=== PATIENT | female | born 1990 | race Caucasian/White ===

== ENCOUNTER 2016-07-26 09:54 | Emergency (ER) | payer MEDICAID ==
[~2016-07-26] VITALS: Ht 165.1 cm; Wt 56.7 kg
[~2016-07-26 09:54] MED LIST: ACET1TAB43 PO; BENZ56AE TP; CEFP500T4 PO; CEPH-506 PO; CODE-54 PO; CPH250CIP PO; DCS100C PO; DOCU100C37 PO; FAMO-119 PO; FRS325T PO; IBP600T1 PO; IBUP-1773 PO; NITR-65 PO; OMEP-10 PO; ONDAN4ODT PO; Ondansetron Hcl PO; PREN-98 PO; PREN1TAB19 PO; PREN1TAB39 PO; PROM25SU10 PR; PROM25TA14 PO
--- OUTSIDE RECORDS SUMMARY | 2016-07-26 10:00 | XMS REPORT | Continuity of Care Document ---
Author Author [facility] Organization [facility] Address Unknown Phone Unavailable Care Team Providers Care Counter Caser Name Role Phone DONTA ELKINS PCP Insurance Providers Payer Name Policy Number Subscriber Name Relationship [facility] [id number] Emiliana Villavicencio 16 Self / Same As Patient Advance Directives Directive Response Recorded Date/Time Advance Directives No 01/23/16 4:01pm Health Care Power of Deaf And Hard Of Hearing Teacher No 01/23/16 4:01pm Organ Donor Yes 01/23/16 4:01pm Resuscitation Status Full Code 01/23/16 4:01pm Problems No problem information available. Medications Current Home Medications Medication Dose Units Route Directions Days/Qty Instructions Start Date Vit37/Iron/Folic Acid 1 Each 1 Each Oral Daily 09/16/13 [Ondansetron Hcl] 4 Mg 4 Mg Oral Give Every 4 Hrs On Schedule as needed for Nausea/Vomiting 09/24/13 Cephalexin 250 Mg 250 Mg Oral Four Times Daily 01/24/16 Promethazine Hcl (Phenergan Tablet) 25 Mg 25 Mg Oral Every 6 Hours as needed for Nausea/Vomiting 01/24/16 Past Home Medications Medication Directions Ordered Status Promethazine Hcl 25 Mg Supp, 25 Mg Rectal Q 6 Hours 09/11/09 Discontinued Cefprozil 500 Mg Tablet, 1 Each Oral Twice A Day 09/11/09 Discontinued Vits W-Ca,Fe,Fa(<1MG) 1 Each Tablet, 1 Each Oral Daily 12/10/11 Discontinued Ondansetron Hcl 4 Mg Tab, 4 Mg Oral Every 4HRS 04/08/13 Discontinued Omeprazole 20 Mg Capsule.dr, 20 Mg Oral Daily 09/12/13 Discontinued Omeprazole 20 Mg Capsule.dr, 20 Mg Oral Daily 09/12/13 Discontinued Cephalexin Hcl 250 Mg Cap, 500 Mg Oral Four Times Daily 09/12/13 Discontinued Cephalexin Hcl 250 Mg Cap, 500 Mg Oral Four Times Daily 09/12/13 Discontinued Vit/Fe Fumarate/Fa 1 Each Tablet, 1 Each Oral Daily 09/12/13 Discontinued Acetaminophen/Codeine 1 Tab Tablet, 1-2 Tab Oral Every 4HRS as needed for Moderate To Severe Pain 09/24/13 Discontinued Benzocaine/Menthol 56 Ml Can, 56 Ml Topical As Directed as needed for Pain Discontinued Docusate Sodium 100 Mg Cap, 100 Mg Oral Twice A Day for Constipation Discontinued Ferrous Sulfate 325 Mg Tab, 325 Mg Oral Daily@08 09/24/13 Discontinued Ibuprofen 600 Mg Tab, 600 Mg Oral Every 6 Hours as needed for Pain 09/24/13 Discontinued Nitrofurantoin Monohyd/M-Cryst 100 Mg Capsule, 1 Tab Oral Twice A Day Discontinued Social History Social History Problem Response Recorded Date/Time Alcohol Use Past History 09/22/2013 1:35pm Recreational Drug Use N THC 09/22/2013 1:35pm Recent Foreign Travel No 01/23/2016 4:03pm Recent Infectious Disease Exposure No 01/23/2016 4:03pm Sexually Transmitted Disease No 09/22/2013 1:35pm HIV/AIDS No 09/22/2013 1:35pm Smoking Status Never a Smoker 01/23/2016 4:01pm Query Response Start Date Stop Date Smoking Status Never a Smoker Hospital Discharge Instructions No hospital discharge instructions. Plan of Care Discharge Date 01/24/16 1:06pm Instructions/Education Provided OB OUTPATIENT DISCHARGE Prescriptions See Medication Section Functional Status No functional status results. Allergies, Adverse Reactions, Alerts No known allergies. Immunizations Name Given Type Tetanus Booster (TDap) Unknown Historical Vital Signs Acute Vital Signs Vital Response Date/Time Temperature (Fahrenheit) 97.9 degrees F (97.6 - 99.5) 01/24/2016 1:30pm Temperature (Calculated Celsius) 36.04272 degrees C (36.4 - 37.5) 01/24/2016 1:30pm Temperature Source Tympanic 01/24/2016 1:30pm Pulse Rate (adult) 74 bpm (60 - 90) 01/24/2016 1:30pm Respiratory Rate 18 bpm (12 - 24) 01/24/2016 1:30pm Blood Pressure 114/72 mm Hg 01/24/2016 1:30pm Blood Pressure Mean 86 mm Hg 01/24/2016 1:30pm Pain Numeric Pain Scale 3 01/24/2016 8:15am Height (Feet) 5 feet 01/23/2016 4:03pm Height (Inches) 5.00 inches 01/23/2016 4:03pm Height (Calculated Centimeters) 165.852327 cm 01/23/2016 4:03pm Weight (Pounds) 146 pounds 01/23/2016 4:03pm Weight (Ounces) 12.7 oz 01/23/2016 4:03pm Weight (Calculated Grams) 50772.526 gm 01/23/2016 4:03pm Weight (Calculated Kilograms) 66.257246 kilograms 01/23/2016 4:03pm Calculated BMI 24.4 01/23/2016 4:03pm Results Laboratory Results Test Name Result Units Flags Reference Collection Date/Time Result Date/ Time Comments White Blood Count 10.2 10^3/uL 4.3-11.0 01/23/2016 4:55pm 01/23/2016 5: 19pm Red Blood Count 2.96 10^6/uL L 4.35-5.85 01/23/2016 4:55pm 01/23/2016 8: 04pm Hemoglobin 8.3 G/DL L 11.5-16.0 01/23/2016 4:55pm 01/23/2016 5:19pm Hematocrit 27 % L 35-52 01/23/2016 4:55pm 01/23/2016 5:19pm Mean Corpuscular Volume 92 FL 80-99 01/23/2016 4:55pm 01/23/2016 5: 19pm Mean Corpuscular Hemoglobin 29 PG 25-34 01/23/2016 4:55pm 01/23/2016 5: 19pm Mean Corpuscular Hemoglobin Concent 31 G/DL L 32-36 01/23/2016 4:55pm 06/2016 5:19pm Red Cell Distribution Width 17.7 % H 10.0-14.5 01/23/2016 4:55pm 2015 5:19pm Platelet Count 281 10^3/uL 130-400 01/23/2016 4:55pm 01/23/2016 5:19pm Mean Platelet Volume 10.8 FL H 7.4-10.4 01/23/2016 4:55pm 01/23/2016 5: 19pm Neutrophils (%) (Auto) 81 % H 42-75 01/23/2016 4:55pm 01/23/2016 5:19pm Lymphocytes (%) (Auto) 14 % 12-44 01/23/2016 4:55pm 01/23/2016 5:19pm Monocytes (%) (Auto) 5 % 0-12 01/23/2016 4:55pm 01/23/2016 5:19pm Eosinophils (%) (Auto) 0 % 0-10 01/23/2016 4:55pm 01/23/2016 5:19pm Basophils (%) (Auto) 0 % 0-10 01/23/2016 4:55pm 01/23/2016 5:19pm Neutrophils # (Auto) 8.2 X 10^3 H 1.8-7.8 01/23/2016 4:55pm 01/23/2016 5: 19pm Lymphocytes # (Auto) 1.4 X 10^3 1.0-4.0 01/23/2016 4:55pm 01/23/2016 5: 19pm Monocytes # (Auto) 0.5 X 10^3 0.0-1.0 01/23/2016 4:55pm 01/23/2016 5: 19pm Eosinophils # (Auto) 0.0 10^3/uL 0.0-0.3 01/23/2016 4:55pm 01/23/2016 5 :19pm Basophils # (Auto) 0.0 10^3/uL 0.0-0.1 01/23/2016 4:55pm 01/23/2016 5: 19pm Absolute Reticulocyte Count 71 10e9/L 24-90 01/23/2016 4:55pm 2015 8:04pm Percent Reticulocyte Count 2.40 % 0.50-2.40 01/23/2016 4:55pm 2015 8:04pm Urine Color JORGE * 01/23/2016 4:30pm 01/23/2016 4:55pm Urine Clarity VERY CLOUDY * 01/23/2016 4:30pm 01/23/2016 4:55pm Urine pH 6 5-9 01/23/2016 4:30pm 01/23/2016 4:55pm Urine Specific [place] 1.025 * 1.016-1.022 01/23/2016 4:30pm 2015 4:55pm Urine Protein 2+ * NEGATIVE 01/23/2016 4:30pm 01/23/2016 4:55pm Urine Glucose (UA) NEGATIVE NEGATIVE 01/23/2016 4:30pm 01/23/2016 4: 55pm Urine RBC (Auto) 1+ * NEGATIVE 01/23/2016 4:30pm 01/23/2016 4:55pm Urine Ketones 4+ * NEGATIVE 01/23/2016 4:30pm 01/23/2016 4:55pm Urine Nitrite NEGATIVE NEGATIVE 01/23/2016 4:30pm 01/23/2016 4:55pm Urine Bilirubin 1+ * NEGATIVE 01/23/2016 4:30pm 01/23/2016 4:55pm Urine Urobilinogen 8 MG/DL * NORMAL 01/23/2016 4:30pm 01/23/2016 4:55pm Urine Leukocyte Esterase 1+ * NEGATIVE 01/23/2016 4:30pm 01/23/2016 4: 55pm Urine RBC NONE /HPF 01/23/2016 4:30pm 01/23/2016 4:55pm Urine WBC 10-25 /HPF * 01/23/2016 4:30pm 01/23/2016 4:55pm Urine Bacteria LARGE /HPF * 01/23/2016 4:30pm 01/23/2016 4:55pm Urine Squamous Epithelial Cells 2-5 /HPF 01/23/2016 4:30pm 2015 4:55pm Urine Crystals NONE /LPF 01/23/2016 4:30pm 01/23/2016 4:55pm Urine Casts NONE /LPF 01/23/2016 4:30pm 01/23/2016 4:55pm Urine Mucus SMALL /LPF * 01/23/2016 4:30pm 01/23/2016 4:55pm Urine Culture Indicated YES 01/23/2016 4:30pm 01/23/2016 4:55pm Sodium Level 136 MMOL/L 135-145 01/24/2016 6:1401/24/2016 7:03am Potassium Level 3.4 MMOL/L L 3.6-5.0 01/24/2016 6:1401/24/2016 7:03am Chloride Level 104 MMOL/L 98-107 01/24/2016 6:1401/24/2016 7:03am Carbon Dioxide Level 23 MMOL/L 21-32 01/24/2016 6:1401/24/2016 7: 03am Anion Gap 9 MMOL/L 5-14 01/24/2016 6:1401/24/2016 7:03am Blood Urea Nitrogen 4 MG/DL L 7-18 01/24/2016 6:1401/24/2016 7:03am Creatinine 0.57 MG/DL L 0.60-1.30 01/24/2016 6:1401/24/2016 7:03am BUN/Creatinine Ratio 7 01/24/2016 6:1401/24/2016 7:03am Estimat Glomerular Filtration Rate > 60 01/24/2016 6:2015 7:03am GFR INTERPRETIVE DATA UNITS FOR ESTIMATED GFR (eGFR): mL/min/1.73 M2 REFERENCE RANGE FOR ESTIMATED GFR (eGFR) eGFR NORMAL eGFR >60 MODERATELY DECREASED eGFR 30-59 SEVERLY DECREASED eGFR 15-29 KIDNEY FAILURE <15 (OR DIALYSIS) Glucose Level 79 MG/DL 70-105 01/24/2016 6:1401/24/2016 7:03am Calcium Level 8.0 MG/DL L 8.5-10.1 01/24/2016 6:1401/24/2016 7:03am Total Bilirubin 0.5 MG/DL 0.1-1.0 01/23/2016 4:55pm 01/23/2016 5:26pm Alkaline Phosphatase 113 U/L 40-136 01/23/2016 4:55pm 01/23/2016 5: 26pm Aspartate Amino Transf (AST/SGOT) 15 U/L 5-34 01/23/2016 4:55pm 2015 5:26pm Alanine Aminotransferase (ALT/SGPT) 14 U/L 0-55 01/23/2016 4:55pm 01/22 5:26pm Total Protein 5.9 G/DL L 6.4-8.2 01/23/2016 4:55pm 01/23/2016 5:26pm Albumin 2.9 G/DL L 3.2-4.5 01/23/2016 4:55pm 01/23/2016 5:26pm Ferritin 27 ng/mL 15-150 01/23/2016 4:55pm 01/25/2016 8:58am Test performed at [facility], CLIA# [id number] [address] [place] [address] Iron Level 48 ug/dL 35-180 01/23/2016 4:55pm 01/24/2016 3:57pm Transferrin % Saturation 13 % L 15-50 01/23/2016 4:55pm 01/24/2016 3: 57pm Total Iron Binding Capacity 370 ug/dL 280-380 01/23/2016 4:55pm 2015 3:57pm Unsaturated Iron Binding Capacity 322 ug/dL 55-450 01/23/2016 4:55pm 3:57pm Test performed at [facility], CLIA# [id number] Microbiology Results Procedure Source Result Collection Date/Time Result Date/Time Urine Culture Urine, Clean Catch ESCHERICHIA COLI 01/23/2016 4:30pm 2015 12:15pm Procedures No known history of procedures. Encounters Encounter Location Arrival/Admit Date Discharge/Depart Date Attending Provider Departed Clinic [facility] 01/23/16 3:29pm 01/24/16 1: 06pm KANWAL JJ DO
--- NOTE | 2016-07-26 10:28 | ED Upper Extremity ---
General Chief Complaint: Upper Extremity Stated Complaint: L ARM INJ, FALL Nursing Triage Note: PT CO OF L ARM PAIN, STATES FELL ON ICE. DENIES HITTING HEAD OR LOC Nursing Sepsis Screen: No Definite Risk Source: patient History of Present Illness Time seen by provider: 10:22 Initial Comments The patient reports that she was coming down the back steps of her residence this morning. She stepped onto ice and fell backward rather awkwardly with her left arm thrown up and backwards. She picked herself up and went on to work. 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 She was unable to do the lifting required of her job and came here for further evaluation. Cosleep Pain/Injury Location: left shoulder Method of Injury: fell Allergies and Home Medications Allergies Coded Allergies: tramadol (Verified Allergy, Unknown, RASH, 04/27/16) Home Medications No Active Prescriptions or Reported Meds Constitutional: see HPI EENTM: no symptoms reported Respiratory: no symptoms reported Cardiovascular: no symptoms reported Gastrointestinal: no symptoms reported Genitourinary: no symptoms reported Musculoskeletal: see HPI Skin: no symptoms reported Psychiatric/Neurological: No Symptoms Reported Past Aaedyer-Leqyim-Qyityn Hx Patient Social History Alcohol Use: Denies Use Recreational Drug Use: No Smoking Status: Never a Smoker Recent Foreign Travel: No Contact w/Someone Who Travel: No Recent Infectious Disease Expo: No Recent Hopitalizations: No Physical Abuse Screen: No Sexual Abuse: No Immunizations Up To Date Tetanus Booster (TDap): Unknown Seasonal Allergies Seasonal Allergies: No Surgeries HX Surgeries: No Respiratory Hx Respiratory Disorders: No Cardiovascular Hx Cardiac Disorders: No Neurological Hx Neurological Disorders: No Reproductive System Hx Reproductive Disorders: No Sexually Transmitted Disease: No HIV/AIDS: No Female Reproductive Disorders: Denies Genitourinary Hx Genitourinary Disorders: No Gastrointestinal Hx Gastrointestinal Disorders: No Musculoskeletal Hx Musculoskeletal Disorders: No Endocrine Hx Endocrine Disorders: No HEENT HX ENT Disorders: No Cancer Hx Cancer: No Psychosocial Hx Psychiatric Problems: No Integumentary HX Skin/Integumentary Disorder: No Blood Transfusions Hx Blood Disorders: No Adverse Reaction to a Blood Tr: No Family Medical History Family Medial History: Congenital heart disease Family history: Diabetes mellitus Physical Exam Vital Signs Vital Sign - Last 12Hours 07/26/16 10:00 Temp 98.1 Pulse 83 Resp 18 B/P 137/95 Pulse Ox 99 Capillary Refill : Less Than 3 Seconds General Appearance: mild distress HEENT: normal ENT inspection Neck: full range of motion Cardiovascular: normal peripheral pulses regular rate, rhythm no edema no gallop no JVD no murmur Respiratory: chest non-tender lungs clear normal breath sounds no respiratory distress no accessory muscle use Shoulder: no evidence of injury bone tenderness Wrist: Yes normal inspection, Yes non-tender, Yes no evidence of injury, Yes normal ROM Hand: normal inspection, non-tender, no evidence of injury, normal ROM Neurologic/Psychiatric: manager estate II-XII nml as tested no motor/sensory deficits alert normal mood/affect oriented x 3 Skin: normal color warm/dry Lymphatic: no adenopathy Progress/Results/Core Measures Results/Orders My Orders Orders-ARIAS ROBLES MD Shoulder, Left, 3 Views (07/26/16 10:13) Clavicle, Left (07/26/16 10:13) Vital Signs/I&O Vital Sign - Last 12Hours 07/26/16 10:00 Temp 98.1 Pulse 83 Resp 18 B/P 137/95 Pulse Ox 99 Blood Pressure Mean: 109 Departure Communication Progress Notes X-ray show no evidence of bony abnormalities Impression Impression: Primary Impression: left shoulder strain Disposition: 01 HOME, SELF-CARE Condition: Stable/Unchanged Departure-Patient Inst. Decision time for Depature: 11:35 Referrals: [facility] (PCP/Family) Primary Care Physician Patient Instructions: Muscle Strain (DC) Add. Discharge Instructions: All discharge instructions reviewed with patient and/or family. Voiced understanding. Use ice pack today. Aleve 2 tabs twice daily or Advil 3 tabs 3 times daily Scripts No Active Prescriptions or Reported Meds ARIAS ROBLES MD Jul 26, 2016 10:28
--- NOTE | 2016-07-26 10:48 | Diagnostic Imaging Report ---
Indication: Fall with left shoulder pain. Exam: AP, oblique, and lateral views of the left shoulder. Findings: No fracture or acute bony abnormality seen. There is no dislocation. Impression: Negative left shoulder. Dictated by: Dictated on workstation # [id number]
--- NOTE | 2016-07-26 10:56 | Diagnostic Imaging Report ---
INDICATION: Fall with left clavicle pain. AP and angle views of left clavicle are obtained. FINDINGS: No fracture or acute bony abnormality is seen. AC joint appears unremarkable. IMPRESSION: Negative left clavicle. Dictated by: Dictated on workstation # [id number]
[2016-07-26 11:43] VITALS: BP 137/95
== END 2016-07-26 11:43 | disposition home or self-care (01) ==
LOC: EDUNIT# 09:54 → ER 09:57
DX: S46.912A Strain of unspecified muscle, fascia and tendon at shoulder and upper arm level, left arm, initial encounter (principal); W00.1XXA Fall from stairs and steps due to ice and snow, initial encounter; Y92.018 Other place in single-family (private) house as the place of occurrence of the external cause; Y99.8 Other external cause status
CPT/HCPCS: 73000; 73030

== ENCOUNTER 2020-11-02 13:51 | Inpatient (IN) | payer MEDICAID, OTHER ==
[~2020-11-02] VITALS: Ht 165 cm; Wt 71.4 kg
[2020-11-02] MEDS ORDERED: ONDANSETRON 4 MG/2 ML (SDV) Z0FRAN IVP ONE (14:15)
[2020-11-02] MEDS ORDERED: diphenhydrAMINE 50 MG/ML INJ (BENADRYL) IVP ONE (14:15)
[2020-11-02] MEDS ORDERED: NS IV 1000 ML 1,000 ML IV SCH ×2 (14:15→15:00)
--- NOTE | 2020-11-02 14:21 | ED GI ---
General Chief Complaint: Abdominal/GI Problems Stated Complaint: 16 WEEKS PREG / VOMITTING / LIGHTHEADED Nursing Triage Note: PT PRESENTS TO ED VIA POV FROM HOME WITH COMPLAINTS OF N/V ABD PAIN. PT REPORTS SHE IS APROX 16 WEEKS PREG. PT REPORTS NO IMPROVEMNT WHEN USING HOME ZOFRAN. Sepsis Screen: No Definite Risk Source of Information: Patient Exam Limitations: No Limitations History of Present Illness Date Seen by Provider: Nov 02, 2020 Time Seen by Provider: 14:20 Initial Comments To ER with reports of nausea vomiting lightheadedness. She has been nauseated and vomiting for 2 months. Her last dose of Zofran was 3 days ago. She is Ab1. Follows with Dr. Montelongo. She tried smoking some marijuana to help with the nausea but it did not help. Timing/Duration: 1-2 Days Severity/Quality: Moderate Location: Epigastric Radiation: No Radiation Activities at Onset: None Associated Symptoms: Nausea/Vomiting Allergies and Home Medications Allergies Coded Allergies: tramadol (Verified Allergy, Unknown, RASH, 04/27/16) Home Medications No Active Prescriptions or Reported Meds Patient Home Medication List Home Medication List Reviewed: Yes Review of Systems Review of Systems Constitutional: see HPI EENTM: No Symptoms Reported Respiratory: No Symptoms Reported Cardiovascular: No Symptoms Reported Gastrointestinal: No Symptoms Reported Genitourinary: No Symptoms Reported Musculoskeletal: no symptoms reported Skin: no symptoms reported Psychiatric/Neurological: No Symptoms Reported Endocrine: No Symptoms Reported Hematologic/Lymphatic: No Symptoms Reported Past Lpvowvq-Ayiovw-Yauzah Hx Patient Social History Alcohol Use: Denies Use Smoking Status: Never a Smoker Recent Infectious Disease Expo: No Recent Hopitalizations: No Immunizations Up To Date Tetanus Booster (TDap): Unknown Seasonal Allergies Seasonal Allergies: No Past Medical History Surgeries: No Respiratory: No Cardiac: No Neurological: No Reproductive Disorders: No Female Reproductive Disorders: Denies Sexually Transmitted Disease: No HIV/AIDS: No Gastrointestinal: No Musculoskeletal: No Endocrine: No Cancer: No Psychosocial: No Integumentary: No Blood Disorders: No Adverse Reaction/Blood Tranf: No Family Medical History Congenital heart disease (PT'S FATHER) Family history: Diabetes mellitus (GRANDMOTHER) Physical Exam Vital Signs Vital Signs - First Documented 11/02/20 14:09 Temp 36.2 Pulse 130 Resp 18 B/P (MAP) 115/87 (96) Pulse Ox 97 Capillary Refill : Less Than 3 Seconds Height/Weight/BMI Height: 5'5" Weight: 125lbs. 4.0oz. [id number]; 26.00 BMI Method:Stated General Appearance: WD/WN, mild distress (dry heaving. appears uncomfortable. Tachycardia), other (Dry mucous membranes) HEENT: PERRL/EOMI, normal ENT inspection, other (Poor dentition) Respiratory: lungs clear, no respiratory distress, no accessory muscle use Cardiovascular: no edema, tachycardia (130s) Gastrointestinal: normal bowel sounds, soft Extremities: normal range of motion, non-tender Neurologic/Psychiatric: alert, normal mood/affect, oriented x 3 Skin: normal color, warm/dry Progress/Results/Core Measures Results/Orders Lab Results Laboratory Tests Test 11/02/20 14:15 11/02/20 14:55 Range/Units White Blood Count 26.1 H 4.3-11.0 10^3/uL Red Blood Count 5.02 3.80-5.11 10^6/uL Hemoglobin 15.1 11.5-16.0 g/dL Hematocrit 44 35-52 % Mean Corpuscular Volume 87 80-99 fL Mean Corpuscular Hemoglobin 30 25-34 pg Mean Corpuscular Hemoglobin Concent 35 32-36 g/dL Red Cell Distribution Width 14.5 10.0-14.5 % Platelet Count 319 130-400 10^3/uL Mean Platelet Volume 12.7 H 9.0-12.2 fL Immature Granulocyte % (Auto) 2 % Neutrophils (%) (Auto) 86 H 42-75 % Lymphocytes (%) (Auto) 8 L 12-44 % Monocytes (%) (Auto) 4 0-12 % Eosinophils (%) (Auto) 0 0-10 % Basophils (%) (Auto) 0 0-10 % Neutrophils # (Auto) 22.5 H 1.8-7.8 10^3/uL Lymphocytes # (Auto) 2.0 1.0-4.0 10^3/uL Monocytes # (Auto) 1.1 H 0.0-1.0 10^3/uL Eosinophils # (Auto) 0.0 0.0-0.3 10^3/uL Basophils # (Auto) 0.1 0.0-0.1 10^3/uL Immature Granulocyte # (Auto) 0.4 H 0.0-0.1 10^3/uL Neutrophils % (Manual) 80 % Lymphocytes % (Manual) 8 % Monocytes % (Manual) 6 % Eosinophils % (Manual) 0 % Basophils % (Manual) 0 % Band Neutrophils 6 % Stomatocytes MODERATE Sodium Level 124 *L 135-145 MMOL/L Potassium Level 2.2 *L 3.6-5.0 MMOL/L Chloride Level 63 L 98-107 MMOL/L Carbon Dioxide Level 36 H 21-32 MMOL/L Anion Gap 25 H 5-14 MMOL/L Blood Urea Nitrogen 22 H 7-18 MG/DL Creatinine 1.67 H 0.60-1.30 MG/DL Estimat Glomerular Filtration Rate 36 BUN/Creatinine Ratio 13 Glucose Level 155 H 70-105 MG/DL Calcium Level 10.8 H 8.5-10.1 MG/DL Corrected Calcium 10.6 H 8.5-10.1 MG/DL Magnesium Level 1.9 1.6-2.4 MG/DL Total Bilirubin 1.8 H 0.1-1.0 MG/DL Aspartate Amino Transf (AST/SGOT) 165 H 5-34 U/L Alanine Aminotransferase (ALT/SGPT) 278 H 0-55 U/L Alkaline Phosphatase 80 40-136 U/L Total Protein 8.2 6.4-8.2 GM/DL Albumin 4.3 3.2-4.5 GM/DL Human Chorionic Gonadotropin, Quant [id number] H <5 MIU/ML Urine Color YELLOW Urine Clarity CLEAR Urine pH 6.0 5-9 Urine Specific [place] >=1.030 1.016-1.022 Urine Protein 2+ H NEGATIVE Urine Glucose (UA) NEGATIVE NEGATIVE Urine Ketones 2+ H NEGATIVE Urine Nitrite NEGATIVE NEGATIVE Urine Bilirubin 2+ H NEGATIVE Urine Urobilinogen 2.0 < = 1.0 MG/DL Urine Leukocyte Esterase NEGATIVE NEGATIVE Urine RBC (Auto) TRACE-I NEGATIVE Urine RBC NONE /HPF Urine WBC 5-10 H /HPF Urine Squamous Epithelial Cells 5-10 /HPF Urine Crystals NONE /LPF Urine Bacteria MODERATE H /HPF Urine Casts PRESENT /LPF Urine Hyaline Casts 10-25 H /LPF Urine Mucus SMALL H /LPF Urine Culture Indicated YES Urine Opiates Screen NEGATIVE NEGATIVE Urine Oxycodone Screen NEGATIVE NEGATIVE Urine Methadone Screen NEGATIVE NEGATIVE Urine Propoxyphene Screen NEGATIVE NEGATIVE Urine Barbiturates Screen NEGATIVE NEGATIVE Ur Tricyclic Antidepressants Screen NEGATIVE NEGATIVE Urine Phencyclidine Screen NEGATIVE NEGATIVE Urine Amphetamines Screen NEGATIVE NEGATIVE Urine Methamphetamines Screen NEGATIVE NEGATIVE Urine Benzodiazepines Screen NEGATIVE NEGATIVE Urine Cocaine Screen NEGATIVE NEGATIVE Urine Cannabinoids Screen POSITIVE H NEGATIVE My Orders Orders - JAMILAH HERNANDEZ APRN Cbc With Automated Diff (11/02/20 14:08) Comprehensive Metabolic Panel (11/02/20 14:08) Ua Culture If Indicated (11/02/20 14:08) Drug Screen Stat (Urine) (11/02/20 14:08) Hcg,Quantitative (11/02/20 14:08) Ed Iv/Invasive Line Start (11/02/20 14:08) Ns Iv 1000 Ml (Sodium Chloride 0.9%) (11/02/20 14:15) Ondansetron Injection (Zofran Injectio (11/02/20 14:15) Diphenhydramine Injection (Benadryl Inje (11/02/20 14:15) Manual Differential (11/02/20 14:15) Potassium Cl 10meq/50ml Ivpb (Kcl 10 Meq (11/02/20 15:00) Magnesium (11/02/20 14:50) Ns Iv 1000 Ml (Sodium Chloride 0.9%) (11/02/20 15:00) Us Gallbladder [id number] (11/02/20 14:51) Promethazine Injection (Phenergan Injec (11/02/20 15:15) Urine Culture (11/02/20 14:55) Medications Given in ED Current Medications Medications Dose Ordered Sig/Dede Route Start Time Stop Time Status Last Admin Dose Admin Diphenhydramine HCl 25 mg ONCE ONCE IVP 11/02/20 14:15 11/02/20 14:16 DC 11/02/20 14:23 25 MG Ondansetron HCl 4 mg ONCE ONCE IVP 11/02/20 14:15 11/02/20 14:16 DC 11/02/20 14:23 4 MG Promethazine HCl 25 mg ONCE ONCE IVP 11/02/20 15:15 11/02/20 15:16 DC 11/02/20 15:16 25 MG Vital Signs/I&O 11/02/20 14:09 Temp 36.2 Pulse 130 Resp 18 B/P (MAP) 115/87 (96) Pulse Ox 97 Blood Pressure Mean: 96 Diagnostic Imaging Diagonstic Imaging: Ultrasound Comments NAME: EMILIANA [facility] REC#: [id number] PT STATUS: REG ER : 1990 PHYSICIAN: JAMILAH HERNANDEZ APRN ADMIT DATE: 11/02/20/ER Draft Date of Exam:11/02/20 US GALLBLADDER [id number] INDICATION: Epigastric pain. TECHNIQUE: Gallbladder sonography was performed in the routine fashion. FINDINGS: The liver shows normal echogenicity with no focal abnormality. The portal vein is patent with hepatopetal flow. The gallbladder contains some sludge but no definite stones or wall thickening. The common duct measures 4 mm. The pancreas is unremarkable to the extent seen. The visualized portions of the aorta and IVC are normal. The right kidney measures 9.7 cm in length and is unremarkable. There is no ascites. IMPRESSION: There is sludge in the gallbladder with no stones, wall thickening, or biliary dilatation. No other abnormality. Dictated on workstation # [id number] Dict: 11/02/20 1549 Trans: 11/02/20 1552 [id number] Interpreted by: DEONDRE NAJERA MD Electronically signed by: Departure Communication (Admissions) She has had a few episodes of ventricular bigeminy here. Currently she is normal sinus rhythm rate of 103 blood pressure 140/100. Given the electrolyte derangement she will need to be admitted. 1558-I spoke with Dr. Montelongo. Would like this admission to go to medicine he be happy to consult. Spoke with Dr. Ramos. She will take the admission to ICU. She like Dr. Posadas notified, Dr. Kapadia notified, Dr. Bolanos notified. I spoke with each of these individuals. We will give potassium replacement of 60 mEq IV which has been started in the emergency room. 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 EKG shows a borderline prolonged QT interval at 477 ms. For this reason we will avoid Zofran and treat her nausea with Phenergan. Impression Primary Impression: Electrolyte abnormality Additional Impressions: Nausea/vomiting in Ventricular bigeminy seen on silvering applicator Disposition: ADMITTED INPATIENT Condition: Stable Admissions Decision to Admit Reason: Admit from ER (General) Decision to Admit/Date: Nov 02, 2020 Time/Decision to Admit Time: 15:14 Departure-Patient Inst. Referrals: [facility] [place] (PCP/Family) Primary Care Physician Scripts No Active Prescriptions or Reported Meds JAMILAH HERNANDEZ APRN Nov 02, 2020 14:21
[2020-11-02 14:22] LABS: BASOPHILS # (AUTO) 0.1 10^3/uL (0.0-0.1); BASOPHILS % (AUTO) 0 % (0-10); EOSINOPHILS % (AUTO) 0 % (0-10); HEMATOCRIT 44 % (35-52); HEMOGLOBIN 15.1 g/dL (11.5-16.0); LYMPHOCYTES % (AUTO) 8 % (12-44); MEAN CORPUSCULAR HEMOGLOBIN 30 pg (25-34); MEAN CORPUSCULAR HGB CONC 35 g/dL (32-36); MEAN CORPUSCULAR VOLUME 87 fL (80-99); MEAN PLATELET VOLUME 12.7 fL (9.0-12.2); MONOCYTES # (AUTO) 1.1 10^3/uL (0.0-1.0); MONOCYTES % (AUTO) 4 % (0-12); NEUTROPHILS # (AUTO) 22.5 10^3/uL (1.8-7.8); NEUTROPHILS % (AUTO) 86 % (42-75); PLATELET COUNT 319 10^3/uL (130-400); WHITE BLOOD COUNT 26.1 10^3/uL (4.3-11.0)
[2020-11-02 14:40] LABS: ALBUMIN 4.3 GM/DL (3.2-4.5)
[2020-11-02 14:41] LABS: CALCIUM 10.8 MG/DL (8.5-10.1)
[2020-11-02 14:43] LABS: TOTAL PROTEIN 8.2 GM/DL (6.4-8.2)
[2020-11-02 14:44] LABS: BILIRUBIN,TOTAL 1.8 MG/DL (0.1-1.0)
[2020-11-02 14:46] LABS: CREATININE SERUM 1.67 MG/DL (0.60-1.30)
[2020-11-02 14:51] LABS: POTASSIUM 2.2 MMOL/L (3.6-5.0)
[2020-11-02 15:00] LABS: BAND NEUTROPHILS 6 %; BASOPHILS % (MANUAL) 0 %; EOSINOPHILS % (MANUAL) 0 %; LYMPHOCYTES % (MANUAL) 8 %; MONOCYTES % (MANUAL) 6 %; NEUTROPHILS % (MANUAL) 80 %; STOMATOCYTES MODERATE
[2020-11-02 15:00] LABS: CLARITY,URINE CLEAR; COLOR,URINE YELLOW; GLUCOSE, URINE (UA) NEGATIVE (NEGATIVE); KETONES,URINE 2+ (NEGATIVE); LEUKOCYTE ESTERASE ,URINE NEGATIVE (NEGATIVE); NITRITE,URINE NEGATIVE (NEGATIVE); PROTEIN,URINE 2+ (NEGATIVE)
[2020-11-02] MEDS: POTASSIUM CL 10MEQ/50ML IVPB 50 ML IV SCH ×5 (15:04→23:19)
[2020-11-02 15:12] LABS: AMPHETAMINE SCREEN, URINE NEGATIVE (NEGATIVE); BACTERIA,URINE MODERATE /HPF; BARBITURATE SCREEN URINE NEGATIVE (NEGATIVE); BENZODIAZEPINES SCREEN URINE NEGATIVE (NEGATIVE); BILIRUBIN,URINE 2+ (NEGATIVE); CANNABINOID SCREEN, URINE POSITIVE (NEGATIVE); COCAINE SCREEN URINE NEGATIVE (NEGATIVE); METHADONE STAT NEGATIVE (NEGATIVE); METHAMPHETAMINE SCREEN URINE S NEGATIVE (NEGATIVE); OPIATE SCREEN URINE NEGATIVE (NEGATIVE); OXYCODONE STAT NEGATIVE (NEGATIVE); PROPOXYPHENE STAT NEGATIVE (NEGATIVE); TRICYCLIC ANTIDEPRESSANTS SCRE NEGATIVE (NEGATIVE)
[2020-11-02] MEDS ORDERED: PROMETHAZINE INJ 25 MG/ML (PHENERGAN) AMP IVP ONE (15:15)
--- NOTE | 2020-11-02 15:52 | Diagnostic Imaging Report ---
INDICATION: Epigastric pain. TECHNIQUE: Gallbladder sonography was performed in the routine fashion. FINDINGS: The liver shows normal echogenicity with no focal abnormality. The portal vein is patent with hepatopetal flow. The gallbladder contains some sludge but no definite stones or wall thickening. The common duct measures 4 mm. The pancreas is unremarkable to the extent seen. The visualized portions of the aorta and IVC are normal. The right kidney measures 9.7 cm in length and is unremarkable. There is no ascites. IMPRESSION: There is sludge in the gallbladder with no stones, wall thickening, or biliary dilatation. No other abnormality. Dictated by: Dictated on workstation # [id number]
[2020-11-02] MEDS ORDERED: cefTRIAXone FOR IV USE 1,000 MG in WATER (STERILE) FOR INJECTION 10 ML IV ONE (16:15)
[2020-11-02] MEDS ORDERED: WATER (STERILE) FOR INJECTION 10 ML ONE (16:54)
[2020-11-02] MEDS ORDERED: cefTRIAXone 1,000 MG IV (ROCEPHIN) VIAL ONE (16:54)
[2020-11-02] MEDS ORDERED: LORazepam INJ 2 MG/ML (ATIVAN) VIAL IVP PRN (17:00)
--- NOTE | 2020-11-02 17:36 | Consultation-Cardiology ---
HPI-Cardiology Cardiology Consultation: Date of Consultation 11/02/20 Time Seen by a Provider: 17:15 Date of Admission 11-02-20 Attending Physician Florecita Ramos DO Admitting Physician [facility] Consulting Physician Emre Crespo MD HPI: Chief Complaint: Tachycardia Ms. Villavicencio is a 30 yr old female admitted to ICU 6 from the ED with tachycardia. She reports she is 16 weeks with her 4 . She states she has had nausea/vomiting which has been intractable throughout her entire . She reports she smoked marijuana today hoping it would help the nausea. She denies any CP or LE swelling. She states this morning she did become nauseated and vomited at which time she did feel weak and thinks she passed out hitting her head on a trash can. She states she came to when she hit her head. She states she continues to feel weak and shaky. Review of Systems-Cardiology Review of Systems Constitutional: No chills, No fever; lightheadedness, weight gain Eyes: No vision change Ears/Nose/Throat: No epistaxis, No recent hearing loss Respiratory: As described under HPI Cardiovascular: As described under HPI Gastrointestinal: As described under HPI Genitourinary: No dysuria, No hematuria Musculoskeletal: no symptoms reported Skin: No rash on exposed areas Psychiatric/Neurological: As described under HPI Hematologic: No bleeding abnormalities IRH-Hfotcn-Cdduho Hx Patient Social History Smoking Status: Never a Smoker Immunizations Up To Date Tetanus Booster (TDap): Unknown Past Medical History PMH As described under Assessment. Family Medical History Family Medical History: She reports her father and brother both had congenital heart disease (hole in their heart) requiring surgical repair. Family History: Congenital heart disease (PT'S FATHER) Family history: Diabetes mellitus (GRANDMOTHER) Allergies and Home Medications Allergies Coded Allergies: tramadol (Verified Allergy, Unknown, RASH, 04/27/16) Home Medications No Active Prescriptions or Reported Meds Physical Exam-Cardiology Physical Exam Vital Signs/I&O 11/02/20 11/02/20 11/02/20 11/02/20 19:54 20:00 20:00 21:00 Temp 36.8 Pulse 102 98 B/P (MAP) 130/78 (95) 134/81 (98) Pulse Ox 97 97 96 O2 Delivery Room Air Room Air Room Air 4/22/11/02/20 11/02/20 11/03/20 22:00 23:00 23:59 00:00 Pulse 98 121 101 Resp 20 29 B/P (MAP) 126/71 (89) 134/70 (91) Pulse Ox 96 97 97 97 O2 Delivery Room Air Room Air Room Air Room Air 11/03/20 11/03/20 11/03/20 11/03/20 01:00 01:00 02:00 03:00 Pulse 102 95 102 96 Resp 20 28 B/P (MAP) 121/80 (94) 135/68 (90) 124/70 (88) Pulse Ox 98 95 99 O2 Delivery Room Air Room Air Room Air 11/03/20 11/03/20 11/03/20 11/03/20 04:00 04:00 05:00 06:00 Pulse 97 97 101 Resp 28 28 38 B/P (MAP) 116/73 (87) 112/70 (84) 129/81 (97) Pulse Ox 98 97 98 95 O2 Delivery Room Air Room Air Room Air Room Air 11/03/20 11/03/20 07:00 07:00 Pulse 102 101 Resp 28 B/P (MAP) 120/67 (84) Pulse Ox 96 O2 Delivery Room Air 11/03/20 00:00 Intake Total 450 ml Balance 450 ml Capillary Refill : Less Than 3 Seconds Constitutional: AAO x 3, well-developed, well-nourished HEENT: PERRL, hearing is well preserved; No oral hygience is good Neck: No carotid bruit; carotid pulses are 2 + bilaterally Respiratory: No accessory muscle use, No respiratory distress; chest expansion is symmetric, chest is bilaterally symmetric Cardiovascular: regular rate-rhythm; No JVD; S1 and S2 Gastrointestinal: soft, audible bowel sounds Extremities: no lower extremity edema bilateral Neurologic/Psychiatric: grossly intact (moves all extremities) Skin: No rash on exposed areas, No ulcerations on exposed areas Data Review Labs Laboratory Tests 11/02/20 14:15: White Blood Count 26.1H, Red Blood Count 5.02, Hemoglobin 15.1, Hematocrit 44, Mean Corpuscular Volume 87, Mean Corpuscular Hemoglobin 30, Mean Corpuscular Hemoglobin Concent 35, Red Cell Distribution Width 14.5, Platelet Count 319, Mean Platelet Volume 12.7H, Immature Granulocyte % (Auto) 2, Neutrophils (%) (Auto) 86H, Lymphocytes (%) (Auto) 8L, Monocytes (%) (Auto) 4, Eosinophils (%) (Auto) 0, Basophils (%) (Auto) 0, Neutrophils # (Auto) 22.5H, Lymphocytes # (Auto) 2.0, Monocytes # (Auto) 1.1H, Eosinophils # (Auto) 0.0, Basophils # (Auto) 0.1, Immature Granulocyte # (Auto) 0.4H, Neutrophils % (Manual) 80, Lymphocytes % (Manual) 8, Monocytes % (Manual) 6, Eosinophils % (Manual) 0, Basophils % (Manual) 0, Band Neutrophils 6, Stomatocytes MODERATE, Sodium Level 124*L, Potassium Level 2.2*L, Chloride Level 63L, Carbon Dioxide Level 36H, Anion Gap 25H, Blood Urea Nitrogen 22H, Creatinine 1.67H, Estimat Glomerular Filtration Rate 36, BUN/Creatinine Ratio 13, Glucose Level 155H, Calcium Level 10.8H, Corrected Calcium 10.6H, Magnesium Level 1.9, Total Bilirubin 1.8H, Aspartate Amino Transf (AST/SGOT) 165H, Alanine Aminotransferase (ALT/SGPT) 278H , Alkaline Phosphatase 80, Total Protein 8.2, Albumin 4.3, Human Chorionic Gonadotropin, Quant [id number] 11/02/20 14:55: Urine Color YELLOW, Urine Clarity CLEAR, Urine pH 6.0, Urine Specific [place] >=1.030, Urine Protein 2+H, Urine Glucose (UA) NEGATIVE, Urine Ketones 2+H, Urine Nitrite NEGATIVE, Urine Bilirubin 2+H, Urine Urobilinogen 2.0, Urine Leukocyte Esterase NEGATIVE, Urine RBC (Auto) TRACE-I, Urine RBC NONE, Urine WBC 5-10H, Urine Squamous Epithelial Cells 5-10, Urine Crystals NONE, Urine Bacteria MODERATEH, Urine Casts PRESENT, Urine Hyaline Casts 10-25H, Urine Mucus SMALLH, Urine Culture Indicated YES, Urine Opiates Screen NEGATIVE, Urine Oxycodone Screen NEGATIVE, Urine Methadone Screen NEGATIVE, Urine Propoxyphene Screen NEGATIVE, Urine Barbiturates Screen NEGATIVE, Ur Tricyclic Antidepressants Screen NEGATIVE, Urine Phencyclidine Screen NEGATIVE, Urine Amphetamines Screen NEGATIVE, Urine Methamphetamines Screen NEGATIVE, Urine Benzodiazepines Screen NEGATIVE, Urine Cocaine Screen NEGATIVE, Urine Cannabinoids Screen POSITIVEH 11/02/20 19:50: Sodium Level 127L, Potassium Level 2.1*L, Chloride Level 77#L, Carbon Dioxide Level 31, Anion Gap 19H, Blood Urea Nitrogen 15, Creatinine 0.86, Estimat Glomerular Filtration Rate > 60, BUN/Creatinine Ratio 17, Glucose Level 107H, Calcium Level 8.6 11/03/20 00:15: Sodium Level 128L, Potassium Level 2.4*L, Chloride Level 82L, Carbon Dioxide Level 29, Anion Gap 17H, Blood Urea Nitrogen 12, Creatinine 0.76, Estimat Glomerular Filtration Rate > 60, BUN/Creatinine Ratio 16, Glucose Level 99, Calcium Level 8.2L 11/03/20 03:35: Sodium Level 128L, Potassium Level 2.8L, Chloride Level 87L, Carbon Dioxide Level 27, Anion Gap 14, Blood Urea Nitrogen 11, Creatinine 0.70, Estimat Glomerular Filtration Rate > 60, BUN/Creatinine Ratio 16, Glucose Level 98, Calcium Level 7.9L, Corrected Calcium 8.8, Phosphorus Level 2.4, Magnesium Level 1.9, Total Bilirubin 1.3H, Aspartate Amino Transf (AST/SGOT) 177H, Alanine Aminotransferase (ALT/SGPT) 262H, Alkaline Phosphatase 53, Total Protein 5.2L, Albumin 2.9L Radiology NAME: EMILIANA VILLAVICENCIO [facility] REC#: [id number] PT STATUS: ADM IN : 1990 PHYSICIAN: JAMILAH HERNANDEZ APRN ADMIT DATE: 11/02/20/ICU Signed Date of Exam:11/02/20 US GALLBLADDER [id number] INDICATION: Epigastric pain. TECHNIQUE: Gallbladder sonography was performed in the routine fashion. FINDINGS: The liver shows normal echogenicity with no focal abnormality. The portal vein is patent with hepatopetal flow. The gallbladder contains some sludge but no definite stones or wall thickening. The common duct measures 4 mm. The pancreas is unremarkable to the extent seen. The visualized portions of the aorta and IVC are normal. The right kidney measures 9.7 cm in length and is unremarkable. There is no ascites. IMPRESSION: There is sludge in the gallbladder with no stones, wall thickening, or biliary dilatation. No other abnormality. Dictated by: Dictated on workstation # [id number] Dict: 11/02/20 1549 Trans: 11/02/20 1632 [id number] Interpreted by: DEONDRE NAJERA MD Electronically signed by: DEONDRE NAJERA MD 11/02/20 1632 ECG Impression ECG Initial ECG Rhythm: S.Tach A/P-Cardiology Assessment/Admission Diagnosis Palpitations secondary to sinus tachycardia likely d/t electrolyte abnormalities 16 weeks Hyperemesis gravidarum Electrolyte abnormalities likely secondary to hyperemesis Marijuana use Discussion and Recomendations Sinus tachycardia likely secondary to vol depletion and electrolyte abnormalities d/t hyperemsis gravidarum Acute renal insufficiency likely d/t vol depletion Replace electrolytes IVF to replace volume Management of with OB services Echocardiogram to eval structure and function Further recs will be based on her hospital course We would like to thank medical services for this consult REGGIE HERMOSILLO Nov 02, 2020 17:36
[2020-11-02] MEDS: NS IV 1000 ML 1,000 ML IV SCH (18:00)
--- NOTE | 2020-11-02 18:01 | History & Physical-Hospitalist ---
History of Present Illness HPI/Chief Complaint CC: N/V with electrolyte abnormalities and 16 weeks HPI: This is a 30yoWF who presents to the ER with severe N/V and abdominal pain who was assessed to be 16 weeks with severe electrolyte abnormalities. Severe hyponatremia and hypokalemia with gallbladder sludge on imaging placed her at high risk for mortality for patient and fetus so she was placed in ICU with multiple consultants. Currently she is having mucous in her throat. Source: patient Exam Limitations: clinical condition Date Seen 11/02/20 Time Seen by a Provider: 18:30 Attending Physician Florecita Ramos DO [facility] Referring Physician Date of Admission Nov 02, 2020 at 15:40 Home Medications & Allergies Home Medications Reviewed patient Home Medication Reconciliation performed by pharmacy medication reconciliations biometric fingerprinting technician and/or nursing. Patients Allergies have been reviewed. Allergies Allergies Coded Allergies tramadol (Verified Allergy, Unknown, RASH, 04/27/16) Patient Social History Marrital Status: single Employed/Student: unemployed Tobacco Use?: No Smoking Status: Never a Smoker Use of E-Cig and/or Vaping dev: No Substance use?: Yes Substance type: Marijuana only once- told help with N Substance frequency: Rarely Alcohol Use?: No Pt stated abuse/neglect: No Immunizations Up To Date Influenza Vaccine Up-to-Date: No; Not Current Tetanus Booster (TDap): Unknown Current Status Do you have an Advance Directi: No Communicates: Verbally Primary Language: Chinese Preferred Spoken Language: Chinese Is interpretation needed?: No Implanted or Applied Medical D: None Past Medical History Remote hx of seizures Review of Systems Constitutional: see HPI Gastrointestinal: abdominal pain, loss of appetite, nausea, vomiting Physical Exam Physical Exam Vital Signs Vital Signs - First Documented 11/02/20 11/02/20 14:09 17:40 Temp 36.2 Pulse 130 Resp 18 B/P (MAP) 115/87 (96) Pulse Ox 97 O2 Delivery Room Air Capillary Refill : Less Than 3 Seconds Height, Weight, BMI Height: 5'5" Weight: 125lbs. 4.0oz. [id number]; 26.15 BMI Method:Stated General Appearance: Chronically ill, Mild Distress Eyes: Right Eye Normal Inspection, Right Eye PERRL HEENT: PERRL/EOMI, Normal ENT Inspection, Pharynx Normal, Moist Mucous Membranes Neck: Full Range of Motion, Normal Inspection, Non Tender Respiratory: Chest Non Tender, Lungs Clear, Normal Breath Sounds, No Accessory Muscle Use, No Respiratory Distress Cardiovascular: Regular Rate, Rhythm, No Edema, No Gallop, No JVD, No Murmur, Normal Peripheral Pulses Gastrointestinal: Normal Bowel Sounds, No Organomegaly, No Pulsatile Mass, Soft, Tenderness Back: Normal Inspection, No CVA Tenderness, No Vertebral Tenderness Extremity: Normal Capillary Refill, Normal Inspection, Normal Range of Motion, Non Tender, No Calf Tenderness, No Pedal Edema Neurologic/Psychiatric: Alert, Oriented x3, No Motor/Sensory Deficits, Depressed Affect Skin: Normal Color, Warm/Dry Lymphatic: No Adenopathy Results Results/Procedures Labs Laboratory Tests 11/02/20 14:15 11/02/20 19:50 11/03/20 00:15 11/03/20 03:35 Patient resulted labs reviewed. Assessment/Plan Admission Diagnosis Assessment: N/V severe 16 weeks Hyponatremia Hypokalemia Gallbladder sludge Plan: ICU Replace electrolytes Appreciate consultants Admission Status: Inpatient Order (span 2 midnights) Reason for Inpatient Admission: severe illness FLORECITA RAMOS DO Nov 02, 2020 18:01
--- NOTE | 2020-11-02 18:18 | Consultation-Cardiology ---
HPI-Cardiology Cardiology Consultation: Date of Consultation 11/02/20 Time Seen by a Provider: 18:05 Date of Admission Attending Physician Florecita Ramos DO Admitting Physician [facility] Consulting Physician PAVAN MONTERO MD, MA, FACP, FACC, [facility], CCDS HPI: Chief Complaint: Tachycardia Ms. Villavicencio is a 30 yr old female admitted to ICU 6 from the ED with tachycardia. She reports she is 16 weeks with her 4 . She states she has had nausea/vomiting which has been intractable throughout her entire . She reports she smoked marijuana today hoping it would help the nausea. She denies any CP or LE swelling. She states this morning she did become nauseated and vomited at which time she did feel weak and thinks she passed out hitting her head on a trash can. She states she came to when she hit her head. She states she continues to feel weak and shaky. Review of Systems-Cardiology Review of Systems Constitutional: No chills, No fever; lightheadedness, weight gain Eyes: No vision change Ears/Nose/Throat: No epistaxis, No recent hearing loss Respiratory: As described under HPI Cardiovascular: As described under HPI Gastrointestinal: As described under HPI Genitourinary: No dysuria, No hematuria Musculoskeletal: no symptoms reported Skin: No rash on exposed areas Psychiatric/Neurological: As described under HPI Hematologic: No bleeding abnormalities XND-Sgnrdd-Bcyqme Hx Patient Social History Smoking Status: Never a Smoker Have you traveled recently?: No Alcohol Use?: No Substance type: Marijuana Pt feels they are or have been: No Immunizations Up To Date Tetanus Booster (TDap): Unknown Past Medical History PMH As described under Assessment. Family Medical History Family Medical History: She reports her father and brother both had congenital heart disease (hole in their heart) requiring surgical repair. Family History: Congenital heart disease (PT'S FATHER) Family history: Diabetes mellitus (GRANDMOTHER) Allergies and Home Medications Allergies Coded Allergies: tramadol (Verified Allergy, Unknown, RASH, 04/27/16) Home Medications No Active Prescriptions or Reported Meds Patient Home Medication List Home Medication List Reviewed: Yes Physical Exam-Cardiology Physical Exam Vital Signs/I&O 11/02/20 11/02/20 11/02/20 11/02/20 14:09 17:29 17:34 17:40 Temp 36.2 Pulse 130 101 103 Resp 18 18 B/P (MAP) 115/87 (96) 129/83 Pulse Ox 97 97 97 O2 Delivery Room Air 11/02/20 17:50 B/P (MAP) O2 Delivery Room Air Capillary Refill : Less Than 3 Seconds Constitutional: AAO x 3, well-developed, well-nourished HEENT: PERRL, hearing is well preserved; No oral hygience is good Neck: No carotid bruit; carotid pulses are 2 + bilaterally Respiratory: No accessory muscle use, No respiratory distress; chest expansion is symmetric, chest is bilaterally symmetric Cardiovascular: regular rate-rhythm; No JVD; S1 and S2 Gastrointestinal: soft, audible bowel sounds Extremities: no lower extremity edema bilateral Neurologic/Psychiatric: grossly intact (moves all extremities) Skin: No rash on exposed areas, No ulcerations on exposed areas Data Review Labs Laboratory Tests 11/02/20 14:15: White Blood Count 26.1H, Red Blood Count 5.02, Hemoglobin 15.1, Hematocrit 44, Mean Corpuscular Volume 87, Mean Corpuscular Hemoglobin 30, Mean Corpuscular Hemoglobin Concent 35, Red Cell Distribution Width 14.5, Platelet Count 319, Mean Platelet Volume 12.7H, Immature Granulocyte % (Auto) 2, Neutrophils (%) (Auto) 86H, Lymphocytes (%) (Auto) 8L, Monocytes (%) (Auto) 4, Eosinophils (%) (Auto) 0, Basophils (%) (Auto) 0, Neutrophils # (Auto) 22.5H, Lymphocytes # (Auto) 2.0, Monocytes # (Auto) 1.1H, Eosinophils # (Auto) 0.0, Basophils # (Auto) 0.1, Immature Granulocyte # (Auto) 0.4H, Neutrophils % (Manual) 80, Lymphocytes % (Manual) 8, Monocytes % (Manual) 6, Eosinophils % (Manual) 0, Basophils % (Manual) 0, Band Neutrophils 6, Stomatocytes MODERATE, Sodium Level 124*L, Potassium Level 2.2*L, Chloride Level 63L, Carbon Dioxide Level 36H, Anion Gap 25H, Blood Urea Nitrogen 22H, Creatinine 1.67H, Estimat Glomerular Filtration Rate 36, BUN/Creatinine Ratio 13, Glucose Level 155H, Calcium Level 10.8H, Corrected Calcium 10.6H, Magnesium Level 1.9, Total Bilirubin 1.8H, Aspartate Amino Transf (AST/SGOT) 165H, Alanine Aminotransferase (ALT/SGPT) 278H , Alkaline Phosphatase 80, Total Protein 8.2, Albumin 4.3, Human Chorionic Gonadotropin, Quant [id number] 11/02/20 14:55: Urine Color YELLOW, Urine Clarity CLEAR, Urine pH 6.0, Urine Specific Newton >=1.030, Urine Protein 2+H, Urine Glucose (UA) NEGATIVE, Urine Ketones 2+H, Urine Nitrite NEGATIVE, Urine Bilirubin 2+H, Urine Urobilinogen 2.0, Urine Leukocyte Esterase NEGATIVE, Urine RBC (Auto) TRACE-I, Urine RBC NONE, Urine WBC 5-10H, Urine Squamous Epithelial Cells 5-10, Urine Crystals NONE, Urine Bacteria MODERATEH, Urine Casts PRESENT, Urine Hyaline Casts 10-25H, Urine Mucus SMALLH, Urine Culture Indicated YES, Urine Opiates Screen NEGATIVE, Urine Oxycodone Screen NEGATIVE, Urine Methadone Screen NEGATIVE, Urine Propoxyphene Screen NEGATIVE, Urine Barbiturates Screen NEGATIVE, Ur Tricyclic Antidepressants Screen NEGATIVE, Urine Phencyclidine Screen NEGATIVE, Urine Amphetamines Screen NEGATIVE, Urine Methamphetamines Screen NEGATIVE, Urine Benzodiazepines Screen NEGATIVE, Urine Cocaine Screen NEGATIVE, Urine Cannabinoids Screen POSITIVEH A/P-Cardiology Assessment/Admission Diagnosis Palpitations secondary to sinus tachycardia likely d/t electrolyte abnormalities 16 weeks Hyperemesis gravidarum Electrolyte abnormalities likely secondary to hyperemesis Marijuana use Discussion and Recomendations Sinus tachycardia likely secondary to vol depletion and electrolyte abnormalities d/t hyperemsis gravidarum Acute renal insufficiency likely d/t vol depletion Replace electrolytes IVF to replace volume Management of with OB services Echocardiogram to eval structure and function Further recs will be based on her hospital course We would like to thank medical services for this consult PAVAN MONTERO MD FACP FAC CCDS Nov 02, 2020 18:18
[2020-11-02] MEDS ORDERED: CATHETER FLUSH 10 ML SYR IV PRN (18:30)
[2020-11-02] MEDS: PROMETHAZINE INJ 25 MG/ML (PHENERGAN) AMP IV PRN (19:43)
[2020-11-02] MEDS: metroNIDAZOLE 500 MG/100 ML IVPB (PRE-MIX) IV SCH (19:44)
[2020-11-02] MEDS: POTASSIUM CL 10 MEQ/50 ML IVPB (PRE-MIX) IV SCH ×3 (19:44→21:40)
--- NOTE | 2020-11-02 19:54 | CONSULTATION REPORT ---
DATE OF SERVICE: DATE OF ADMISSION: 11/02/2020. ATTENDING PATENT LAWYER: . ADMITTING PHYSICIAN: Dr. Ramos. HISTORY OF PRESENT ILLNESS: The patient is a 30-year-old female who was admitted to the ICU due to tachycardia. She is a G4, P3 at approximately 6 weeks' gestation. She has been having issues with nausea and vomiting pretty much throughout the entirety of her . She does report smoking marijuana on an intermittent basis. She states that with the nausea and vomiting, she did feel weak and also did feel palpitations. She was brought to the Emergency Department where she was found to be significantly hypokalemic and dehydrated. She also was having some bigeminy on the cardiac rhythm. An ultrasound was also performed, which did show some biliary sludge; however, no gallbladder wall thickening. She does have an elevation of white count as well as a hemoglobin, likely consistent with dehydration. She also does have elevated total bilirubin of 1.8 again likely due to her dehydration. She was also found to have a urinary tract infection as well. Since being admitted and started on IV fluids, she has felt better. PAST MEDICAL HISTORY: None known. PAST SURGICAL HISTORY: None. ALLERGIES: TRAMADOL. MEDICATIONS: None. SOCIAL HISTORY: Negative cigarette smoke, but does use marijuana socially. No alcohol. VITAL SIGNS: Temperature 36.2, blood pressure 132/89, pulse 98, respirations 24, pulse ox 97% on room air. REVIEW OF SYSTEMS: Well-nourished female currently, in no acute distress. She is not experiencing any shortness of breath or difficulty in breathing. No chest pain, palpitations, diaphoresis. Intermittent episodes of nausea and vomiting, which she states has been ongoing throughout this . She does not report any hematemesis, no coffee ground emesis. She states her bowel movements are normal. No red blood per rectum, no dark tarry stools. No fever, chills, no recent inadvertent weight loss. All other review of systems negative. PHYSICAL EXAMINATION: CHEST: Clear. Good breath sounds bilaterally. HEART: Regular, no murmurs. EXTREMITIES: No lower extremity edema, negative Homans sign. HEENT: No scleral icterus. NECK: No cervical lymphadenopathy. ABDOMEN: Gravid. There is some mild discomfort in the epigastric region as well as a right upper abdominal quadrant; however, not severe. There are no peritoneal signs. No hernias. SKIN: Warm, dry. LABORATORY DATA: WBC 26.1, hemoglobin 15.1, hematocrit 44, platelets 319. Potassium is 2.2. Sodium 124. BUN 22, creatinine 1.67, total bilirubin 1.8. Urine positive for moderate bacteria as well as ketones. ASSESSMENT AND PLAN: A 30-year-old female who is a G4, P3 at 16 weeks' gestation with hyperemesis gravidarum causing volume depletion and hypokalemic hypochloremic metabolic acidosis. She will need IV hydration as well as PPI acid survey questionnaire designer as well as antinausea medications as necessary. She was found to have some sludge in the gallbladder; however, we do not feel that this is the main cause of her nausea and vomiting. The recommendation for symptomatic gallbladder disease is to wait until before proceeding with laparoscopic cholecystectomy; however, if this becomes the primary etiology of her hyperemesis syndrome, she may need to have her gallbladder removed; however, this is last resort. We would ideally also wait until she was in the beginning of her third trimester as well. For now, we will recommend conservative medical management with IV hydration, PPI acid reducers and antinausea medications and cessation of cannabinoid use. Job ID: [id number] DocumentID: [id number] Dictated Date: 11/02/2020 19:18:47 Culinary Arts Instructor Date: 11/02/2020 19:53:45 Dictated By: AREN DODSON MD [facility]
[2020-11-02 20:08] LABS: CHLORIDE 77 MMOL/L (98-107); SODIUM 127 MMOL/L (135-145)
[2020-11-02 20:09] LABS: CALCIUM 8.6 MG/DL (8.5-10.1); GLUCOSE 107 MG/DL (70-105)
[2020-11-02 20:11] LABS: CARBON DIOXIDE 31 MMOL/L (21-32)
[2020-11-02 20:13] LABS: CREATININE SERUM 0.86 MG/DL (0.60-1.30); GFR ESTIMATED > 60
[2020-11-02 20:14] LABS: BUN/CREATININE RATIO 17
[2020-11-02 20:16] LABS: POTASSIUM 2.1 MMOL/L (3.6-5.0)
[2020-11-02] MEDS ORDERED: PROCHLORPERAZINE 10 MG/2ML INJ (COMPAZINE) IV PRN (20:30)
--- NOTE | 2020-11-02 20:33 | Consultation ---
History of Present Illness History of Present Illness Patient Consulted On(natalie/time) 11/02/20 20:27 Date Seen by Provider: Nov 02, 2020 Time Seen by Provider: 20:29 Reason for Visit: Severe nausea, vomitting, and dehydration History of Present Illness This 30 yo female is 16 week and admitted by medical service due to severe hypokalemia/natremia and dehydration, secondary to HEG. She was given zofran at home, but apparently was still vomiting despite this and not able to drink or eat anything. She came in today to ER found to be extremely dehydrated and confused. Allergies and Home Medications Allergies Coded Allergies: tramadol (Verified Allergy, Unknown, RASH, 04/27/16) Home Medications No Active Prescriptions or Reported Meds Patient Home Medication List Home Medication List Reviewed: Yes Past Kayfvol-Cghvgj-Eirbma Hx Patient Social History Alcohol Use: Denies Use Smoking Status: Never a Smoker Recent Infectious Disease Expo: No Recent Hopitalizations: No Have you traveled recently?: No Substance type: Marijuana Alcohol Use?: No Immunizations Up To Date Tetanus Booster (TDap): Unknown Seasonal Allergies Seasonal Allergies: No Past Medical History Surgeries: No Respiratory: No Cardiac: No Neurological: No Reproductive Disorders: No Female Reproductive Disorders: Denies Sexually Transmitted Disease: No HIV/AIDS: No Gastrointestinal: No Musculoskeletal: No Endocrine: No Cancer: No Psychosocial: No Integumentary: No Blood Disorders: No Adverse Reaction/Blood Tranf: No Family Medical History Congenital heart disease (PT'S FATHER) Family history: Diabetes mellitus (GRANDMOTHER) Review of Systems-General Constitutional: see HPI EENTM: see HPI Respiratory: see HPI Cardiovascular: see HPI Gastrointestinal: see HPI Genitourinary: see HPI : Yes Expected Date of Delivery: Apr 14, 2021 Musculoskeletal: see HPI Skin: see HPI Psychiatric/Neurological: See HPI All Other Systems Reviewed Negative Unless Noted: Yes Physical Exam-General Problems Physical Exam Vital Signs Vital Signs - First Documented 11/02/20 11/02/20 14:09 17:40 Temp 36.2 Pulse 130 Resp 18 B/P (MAP) 115/87 (96) Pulse Ox 97 O2 Delivery Room Air Capillary Refill : Less Than 3 Seconds General Appearance: mild distress Eyes: Bilateral Eye Normal Inspection HEENT: PERRL/EOMI Neck: non-tender Respiratory: no respiratory distress Back: normal inspection, no CVA tenderness Extremities: normal range of motion Neurologic/Psychiatric: other (slightly confused and disoriented, but did recognize my voice once started to speak with the patient) Comments FHR 155 obtained bedside Assessment/Plan Assessment/Plan Admission Diagnosis/Plan Diagnosis: 30 yo @ 16.5 weeks EDC of 04/14/2021 HEG Severe dehydration involving hyponatremia, and hypokalemia Leukocytosis Marijuana use in P: Will continue q shift Heart tones Management of electrolytes per IM Will follow recommendations Available for further advice as needed, please call. At this point any antiemetic should and can be given to help, but if there are questions please call me. Admission Status: Inpatient Order (span 2 midnights) Reason for Inpatient Admission: see diagnosis SEVERODONTA S DO Nov 02, 2020 20:32
[2020-11-02] MEDS ORDERED: KCL 20 MEQ TAB (K-DUR) PO ONE ×2 (20:58→21:00)
[2020-11-02] MEDS ORDERED: PROCHLORPERAZINE 10 MG/2ML INJ (COMPAZINE) ONE (21:08)
[2020-11-02] MEDS: PROCHLORPERAZINE 10 MG/2ML INJ (COMPAZINE) IV PRN (21:40)
[2020-11-03] MEDS: POTASSIUM CL 10MEQ/50ML IVPB 50 ML IV SCH ×3 (00:45→03:08)
[2020-11-03] MEDS: NS IV 1000 ML 1,000 ML IV SCH ×4 (00:45→21:21)
[2020-11-03 00:46] LABS: CHLORIDE 82 MMOL/L (98-107); SODIUM 128 MMOL/L (135-145)
[2020-11-03 00:48] LABS: CALCIUM 8.2 MG/DL (8.5-10.1); GLUCOSE 99 MG/DL (70-105)
[2020-11-03 00:49] LABS: CARBON DIOXIDE 29 MMOL/L (21-32)
[2020-11-03 00:52] LABS: CREATININE SERUM 0.76 MG/DL (0.60-1.30); GFR ESTIMATED > 60
[2020-11-03 00:53] LABS: BUN/CREATININE RATIO 16
[2020-11-03 01:19] LABS: POTASSIUM 2.4 MMOL/L (3.6-5.0)
[2020-11-03] MEDS: metroNIDAZOLE 500 MG/100 ML IVPB (PRE-MIX) IV SCH ×3 (03:08→21:01)
[2020-11-03 04:17] LABS: ALBUMIN 2.9 GM/DL (3.2-4.5); CHLORIDE 87 MMOL/L (98-107); POTASSIUM 2.8 MMOL/L (3.6-5.0)
[2020-11-03 04:18] LABS: SODIUM 128 MMOL/L (135-145)
[2020-11-03 04:19] LABS: CALCIUM 7.9 MG/DL (8.5-10.1)
[2020-11-03 04:20] LABS: GLUCOSE 98 MG/DL (70-105); TOTAL PROTEIN 5.2 GM/DL (6.4-8.2)
[2020-11-03 04:21] LABS: CARBON DIOXIDE 27 MMOL/L (21-32)
[2020-11-03 04:22] LABS: BILIRUBIN,TOTAL 1.3 MG/DL (0.1-1.0)
--- NOTE | 2020-11-03 04:22 | Pulmonary Consultation ---
History of Present Illness History of Present Illness Date Seen by Provider: Nov 03, 2020 Time Seen by Provider: 04:17 Date of Admission Reason for Visit: Severe nausea, vomitting, and dehydration Allergies and Home Medications Allergies Coded Allergies: tramadol (Verified Allergy, Unknown, RASH, 04/27/16) Home Medications No Active Prescriptions or Reported Meds Past Btkbznb-Lmpcuc-Idneye Hx Patient Social History Alcohol Use: Denies Use Smoking Status: Never a Smoker Recent Infectious Disease Expo: No Recent Hopitalizations: No Have you traveled recently?: No Substance type: Marijuana Alcohol Use?: No Immunizations Up To Date Tetanus Booster (TDap): Unknown Seasonal Allergies Seasonal Allergies: No Past Medical History Surgeries: No Respiratory: No Cardiac: No Neurological: No Expected Date of Delivery: Apr 14, 2021 Reproductive Disorders: No Female Reproductive Disorders: Denies Sexually Transmitted Disease: No HIV/AIDS: No Gastrointestinal: No Musculoskeletal: No Endocrine: No Cancer: No Psychosocial: No Integumentary: No Blood Disorders: No Adverse Reaction/Blood Tranf: No Family Medical History Congenital heart disease (PT'S FATHER) Family history: Diabetes mellitus (GRANDMOTHER) Review of Systems Time Seen by Provider: 04:21 Sepsis Event Evaluation Height, Weight, BMI Height: 5'5" Weight: 125lbs. 4.0oz. [id number]; 26.15 BMI Method:Stated Exam Exam Vital Signs Date Time Temp Pulse Resp B/P (MAP) Pulse Ox O2 Delivery O2 Flow Rate FiO2 11/03/20 02:00 102 20 135/68 (90) 95 Room Air 11/03/20 01:00 95 23 121/80 (94) 98 Room Air 11/03/20 01:00 102 11/03/20 00:00 101 29 134/70 (91) 97 Room Air 11/02/20 23:59 97 Room Air 11/02/20 23:00 121 20 126/71 (89) 97 Room Air 11/02/20 22:00 98 96 Room Air 11/02/20 21:00 98 134/81 (98) 96 Room Air 11/02/20 20:00 97 Room Air 11/02/20 20:00 102 130/78 (95) 97 Room Air 11/02/20 19:54 36.8 11/02/20 19:00 100 11/02/20 19:00 95 24 138/84 (102) 97 Room Air 11/02/20 18:00 98 24 132/89 (103) 97 Room Air 11/02/20 17:50 Room Air 11/02/20 17:40 97 Room Air 11/02/20 17:34 103 11/02/20 17:29 101 18 129/83 97 11/02/20 14:09 36.2 130 18 115/87 (96) 97 I & O 11/03/20 07:00 Intake Total 550 ml Balance 550 ml Height & Weight Height: 5'5" Weight: 125lbs. 4.0oz. 56.189209xn; 26.15 BMI Method:Stated General Appearance: No Apparent Distress, WD/WN HEENT: PERRL/EOMI, Normal ENT Inspection, Pharynx Normal Neck: Full Range of Motion, Normal Inspection, Non Tender, Supple Respiratory: Chest Non Tender, Lungs Clear, Normal Breath Sounds, No Accessory Muscle Use, No Respiratory Distress Cardiovascular: Regular Rate, Rhythm Capillary Refill: Less Than 3 Seconds Gastrointestinal: normal bowel sounds, soft Extremity: Normal Capillary Refill, Normal Inspection, No Pedal Edema Neurologic/Psychiatric: Alert, Oriented x3 Skin: Normal Color, Warm/Dry Lymphatic: No Adenopathy Results Lab Laboratory Tests 11/02/20 14:15 11/02/20 19:50 11/03/20 00:15 Assessment/Plan Assessment/Plan severely decrease K+ -Replace -Repeat UTI -Continue Abx @ 16.[address] [facility] -[facility] SUZANNE CANTOR DO Nov 03, 2020 04:22
[2020-11-03 04:23] LABS: ALKALINE PHOSPHATASE 53 U/L (40-136); PHOSPHORUS 2.4 MG/DL (2.3-4.7)
[2020-11-03 04:24] LABS: GFR ESTIMATED > 60
[2020-11-03 04:25] LABS: BUN/CREATININE RATIO 16
[2020-11-03 04:26] LABS: ALANINE AMINOTRANSFERASE 262 U/L (0-55); MAGNESIUM 1.9 MG/DL (1.6-2.4)
[2020-11-03] MEDS ORDERED: ACETAMINOPHEN 325 MG TABLET ONE (04:49)
[2020-11-03] MEDS: ACETAMINOPHEN 325 MG TABLET PO PRN (05:01)
[2020-11-03] MEDS ORDERED: KCL 20 MEQ TAB (K-DUR) PO SCH (06:00)
[2020-11-03] MEDS ORDERED: POTASSIUM CL 10MEQ/50ML IVPB 50 ML IV SCH (06:00)
[2020-11-03] MEDS ORDERED: MAGNESIUM 1 GM/100 ML IVPB 100 ML IV SCH (06:00)
[2020-11-03] MEDS ORDERED: KCL 20 MEQ TAB (K-DUR) PO ONE ×3 (08:00→12:00)
[2020-11-03 08:14] LABS: BASOPHILS % (AUTO) 0 % (0-10); EOSINOPHILS % (AUTO) 0 % (0-10); HEMATOCRIT 31 % (35-52); HEMOGLOBIN 10.4 g/dL (11.5-16.0); LYMPHOCYTES # (AUTO) 1.6 10^3/uL (1.0-4.0); LYMPHOCYTES % (AUTO) 15 % (12-44); MEAN CORPUSCULAR HEMOGLOBIN 30 pg (25-34); MEAN CORPUSCULAR HGB CONC 33 g/dL (32-36); MEAN CORPUSCULAR VOLUME 92 fL (80-99); MEAN PLATELET VOLUME 12.2 fL (9.0-12.2); MONOCYTES # (AUTO) 0.6 10^3/uL (0.0-1.0); MONOCYTES % (AUTO) 5 % (0-12); NEUTROPHILS # (AUTO) 8.8 10^3/uL (1.8-7.8); NEUTROPHILS % (AUTO) 79 % (42-75); PLATELET COUNT 163 10^3/uL (130-400); WHITE BLOOD COUNT 11.2 10^3/uL (4.3-11.0)
[2020-11-03 08:30] LABS: BUN/CREATININE RATIO 17; CALCIUM 7.9 MG/DL (8.5-10.1); CARBON DIOXIDE 27 MMOL/L (21-32); CHLORIDE 91 MMOL/L (98-107); CREATININE SERUM 0.64 MG/DL (0.60-1.30); GFR ESTIMATED > 60; GLUCOSE 110 MG/DL (70-105); POTASSIUM 2.7 MMOL/L (3.6-5.0); SODIUM 129 MMOL/L (135-145)
[2020-11-03] MEDS ORDERED: PREN-8 PO (08:57)
[2020-11-03] MEDS ORDERED: ONDA4TAB11 PO (08:57)
--- NOTE | 2020-11-03 09:28 | Progress Note - Cardiology ---
Cardiology SOAP Progress Note Subjective: Lying in bed Continues to c/o nausea No c/o CP, SOB or palpitations Objective: I&O/Vital Signs 11/05/20 11/06/20 11/06/20 23:44 08:00 08:24 Temp 36.8 36.9 Pulse 92 88 Resp 18 16 B/P (MAP) 129/73 (91) 131/81 (98) Pulse Ox 99 99 O2 Delivery Room Air Room Air Room Air 11/06/20 00:00 Intake Total 2784 ml Balance 2784 ml Weight (Pounds): 125 Weight (Ounces): 4.0 Weight (Calculated Kilograms): 56.538345 Constitutional: AAO x 3, well-developed, well-nourished Respiratory: No accessory muscle use, No respiratory distress; chest expansion is symmetric, chest is bilaterally symmetric Cardiovascular: regular rate-rhythm; No JVD; S1 and S2 Gastrointestional: soft, audible bowel sounds Extremities: no lower extremity edema bilateral Neurologic/Psychiatric: grossly intact (moves all extremities) Skin: No rash on exposed areas, No ulcerations on exposed areas Results/Procedures: Labs Laboratory Tests 11/06/20 05:05: White Blood Count 11.6H, Red Blood Count 3.49L, Hemoglobin 10.7L, Hematocrit 33L , Mean Corpuscular Volume 95, Mean Corpuscular Hemoglobin 31, Mean Corpuscular Hemoglobin Concent 32, Red Cell Distribution Width 15.9H, Platelet Count 165, Mean Platelet Volume 12.6H, Immature Granulocyte % (Auto) 2, Neutrophils (%) (Auto) 80H, Lymphocytes (%) (Auto) 14, Monocytes (%) (Auto) 3, Eosinophils (%) (Auto) 1, Basophils (%) (Auto) 0, Neutrophils # (Auto) 9.2H, Lymphocytes # (Auto) 1.7, Monocytes # (Auto) 0.3, Eosinophils # (Auto) 0.1, Basophils # (Auto) 0.0, Immature Granulocyte # (Auto) 0.2H, Sodium Level 135, Potassium Level 3.8, Chloride Level 107, Carbon Dioxide Level 19L, Anion Gap 9, Blood Urea Nitrogen 7, Creatinine 0.47L, Estimat Glomerular Filtration Rate > 60, BUN/Creatinine R atio 15, Glucose Level 97, Calcium Level 8.4L, Corrected Calcium 9.4, Magnesium Level 1.3L, Total Bilirubin 0.2, Aspartate Amino Transf (AST/SGOT) 151H, Alanine Aminotransferase (ALT/SGPT) 202H, Alkaline Phosphatase 47, Total Protein 5.1L, Albumin 2.7L Microbiology 11/02/20 MRSA Screen - Final, Complete MRSA not isolated 11/02/20 Urine Culture - Preliminary, Resulted >=3 Gram Positive Isolates YEAST A/P: Assessment: Palpitations secondary to sinus tachycardia likely d/t electrolyte abnormalities 16 weeks Hyperemesis gravidarum Electrolyte abnormalities likely secondary to hyperemesis UTI Marijuana use Plan: Sinus tachycardia likely secondary to vol depletion and electrolyte abnormalities d/t hyperemsis gravidarum Acute renal insufficiency likely d/t vol depletion - improved Replace electrolytes IVF to replace volume Management of with OB services Echocardiogram to eval structure and function Management of UTI per medical services Advise cessation of marijuana REGGIE HERMOSILLO [facility] [place] Nov 03, 2020 09:28
[2020-11-03] MEDS: cefTRIAXone 1,000 MG/SWFI 10 ML IV PUSH IV SCH ×2 (09:56)
--- NOTE | 2020-11-03 10:54 | Progress Note ---
Standard Progress Note Progress Notes/Assess & Plan Date Seen by a Provider: Nov 03, 2020 Time Seen by a Provider: 10:00 Progress/Assessment & Plan doing better today. HD stable. labs all normalizing. long hx early gestational hyperemesis gravidarum. advance to low fat diet. ambulate. anti-nausea PRN. reglar floor. AREN DODSON MD Nov 03, 2020 10:54
[2020-11-03 12:28] LABS: BUN/CREATININE RATIO 13; CALCIUM 7.6 MG/DL (8.5-10.1); CARBON DIOXIDE 27 MMOL/L (21-32); CHLORIDE 94 MMOL/L (98-107); CREATININE SERUM 0.62 MG/DL (0.60-1.30); GFR ESTIMATED > 60; GLUCOSE 104 MG/DL (70-105); SODIUM 130 MMOL/L (135-145)
--- NOTE | 2020-11-03 12:40 | Progress Note - Hospitalist ---
TIMBO MENARD MED STUDENT 11/03/20 1240: Subjective HPI/CC On Admission Date Seen by Provider: Nov 03, 2020 Time Seen by Provider: 10:10 CC: N/V with electrolyte abnormalities and 16 weeks HPI: This is a 30yoWF who presents to the ER with severe N/V and abdominal pain who was assessed to be 16 weeks with severe electrolyte abnormalities. Severe hyponatremia and hypokalemia with gallbladder sludge on imaging placed her at high risk for mortality for patient and fetus so she was placed in ICU with multiple consultants. Currently she is having mucous in her throat. Subjective/Events-last exam Pts steadly improving today, electrolytes rising. Pt states nausea is improved today, trying some liquids when I walked in. No vomiting today. Extensive hx of hyperemesis gravidarum. VS stable today. Review of Systems General: No Chills, No Night Sweats Pulmonary: No Dyspnea, No Cough, No Pleuritic Chest Pain Cardiovascular: No: Chest Pain, Palpitations Gastrointestinal: Nausea, Abdominal Pain; No: Vomiting Objective Exam Vital Signs Vital Signs Date Time Temp Pulse Resp B/P (MAP) Pulse Ox O2 Delivery O2 Flow Rate FiO2 11/03/20 12:00 106 16 119/77 (91) 97 Room Air 11/03/20 11:38 36.6 Capillary Refill : Less Than 3 Seconds General Appearance: No Apparent Distress, WD/WN HEENT: Moist Mucous Membranes Neck: Full Range of Motion, Normal Inspection Respiratory: Chest Non Tender, Normal Breath Sounds, No Accessory Muscle Use, No Respiratory Distress Cardiovascular: Regular Rate, Rhythm, Normal Peripheral Pulses Gastrointestinal: Soft, Tenderness Rectal: Deferred Results/Procedures Lab Laboratory Tests 11/02/20 14:15 11/02/20 19:50 11/03/20 00:15 11/03/20 03:35 11/03/20 08:07 11/03/20 12:05 Patient resulted labs reviewed. Assessment/Plan Assessment and Plan Assess & Plan/Chief Complaint Hyperemesis gravidarum known hx. Hypochloremia, hypokalemia, and hyponatremia all improved today from admission. Metabolic alkalosis corrected today (27 from 36) magnesium stable. [facility]. continue IV KCL, Mg, and NS. Multifocal Button Inspector following. IV promethazine and proclorperazine Biliary slug found on 11/02 ultrasound. possible source of elevated total bilirubin and AST/ALTs surgery following - lap-choley discussed. Arrythemia borderline elevated QT prolongation in ER - zofran held. 2/2 electrolyte disturbances cardiology following echocardiogram performed this am. Leukocytosis 11.2 from 26.1 WBC yesterday. likely stress/reactive Pt covered with IV Rocephin and flagyl FLORECITA FISHER DO 11/04/20 0709: Subjective Subjective/Events-last exam Improved status Monitor electrolytes Move to 4th floor Review of Systems General: Fatigue Gastrointestinal: Nausea Objective Exam General Appearance: No Apparent Distress, WD/WN, Chronically ill Respiratory: Lungs Clear Cardiovascular: Regular Rate, Rhythm Neurologic/Psychiatric: Alert, Oriented x3 Assessment/Plan Assessment and Plan Assess & Plan/Chief Complaint Monitor fluid status Check potassium Supervisory-Addendum Brief Verification & Attestation Participated in pt care: history, MDM, physical Personally performed: exam, history, MDM, supervision of care Care discussed with: Medical Student Procedures: n/a Results interpretation: Verified all documentation Verification and Attestation of Medical Student E/M Service A medical student performed and documented this service in my presence. I reviewed and verified all information documented by the medical student and made modifications to such information, when appropriate. I personally performed the physical exam and medical decision making. Florecita Fisher, Nov 04, 2020,07:08 TIMBO MENARD MED STUDENT Nov 03, 2020 12:40 FLORECITA FISHER DO Nov 04, 2020 07:09
--- NOTE | 2020-11-03 12:41 | Progress Note - Cardiology ---
Cardiology SOAP Progress Note Subjective: Nausea still present No shortness of breath at rest Malaise is improving No cp or palp or syncope Objective: I&O/Vital Signs 11/03/20 11/03/20 11/03/20 11/03/20 01:00 01:00 02:00 03:00 Pulse 102 95 102 96 Resp 28 B/P (MAP) 121/80 (94) 135/68 (90) 124/70 (88) Pulse Ox 98 95 99 O2 Delivery Room Air Room Air Room Air 11/03/20 11/03/20 11/03/20 11/03/20 04:00 04:00 05:00 06:00 Pulse 97 97 101 Resp 38 B/P (MAP) 116/73 (87) 112/70 (84) 129/81 (97) Pulse Ox 98 97 98 95 O2 Delivery Room Air Room Air Room Air Room Air 11/03/20 11/03/20 11/03/20 11/03/20 07:00 07:00 08:00 08:00 Pulse 102 101 117 Resp 28 B/P (MAP) 120/67 (84) Pulse Ox 96 95 97 O2 Delivery Room Air Room Air Room Air 11/03/20 11/03/20 11/03/20 11/03/20 08:13 09:00 10:00 11:00 Temp 36.9 Pulse 96 113 109 Resp 37 23 B/P (MAP) 108/85 (93) 114/73 (87) 118/66 (83) Pulse Ox 96 96 100 O2 Delivery Room Air Room Air Room Air 11/03/20 11/03/20 11:38 12:00 Temp 36.6 Pulse 106 Resp 16 B/P (MAP) 119/77 (91) Pulse Ox 97 O2 Delivery Room Air 11/03/20 00:00 Intake Total 450 ml Balance 450 ml Weight (Pounds): 125 Weight (Ounces): 4.0 Weight (Calculated Kilograms): 56.541767 Constitutional: AAO x 3, well-developed, well-nourished Respiratory: No accessory muscle use, No respiratory distress; chest expansion is symmetric, chest is bilaterally symmetric Cardiovascular: regular rate-rhythm; No JVD; S1 and S2 Gastrointestional: soft, audible bowel sounds Extremities: no lower extremity edema bilateral Neurologic/Psychiatric: grossly intact (moves all extremities) Skin: No rash on exposed areas, No ulcerations on exposed areas Results/Procedures: Labs Laboratory Tests 11/02/20 14:15: White Blood Count 26.1H, Red Blood Count 5.02, Hemoglobin 15.1, Hematocrit 44, Mean Corpuscular Volume 87, Mean Corpuscular Hemoglobin 30, Mean Corpuscular Hem oglobin Concent 35, Red Cell Distribution Width 14.5, Platelet Count 319, Mean Platelet Volume 12.7H, Immature Granulocyte % (Auto) 2, Neutrophils (%) (Auto) 86H, Lymphocytes (%) (Auto) 8L, Monocytes (%) (Auto) 4, Eosinophils (%) (Auto) 0, Basophils (%) (Auto) 0, Neutrophils # (Auto) 22.5H, Lymphocytes # (Auto) 2.0, Monocytes # (Auto) 1.1H, Eosinophils # (Auto) 0.0, Basophils # (Auto) 0.1, Immature Granulocyte # (Auto) 0.4H, Neutrophils % (Manual) 80, Lymphocytes % (Manual) 8, Monocytes % (Manual) 6, Eosinophils % (Manual) 0, Basophils % (Manual) 0, Band Neutrophils 6, Stomatocytes MODERATE, Sodium Level 124*L, Potassium Level 2.2*L, Chloride Level 63L, Carbon Dioxide Level 36H, Anion Gap 25H, Blood Urea Nitrogen 22H, Creatinine 1.67H, Estimat Glomerular Filtration Rate 36, BUN/Creatinine Ratio 13, Glucose Level 155H, Calcium Level 10.8H, Corrected Calcium 10.6H, Magnesium Level 1.9, Total Bilirubin 1.8H, Aspartate Amino Transf (AST/SGOT) 165H, Alanine Aminotransferase (ALT/SGPT) 278H, Alkaline Phosphatase 80, Total Protein 8.2, Albumin 4.3, Human Chorionic Gonadotropin, Qu ant [id number] 11/02/20 14:55: Urine Color YELLOW, Urine Clarity CLEAR, Urine pH 6.0, Urine Specific [place] >=1.030, Urine Protein 2+H, Urine Glucose (UA) NEGATIVE, Urine Ketones 2+H, Urine Nitrite NEGATIVE, Urine Bilirubin 2+H, Urine Urobilinogen 2.0, Urine Leukocyte Esterase NEGATIVE, Urine RBC (Auto) TRACE-I, Urine RBC NONE, Urine WBC 5-10H, Urine Squamous Epithelial Cells 5-10, Urine Crystals NONE, Urine Bacteria MODERATEH, Urine Casts PRESENT, Urine Hyaline Casts 10-25H, Urine Mucus SMALLH, Urine Culture Indicated YES, Urine Opiates Screen NEGATIVE, Urine Oxycodone Screen NEGATIVE, Urine Methadone Screen NEGATIVE, Urine Propoxyphene Screen NEGATIVE, Urine Barbiturates Screen NEGATIVE, Ur Tricyclic Antidepressants Screen NEGATIVE, Urine Phencyclidine Screen NEGATIVE, Urine Amphetamines Screen NEGATIVE, Urine Methamphetamines Screen NEGATIVE, Urine Benzodiazepines Screen NEGATIVE, Urine Cocaine Screen NEGATIVE, Urine Cannabinoids Screen POSITIVEH 11/02/20 19:50: Sodium Level 127L, Potassium Level 2.1*L, Chloride Level 77#L, Carbon Dioxide Level 31, Anion Gap 19H, Blood Urea Nitrogen 15, Creatinine 0.86, Estimat Glomerular Filtration Rate > 60, BUN/Creatinine Ratio 17, Glucose Level 107H, Calcium Level 8.6 11/03/20 00:15: Sodium Level 128L, Potassium Level 2.4*L, Chloride Level 82L, Carbon Dioxide Level 29, Anion Gap 17H, Blood Urea Nitrogen 12, Creatinine 0.76, Estimat Glomerular Filtration Rate > 60, BUN/Creatinine Ratio 16, Glucose Level 99, Calcium Level 8.2L 11/03/20 03:35: Sodium Level 128L, Potassium Level 2.8L, Chloride Level 87L, Carbon Dioxide Level 27, Anion Gap 14, Blood Urea Nitrogen 11, Creatinine 0.70, Estimat Glomerular Filtration Rate > 60, BUN/Creatinine Ratio 16, Glucose Level 98, Calcium Level 7.9L, Corrected Calcium 8.8, Phosphorus Level 2.4, Magnesium Level 1.9, Total Bilirubin 1.3H, Aspartate Amino Transf (AST/SGOT) 177H, Alanine Aminotransferase (ALT/SGPT) 262H, Alkaline Phosphatase 53, Total Protein 5.2L, Albumin 2.9L 11/03/20 08:07: Sodium Level 129L, Potassium Level 2.7L, Chloride Level 91L, Carbon Dioxide Level 27, Anion Gap 11, Blood Urea Nitrogen 11, Creatinine 0.64, Estimat Glomerular Filtration Rate > 60, BUN/Creatinine Ratio 17, Glucose Level 110H, Calcium Level 7.9L, White Blood Count 11.2H, Red Blood Count 3.42L, Hemoglobin 10.4#L, Hematocrit 31L, Mean Corpuscular Volume 92, Mean Corpuscular Hemoglobin 30, Mean Corpuscular Hemoglobin Concent 33, Red Cell Distribution Width 15.0H, Platelet Count 163, Mean Platelet Volume 12.2, Immature Granulocyte % (Auto) 1, Neutrophils (%) (Auto) 79H, Lymphocytes (%) (Auto) 15, Monocytes (%) (Auto) 5, Eosinophils (%) (Auto) 0, Basophils (%) (Auto) 0, Neutrophils # (Auto) 8.8H, Lymphocytes # (Auto) 1.6, Monocytes # (Auto) 0.6, Eosinophils # (Auto) 0.0, Basophils # (Auto) 0.0, Immature Granulocyte # (Auto) 0.2H 11/03/20 12:05: Sodium Level 130L, Potassium Level 3.0L, Chloride Level 94L, Carbon Dioxide Level 27, Anion Gap 9, Blood Urea Nitrogen 8, Creatinine 0.62, Estimat Glomerular Filtration Rate > 60, BUN/Creatinine Ratio 13, Glucose Level 104, Calcium Level 7.6L Microbiology 11/02/20 Urine Culture - Preliminary, Resulted Gram Pos Mixed Bacterial Annia YEAST Laboratory Tests 11/02/20 14:15 11/02/20 19:50 11/03/20 00:15 11/03/20 03:35 11/03/20 08:07 11/03/20 12:05 A/P: Assessment: Palpitations secondary to sinus tachycardia likely d/t electrolyte abnormalities and volume depletion 16 weeks Hyperemesis gravidarum Electrolyte abnormalities likely secondary to hyperemesis UTI Marijuana use Plan: * Replace electrolytes * IVF to replace volume * Management of by OB services * Echocardiogram to eval structure and function * Management of UTI by Medical services * Advise cessation of marijuana PAVAN MONTERO MD FACP FAC CCDS Nov 03, 2020 12:41
[2020-11-03] MEDS: PROCHLORPERAZINE 10 MG/2ML INJ (COMPAZINE) IV PRN ×2 (13:46→21:05)
[2020-11-03] MEDS ORDERED: PROCHLORPERAZINE 25 MG (COMPAZINE) SUPP PR PRN ×2 (21:00)
[2020-11-03] MEDS ORDERED: PROMETHAZINE INJ 25 MG/ML (PHENERGAN) AMP IM PRN (21:00)
[2020-11-04] MEDS: ACETAMINOPHEN 325 MG TABLET PO PRN (00:13)
[2020-11-04] MEDS: PROCHLORPERAZINE 10 MG/2ML INJ (COMPAZINE) IV PRN ×2 (03:19→07:39)
[2020-11-04] MEDS: metroNIDAZOLE 500 MG/100 ML IVPB (PRE-MIX) IV SCH ×3 (03:19→18:12)
[2020-11-04] MEDS: NS IV 1000 ML 1,000 ML IV SCH ×3 (03:20→17:15)
[2020-11-04 05:12] LABS: BASOPHILS % (AUTO) 0 % (0-10); EOSINOPHILS # (AUTO) 0.1 10^3/uL (0.0-0.3); EOSINOPHILS % (AUTO) 1 % (0-10); HEMATOCRIT 33 % (35-52); HEMOGLOBIN 10.4 g/dL (11.5-16.0); LYMPHOCYTES # (AUTO) 1.9 10^3/uL (1.0-4.0); LYMPHOCYTES % (AUTO) 19 % (12-44); MEAN CORPUSCULAR HEMOGLOBIN 31 pg (25-34); MEAN CORPUSCULAR HGB CONC 32 g/dL (32-36); MEAN CORPUSCULAR VOLUME 95 fL (80-99); MEAN PLATELET VOLUME 12.5 fL (9.0-12.2); MONOCYTES # (AUTO) 0.4 10^3/uL (0.0-1.0); MONOCYTES % (AUTO) 4 % (0-12); NEUTROPHILS # (AUTO) 7.2 10^3/uL (1.8-7.8); NEUTROPHILS % (AUTO) 73 % (42-75); PLATELET COUNT 150 10^3/uL (130-400); WHITE BLOOD COUNT 9.7 10^3/uL (4.3-11.0)
[2020-11-04 05:34] LABS: ALANINE AMINOTRANSFERASE 206 U/L (0-55); ALBUMIN 2.8 GM/DL (3.2-4.5); ALKALINE PHOSPHATASE 47 U/L (40-136); BILIRUBIN,TOTAL 0.4 MG/DL (0.1-1.0); BUN/CREATININE RATIO 7; CALCIUM 7.7 MG/DL (8.5-10.1); CARBON DIOXIDE 21 MMOL/L (21-32); CHLORIDE 101 MMOL/L (98-107); CREATININE SERUM 0.56 MG/DL (0.60-1.30); GFR ESTIMATED > 60; GLUCOSE 100 MG/DL (70-105); POTASSIUM 2.8 MMOL/L (3.6-5.0); SODIUM 135 MMOL/L (135-145)
[2020-11-04] MEDS ORDERED: MAGNESIUM 1 GM/100 ML IVPB 100 ML IV ONE (07:15)
[2020-11-04] MEDS ORDERED: WATER (STERILE) FOR INJECTION 10 ML ONE (07:55)
[2020-11-04] MEDS ORDERED: cefTRIAXone 1,000 MG IV (ROCEPHIN) VIAL ONE (07:55)
[2020-11-04] MEDS: cefTRIAXone 1,000 MG/SWFI 10 ML IV PUSH IV SCH ×2 (08:19)
[2020-11-04] MEDS: POTASSIUM CL 10MEQ/50ML IVPB 50 ML IV SCH ×8 (08:19→15:25)
--- NOTE | 2020-11-04 11:18 | Progress Note - Surgery ---
JAMILAH PRATT MED STUDENT 11/04/20 1118: Subjective Date Seen by a Provider: Nov 04, 2020 Time Seen by a Provider: 09:45 Subjective/Events-last exam Rach states she feels improved but tired. She denies nausea or abdominal pain. States she did have some sharp epigastric abdominal pain when she awoke this morning, but it has resolved. The patient denies fever, chills, and SOB. Objective Exam Vital Signs Date Time Temp Pulse Resp B/P (MAP) Pulse Ox O2 Delivery O2 Flow Rate FiO2 11/04/20 08:00 98 Room Air 11/04/20 07:49 36.6 105 18 129/84 (99) 98 Room Air 11/04/20 03:22 36.4 92 16 114/72 (86) 100 Room Air 11/03/20 23:58 36.6 98 16 115/71 (86) 96 Room Air 11/03/20 20:00 97 Room Air 11/03/20 19:26 37.2 108 16 123/63 (83) 98 Room Air 11/03/20 14:57 36.6 113 16 110/61 (77) 96 Room Air 11/03/20 12:49 97 Room Air 11/03/20 12:42 103 11/03/20 12:00 106 16 119/77 (91) 97 Room Air 11/03/20 11:38 36.6 I & O 11/04/20 07:00 Intake Total 2600 ml Output Total 550 ml Balance 2050 ml Capillary Refill : Less Than 3 Seconds General Appearance: No Apparent Distress, WD/WN HEENT: Moist Mucous Membranes Neck: Full Range of Motion, Normal Inspection Respiratory: Chest Non Tender, Lungs Clear, Normal Breath Sounds, No Accessory Muscle Use, No Respiratory Distress Cardiovascular: No JVD, No Murmur, Normal Peripheral Pulses, Tachycardia (borderline tachycardic. regular rate) Gastrointestinal: normal bowel sounds, soft; No distended, No guarding, No rebound; tenderness (mild epigastric), other (fundus palpable below umbilicus) Extremity: Normal Capillary Refill, Normal Inspection, Normal Range of Motion, Non Tender, No Calf Tenderness, No Pedal Edema Neurologic/Psychiatric: Alert, Oriented x3 Skin: Normal Color, Warm/Dry Lymphatic: No Adenopathy Results Lab Laboratory Tests 11/03/20 12:05: Sodium Level 130L, Potassium Level 3.0L, Chloride Level 94L, Carbon Dioxide Level 27, Anion Gap 9, Blood Urea Nitrogen 8, Creatinine 0.62, Estimat Glomerular Filtration Rate > 60, BUN/Creatinine Ratio 13, Glucose Level 104, Calcium Level 7.6L 11/03/20 16:09: Potassium Level 2.8L 11/04/20 04:50: Sodium Level 135, Potassium Level 2.8L, Chloride Level 101, Carbon Dioxide Level 21, Anion Gap 13, Blood Urea Nitrogen 4L, Creatinine 0.56L, Estimat Glomerular Filtration Rate > 60, BUN/Creatinine Ratio 7, Glucose Level 100, Calcium Level 7.7L, White Blood Count 9.7, Red Blood Count 3.41L, Hemoglobin 10.4L, Hematocrit 33L, Mean Corpuscular Volume 95, Mean Corpuscular Hemoglobin 31, Mean Corpuscular Hemoglobin Concent 32, Red Cell Distribution Width 15.5H, Platelet Count 150, Mean Platelet Volume 12.5H, Immature Granulocyte % (Auto) 2, Neutrophils (%) (Auto) 73, Lymphocytes (%) (Auto) 19, Monocytes (%) (Auto) 4, Eosinophils (%) (Auto) 1, Basophils (%) (Auto) 0, Neutrophils # (Auto) 7.2, Lymphocytes # (Auto) 1.9, Monocytes # (Auto) 0.4, Eosinophils # (Auto) 0.1, Basophils # (Auto) 0.0, Immature Granulocyte # (Auto) 0.2H, Corrected Calcium 8.7, Magnesium Level 1.8, Total Bilirubin 0.4, Aspartate Amino Transf (AST/SGOT) 91H, Alanine Aminotransferase (ALT/SGPT) 206H, Alkaline Phosphatase 47, Total Protein 5.0L, Albumin 2.8L Microbiology 11/02/20 MRSA Screen - Final, Complete MRSA not isolated 11/02/20 Urine Culture - Preliminary, Resulted >=3 Gram Positive Isolates YEAST Assessment/Plan Assessment/Plan Assessment/Plan 30 yo @ 16.5 weeks EDC of 04/14/2021 hyperemesis gravidarum, nausea currently controlled. Marijuana use in biliary US showed sludge without GB wall thickening, no stones visualized on RUQ US Severe dehydration involving hyponatremia and hypokalemia. Continues to have hypokalemia, but hyponatremia has improved to 135 this morning. transaminitis, improving compared to yesterday. total bilirubin has decreased to normal range Leukocytosis, resolved. WBC down to 9.7. continue current management surgery not indicated at this time ADÁN MCLAUGHLIN DO 11/04/20 1330: Subjective Time Seen by a Provider: 13:03 Subjective/Events-last exam Pt seen and examined, states she finally had a BM. She has a little bit of nausea now after eating lunch. Denies pain. Review of Systems General: No Chills, No Night Sweats Pulmonary: No Dyspnea, No Cough Cardiovascular: No: Chest Pain, Palpitations Gastrointestinal: Nausea; No: Vomiting, Abdominal Pain Objective Exam General Appearance: No Apparent Distress, WD/WN HEENT: Moist Mucous Membranes Respiratory: Chest Non Tender, Lungs Clear, Normal Breath Sounds, No Accessory Muscle Use, No Respiratory Distress Cardiovascular: No Murmur, Tachycardia (borderline tachycardic. regular rate) Gastrointestinal: soft; No distended, No guarding, No rebound; tenderness (mild epigastric), other (Gravid abdomen, uterus palpable below umbilicus) Neurologic/Psychiatric: Alert, Oriented x3 Assessment/Plan Assessment/Plan Assessment/Plan Hyperemesis gravidarum, nausea currently controlled - 30 yo @ 16.5 weeks EDC of 04/14/2021. Marijuana use in US showed sludge without GB wall thickening - may need Lap kelly in the future, not indicated now Severe dehydration Hyponatremia and Hypokalemia - hyponatremia has improved to 135 this morning. Receiving K+ replacement Supervisory-Addendum Brief Verification & Attestation Participated in pt care: history, MDM, physical Personally performed: exam, history, MDM Care discussed with: Medical Student Procedures: n/a Verification and Attestation of Medical Student E/M Service A medical student performed and documented this service. I then reviewed and verified all information documented by the medical student and made modifications to such information, when appropriate. I personally performed a physical exam, medical decision making and then discussed any differences between the notes and made revisions as necessary to create one note. Adán Mclaughlin , 11/04/20 , 13:30 JAMILAH PRATT MED STUDENT Nov 04, 2020 11:18 ADÁN MCLAUGHLIN DO Nov 04, 2020 13:30
[2020-11-04] MEDS: CALCIUM CARBONATE 500 MG (TUMS) TAB.CHEW PO PRN ×2 (12:28→18:12)
--- NOTE | 2020-11-04 12:58 | Progress Note - Hospitalist ---
Subjective HPI/CC On Admission Date Seen by Provider: Nov 04, 2020 Time Seen by Provider: 12:45 CC: N/V with electrolyte abnormalities and 16 weeks HPI: This is a 30yoWF who presents to the ER with severe N/V and abdominal pain who was assessed to be 16 weeks with severe electrolyte abnormalities. Severe hyponatremia and hypokalemia with gallbladder sludge on imaging placed her at high risk for mortality for patient and fetus so she was placed in ICU with multiple consultants. Currently she is having mucous in her throat. Subjective/Events-last exam Patient improved Still receiving IVF Potassium supplement ordered No pain except gallbladder pain TUMCristhian requested Review of Systems General: Fatigue, Malaise Gastrointestinal: Abdominal Pain Objective Exam Vital Signs Vital Signs Date Time Temp Pulse Resp B/P (MAP) Pulse Ox O2 Delivery O2 Flow Rate FiO2 11/05/20 03:31 36.4 98 120/82 (95) Room Air 11/05/20 00:34 16 99 Capillary Refill : Less Than 3 Seconds General Appearance: No Apparent Distress, WD/WN, Chronically ill Respiratory: Lungs Clear, Normal Breath Sounds Cardiovascular: Regular Rate, Rhythm Neurologic/Psychiatric: Alert, Oriented x3 Results/Procedures Lab Patient resulted labs reviewed. Assessment/Plan Assessment and Plan Assess & Plan/Chief Complaint Assessment: Hyperemesis gravidarum Hyponatremia Hypokalemia Gallbladder pain with sludge Plan: IVF Potassium supplement KELLY FISHER DO Nov 04, 2020 12:58
[2020-11-04] MEDS: PROMETHAZINE INJ 25 MG/ML (PHENERGAN) AMP IV PRN (13:37)
[2020-11-05] MEDS: NS IV 1000 ML 1,000 ML IV SCH ×3 (00:39→18:18)
[2020-11-05] MEDS: metroNIDAZOLE 500 MG/100 ML IVPB (PRE-MIX) IV SCH ×3 (02:36→19:57)
[2020-11-05] MEDS: CALCIUM CARBONATE 500 MG (TUMS) TAB.CHEW PO PRN ×3 (02:37→16:21)
--- NOTE | 2020-11-05 06:57 | Progress Note - Hospitalist ---
Subjective HPI/CC On Admission Date Seen by Provider: Nov 05, 2020 Time Seen by Provider: 11:00 CC: N/V with electrolyte abnormalities and 16 weeks HPI: This is a 30yoWF who presents to the ER with severe N/V and abdominal pain who was assessed to be 16 weeks with severe electrolyte abnormalities. Severe hyponatremia and hypokalemia with gallbladder sludge on imaging placed her at high risk for mortality for patient and fetus so she was placed in ICU with multiple consultants. Currently she is having mucous in her throat. Subjective/Events-last exam Patient doing better Advanced diet Potassium still low Mag 1.4 LFT's improved Review of Systems Gastrointestinal: Nausea, Vomiting Objective Exam Vital Signs Vital Signs Date Time Temp Pulse Resp B/P (MAP) Pulse Ox O2 Delivery O2 Flow Rate FiO2 11/05/20 15:16 36.6 92 18 123/79 (94) 99 Room Air Capillary Refill : Less Than 3 Seconds General Appearance: No Apparent Distress, WD/WN, Chronically ill Respiratory: Lungs Clear Cardiovascular: Regular Rate, Rhythm Neurologic/Psychiatric: Alert, Oriented x3 Results/Procedures Lab Laboratory Tests 11/05/20 06:30 Patient resulted labs reviewed. Assessment/Plan Assessment and Plan Assess & Plan/Chief Complaint Assessment: Hyperemesis gravidarum Hyponatremia Hypokalemia Gallbladder pain with sludge Plan: IVF Potassium supplement 11/05/20: Increase diet Potassium replacement KELLY FISHER DO Nov 05, 2020 06:56
[2020-11-05] MEDS: ACETAMINOPHEN 325 MG TABLET PO PRN ×3 (07:00→22:17)
[2020-11-05 07:11] LABS: BASOPHILS % (AUTO) 0 % (0-10); EOSINOPHILS # (AUTO) 0.1 10^3/uL (0.0-0.3); EOSINOPHILS % (AUTO) 1 % (0-10); HEMATOCRIT 31 % (35-52); HEMOGLOBIN 9.7 g/dL (11.5-16.0); LYMPHOCYTES # (AUTO) 1.6 10^3/uL (1.0-4.0); LYMPHOCYTES % (AUTO) 17 % (12-44); MEAN CORPUSCULAR HEMOGLOBIN 30 pg (25-34); MEAN CORPUSCULAR HGB CONC 31 g/dL (32-36); MEAN CORPUSCULAR VOLUME 95 fL (80-99); MEAN PLATELET VOLUME 12.9 fL (9.0-12.2); MONOCYTES # (AUTO) 0.3 10^3/uL (0.0-1.0); MONOCYTES % (AUTO) 3 % (0-12); NEUTROPHILS # (AUTO) 7.2 10^3/uL (1.8-7.8); NEUTROPHILS % (AUTO) 77 % (42-75); PLATELET COUNT 137 10^3/uL (130-400); WHITE BLOOD COUNT 9.4 10^3/uL (4.3-11.0)
[2020-11-05 07:43] LABS: ALANINE AMINOTRANSFERASE 147 U/L (0-55); ALBUMIN 2.6 GM/DL (3.2-4.5); ALKALINE PHOSPHATASE 44 U/L (40-136); BILIRUBIN,TOTAL 0.3 MG/DL (0.1-1.0); BUN/CREATININE RATIO 6; CALCIUM 7.8 MG/DL (8.5-10.1); CARBON DIOXIDE 21 MMOL/L (21-32); CHLORIDE 104 MMOL/L (98-107); CREATININE SERUM 0.51 MG/DL (0.60-1.30); GFR ESTIMATED > 60; GLUCOSE 125 MG/DL (70-105); MAGNESIUM 1.4 MG/DL (1.6-2.4); POTASSIUM 3.2 MMOL/L (3.6-5.0); SODIUM 133 MMOL/L (135-145); TOTAL PROTEIN 4.7 GM/DL (6.4-8.2)
[2020-11-05] MEDS: PROMETHAZINE INJ 25 MG/ML (PHENERGAN) AMP IV PRN ×2 (07:53→16:20)
[2020-11-05] MEDS: POTASSIUM CL 10MEQ/50ML IVPB 50 ML IV SCH ×7 (09:05→18:17)
[2020-11-05] MEDS: MAGNESIUM 1 GM/100 ML IVPB 100 ML IV SCH ×2 (09:05→10:18)
--- NOTE | 2020-11-05 09:08 | Progress Note - Surgery ---
JAMILAH PRATT MED STUDENT 11/05/20 0908: Subjective Date Seen by a Provider: Nov 05, 2020 Time Seen by a Provider: 07:15 Subjective/Events-last exam Rach Villavicencio reports she has not had fever, chills, abdominal pain, nausea, vomiting, or shortness of breath today. She says she is hungry, wants to eat breakfast and go home. Objective Exam Vital Signs Date Time Temp Pulse Resp B/P (MAP) Pulse Ox O2 Delivery O2 Flow Rate FiO2 11/05/20 07:52 36.4 84 134/82 (99) Room Air 11/05/20 03:31 36.4 98 120/82 (95) Room Air 11/05/20 00:34 36.4 95 16 118/80 (93) 99 Room Air 11/04/20 20:00 36.2 98 19 128/81 (97) 99 Room Air 11/04/20 20:00 98 Room Air 11/04/20 16:00 36.5 106 17 121/76 (91) 99 Room Air 11/04/20 11:39 36.3 104 18 146/94 (111) 100 Room Air I & O 11/05/20 07:00 Intake Total 4160 ml Balance 4160 ml Capillary Refill : Less Than 3 Seconds General Appearance: No Apparent Distress, WD/WN HEENT: Moist Mucous Membranes Neck: Full Range of Motion, Normal Inspection Respiratory: Lungs Clear, Normal Breath Sounds, No Accessory Muscle Use, No Respiratory Distress Cardiovascular: Regular Rate, Rhythm, No Edema, No Murmur Gastrointestinal: normal bowel sounds, non tender, soft; No distended, No guarding, No rebound; other (Gravid abdomen, uterus palpable below umbilicus) Extremity: Normal Capillary Refill, Normal Inspection, Normal Range of Motion, Non Tender, No Calf Tenderness, No Pedal Edema Neurologic/Psychiatric: Alert, Oriented x3 Skin: Normal Color, Warm/Dry Lymphatic: No Adenopathy Results Lab Laboratory Tests 11/05/20 06:30: White Blood Count 9.4, Red Blood Count 3.25L, Hemoglobin 9.7L, Hematocrit 31L, Mean Corpuscular Volume 95, Mean Corpuscular Hemoglobin 30, Mean Corpuscular Hemoglobin Concent 31L, Red Cell Distribution Width 15.8H, Platelet Count 137, Mean Platelet Volume 12.9H, Immature Granulocyte % (Auto) 2, Neutrophils (%) (Auto) 77H, Lymphocytes (%) (Auto) 17, Monocytes (%) (Auto) 3, Eosinophils (%) (Auto) 1, Basophils (%) (Auto) 0, Neutrophils # (Auto) 7.2, Lymphocytes # (Auto) 1.6, Monocytes # (Auto) 0.3, Eosinophils # (Auto) 0.1, Basophils # (Auto) 0.0, Immature Granulocyte # (Auto) 0.2H, Sodium Level 133L, Potassium Level 3.2L, Chloride Level 104, Carbon Dioxide Level 21, Anion Gap 8, Blood Urea Nitrogen 3L , Creatinine 0.51L, Estimat Glomerular Filtration Rate > 60, BUN/Creatinine Ratio 6, Glucose Level 125H, Calcium Level 7.8L, Corrected Calcium 8.9, Magnesium Level 1.4L, Total Bilirubin 0.3, Aspartate Amino Transf (AST/SGOT) 54H , Alanine Aminotransferase (ALT/SGPT) 147H, Alkaline Phosphatase 44, Total Protein 4.7L, Albumin 2.6L Microbiology 11/02/20 MRSA Screen - Final, Complete MRSA not isolated 11/02/20 Urine Culture - Preliminary, Resulted >=3 Gram Positive Isolates YEAST Assessment/Plan Assessment/Plan Assessment/Plan Hyperemesis gravidarum, nausea currently controlled - 30 yo @ 16.5 weeks ED C of 04/14/2021. Marijuana use in US showed sludge without GB wall thickening - may need Lap kelly in the future, not indicated now transaminitis - continued improvement. Hyponatremia and Hypokalemia- Receiving IVNS and KCl. hypomagnesemia - 1.4 from 1.8 -Mg supplement has been ordered electrolytes prevent discharge home today, will reassess labs tomorrow. ADÁN RIVERA DO 11/06/20 1447: Subjective Time Seen by a Provider: 17:46 Subjective/Events-last exam Pt seen and examined, states she is doing better than yesterday and thinks she is ready to go home. Review of Systems General: No Chills, No Night Sweats Pulmonary: No Dyspnea, No Cough Cardiovascular: No: Chest Pain, Palpitations Gastrointestinal: Abdominal Pain; No: Nausea, Vomiting Objective Exam General Appearance: No Apparent Distress, WD/WN HEENT: Moist Mucous Membranes Respiratory: Lungs Clear, Normal Breath Sounds, No Accessory Muscle Use, No Respiratory Distress Cardiovascular: Regular Rate, Rhythm, No Murmur Gastrointestinal: non tender, soft; No distended, No guarding, No rebound Assessment/Plan Assessment/Plan Assessment/Plan Hyperemesis gravidarum, nausea currently controlled - 30 yo @ 16.5 weeks EDC of 04/14/2021. Marijuana use in US showed sludge without GB wall thickening - may need Lap kelly in the future, not indicated now transaminitis - continued improvement. Hyponatremia and Hypokalemia- Receiving IVNS and KCl. hypomagnesemia - 1.4 from 1.8 -Mg supplement has been ordered electrolytes prevent discharge home today, will reassess labs tomorrow. Supervisory-Addendum Brief Verification & Attestation Participated in pt care: history, MDM, physical Personally performed: exam, history, MDM Care discussed with: Medical Student Procedures: n/a Verification and Attestation of Medical Student E/M Service A medical student performed and documented this service. I then reviewed and verified all information documented by the medical student and made modifications to such information, when appropriate. I personally performed a physical exam, medical decision making and then discussed any differences between the notes and made revisions as necessary to create one note. Adán Rivera , 11/06/20 , 14:47 JAMILAH PRATT MED STUDENT Nov 05, 2020 09:08 ADÁN RIVERA DO Nov 06, 2020 14:47
[2020-11-05] MEDS ORDERED: cefTRIAXone 1,000 MG IV (ROCEPHIN) VIAL ONE (10:08)
[2020-11-05] MEDS: cefTRIAXone 1,000 MG/SWFI 10 ML IV PUSH IV SCH ×2 (10:18)
[2020-11-05] MEDS: PROCHLORPERAZINE 10 MG/2ML INJ (COMPAZINE) IV PRN ×2 (11:12→19:57)
--- NOTE | 2020-11-05 16:40 | Progress Note - Cardiology ---
Cardiology SOAP Progress Note Subjective: No cp or palp or syncope or shortness of breath Was reporting chest wall pain (reproducible with palpation over the sternum) that has now resolved Nausea much better. No vomiting or diarrhea Objective: I&O/Vital Signs 11/05/20 11/05/20 11/05/20 11/05/20 07:52 08:00 11:41 15:16 Temp 36.4 36.4 36.6 Pulse 84 91 92 Resp 18 18 B/P (MAP) 134/82 (99) 139/88 (105) 123/79 (94) Pulse Ox 100 99 O2 Delivery Room Air Room Air Room Air Room Air 11/05/20 00:00 Intake Total 2150 ml Balance 2150 ml Weight (Pounds): 125 Weight (Ounces): 4.0 Weight (Calculated Kilograms): 56.423273 Constitutional: AAO x 3, well-developed, well-nourished Respiratory: No accessory muscle use, No respiratory distress; chest expansion is symmetric, chest is bilaterally symmetric Cardiovascular: regular rate-rhythm; No JVD; S1 and S2 Gastrointestional: soft, audible bowel sounds Extremities: no lower extremity edema bilateral Neurologic/Psychiatric: grossly intact (moves all extremities) Skin: No rash on exposed areas, No ulcerations on exposed areas Results/Procedures: Labs Laboratory Tests 11/05/20 06:30: White Blood Count 9.4, Red Blood Count 3.25L, Hemoglobin 9.7L, Hematocrit 31L, Mean Corpuscular Volume 95, Mean Corpuscular Hemoglobin 30, Mean Corpuscular Hemoglobin Concent 31L, Red Cell Distribution Width 15.8H, Platelet Count 137, Mean Platelet Volume 12.9H, Immature Granulocyte % (Auto) 2, Neutrophils (%) (Auto) 77H, Lymphocytes (%) (Auto) 17, Monocytes (%) (Auto) 3, Eosinophils (%) (Auto) 1, Basophils (%) (Auto) 0, Neutrophils # (Auto) 7.2, Lymphocytes # (Auto) 1.6, Monocytes # (Auto) 0.3, Eosinophils # (Auto) 0.1, Basophils # (Auto) 0.0, Immature Granulocyte # (Auto) 0.2H, Sodium Level 133L, Potassium Level 3.2L, Chloride Level 104, Carbon Dioxide Level 21, Anion Gap 8, Blood Urea Nitrogen 3L , Creatinine 0.51L, Estimat Glomerular Filtration Rate > 60, BUN/Creatinine Ratio 6, Glucose Level 125H, Calcium Level 7.8L, Corrected Calcium 8.9, Magnesium Level 1.4L, Total Bilirubin 0.3, Aspartate Amino Transf (AST/SGOT) 54H , Alanine Aminotransferase (ALT/SGPT) 147H, Alkaline Phosphatase 44, Total Protein 4.7L, Albumin 2.6L Microbiology 11/02/20 MRSA Screen - Final, Complete MRSA not isolated 11/02/20 Urine Culture - Preliminary, Resulted >=3 Gram Positive Isolates YEAST Laboratory Tests 11/04/20 04:50 11/05/20 06:30 A/P: Assessment: Palpitations secondary to sinus tachycardia likely d/t electrolyte abnormalities and volume depletion Chest wall pain on 11/04/20, now resolved Echo on 11/03/20: LVEF 55-60% 16 weeks Hyperemesis gravidarum UTI, managed by the [facility] Marijuana use Plan: * Replace electrolytes * IVF to replace volume * Management of by OB services * Management of UTI by Medical services * Advise cessation of marijuana PAVAN MONTERO MD FACP FAC CCDS Nov 05, 2020 16:40
[2020-11-06] MEDS: CALCIUM CARBONATE 500 MG (TUMS) TAB.CHEW PO PRN ×2 (00:07→07:42)
[2020-11-06] MEDS: metroNIDAZOLE 500 MG/100 ML IVPB (PRE-MIX) IV SCH (02:17)
[2020-11-06] MEDS: NS IV 1000 ML 1,000 ML IV SCH ×3 (02:17→09:22)
[2020-11-06 05:49] LABS: BASOPHILS % (AUTO) 0 % (0-10); EOSINOPHILS # (AUTO) 0.1 10^3/uL (0.0-0.3); EOSINOPHILS % (AUTO) 1 % (0-10); HEMATOCRIT 33 % (35-52); HEMOGLOBIN 10.7 g/dL (11.5-16.0); LYMPHOCYTES # (AUTO) 1.7 10^3/uL (1.0-4.0); LYMPHOCYTES % (AUTO) 14 % (12-44); MEAN CORPUSCULAR HEMOGLOBIN 31 pg (25-34); MEAN CORPUSCULAR HGB CONC 32 g/dL (32-36); MEAN CORPUSCULAR VOLUME 95 fL (80-99); MEAN PLATELET VOLUME 12.6 fL (9.0-12.2); MONOCYTES # (AUTO) 0.3 10^3/uL (0.0-1.0); MONOCYTES % (AUTO) 3 % (0-12); NEUTROPHILS # (AUTO) 9.2 10^3/uL (1.8-7.8); NEUTROPHILS % (AUTO) 80 % (42-75); PLATELET COUNT 165 10^3/uL (130-400); WHITE BLOOD COUNT 11.6 10^3/uL (4.3-11.0)
[2020-11-06] MEDS: PROCHLORPERAZINE 10 MG/2ML INJ (COMPAZINE) IV PRN (05:57)
[2020-11-06 06:16] LABS: ALANINE AMINOTRANSFERASE 202 U/L (0-55); ALBUMIN 2.7 GM/DL (3.2-4.5); ALKALINE PHOSPHATASE 47 U/L (40-136); BILIRUBIN,TOTAL 0.2 MG/DL (0.1-1.0); BUN/CREATININE RATIO 15; CALCIUM 8.4 MG/DL (8.5-10.1); CARBON DIOXIDE 19 MMOL/L (21-32); CHLORIDE 107 MMOL/L (98-107); CREATININE SERUM 0.47 MG/DL (0.60-1.30); GFR ESTIMATED > 60; GLUCOSE 97 MG/DL (70-105); MAGNESIUM 1.3 MG/DL (1.6-2.4); POTASSIUM 3.8 MMOL/L (3.6-5.0); SODIUM 135 MMOL/L (135-145); TOTAL PROTEIN 5.1 GM/DL (6.4-8.2)
[2020-11-06] MEDS: ACETAMINOPHEN 325 MG TABLET PO PRN (06:52)
[2020-11-06 08:24] VITALS: BP 131/81
[2020-11-06] MEDS ORDERED: cefTRIAXone 1,000 MG IV (ROCEPHIN) VIAL ONE (09:04)
--- NOTE | 2020-11-06 09:17 | Progress Note - Cardiology ---
Cardiology SOAP Progress Note Objective: I&O/Vital Signs 11/05/20 11/06/20 11/06/20 23:44 08:00 08:24 Temp 36.8 36.9 Pulse 92 88 Resp 18 16 B/P (MAP) 129/73 (91) 131/81 (98) Pulse Ox 99 99 O2 Delivery Room Air Room Air Room Air 11/06/20 00:00 Intake Total 2784 ml Balance 2784 ml Weight (Pounds): 125 Weight (Ounces): 4.0 Weight (Calculated Kilograms): 56.484668 Constitutional: AAO x 3, well-developed, well-nourished Respiratory: No accessory muscle use, No respiratory distress; chest expansion is symmetric, chest is bilaterally symmetric Cardiovascular: regular rate-rhythm; No JVD; S1 and S2 Gastrointestional: soft, audible bowel sounds Extremities: no lower extremity edema bilateral Neurologic/Psychiatric: grossly intact (moves all extremities) Skin: No rash on exposed areas, No ulcerations on exposed areas Results/Procedures: Labs Laboratory Tests 11/06/20 05:05: White Blood Count 11.6H, Red Blood Count 3.49L, Hemoglobin 10.7L, Hematocrit 33L , Mean Corpuscular Volume 95, Mean Corpuscular Hemoglobin 31, Mean Corpuscular Hemoglobin Concent 32, Red Cell Distribution Width 15.9H, Platelet Count 165, Mean Platelet Volume 12.6H, Immature Granulocyte % (Auto) 2, Neutrophils (%) (Auto) 80H, Lymphocytes (%) (Auto) 14, Monocytes (%) (Auto) 3, Eosinophils (%) (Auto) 1, Basophils (%) (Auto) 0, Neutrophils # (Auto) 9.2H, Lymphocytes # (Auto) 1.7, Monocytes # (Auto) 0.3, Eosinophils # (Auto) 0.1, Basophils # (Auto) 0.0, Immature Granulocyte # (Auto) 0.2H, Sodium Level 135, Potassium Level 3.8, Chloride Level 107, Carbon Dioxide Level 19L, Anion Gap 9, Blood Urea Nitrogen 7, Creatinine 0.47L, Estimat Glomerular Filtration Rate > 60, BUN/Creatinine Ratio 15, Glucose Level 97, Calcium Level 8.4L, Corrected Calcium 9.4, Magnesium Level 1.3L, Total Bilirubin 0.2, Aspartate Amino Transf (AST/SGOT) 151H, Alanine Aminotransferase (ALT/SGPT) 202H, Alkaline Phosphatase 47, Total Protein 5.1L, Albumin 2.7L Microbiology 11/02/20 MRSA Screen - Final, Complete MRSA not isolated 11/02/20 Urine Culture - Preliminary, Resulted >=3 Gram Positive Isolates YEAST A/P: Assessment: Palpitations secondary to sinus tachycardia likely d/t electrolyte abnormalities and volume depletion Chest wall pain on 11/04/20, now resolved Echo on 11/03/20: LVEF 55-60% 16 weeks Hyperemesis gravidarum UTI, managed by the Med Svce Marijuana use Elevated liver enzymes of undetermined etiology - managment per medical services Plan: * Replace electrolytes * IVF to replace volume * Management of by OB services * Management of UTI by Medical services * Advise cessation of marijuana REGGIE HERMOSILLO Nov 06, 2020 09:17
[2020-11-06] MEDS: MAGNESIUM 1 GM/100 ML IVPB 100 ML IV SCH ×2 (09:22→09:26)
[2020-11-06] MEDS: cefTRIAXone 1,000 MG/SWFI 10 ML IV PUSH IV SCH ×2 (09:22)
[2020-11-06] MEDS ORDERED: PROM25TA14 PO (12:18)
--- NOTE | 2020-11-06 12:20 | Discharge Summary ---
Discharge Summary Hospital Course Hospital Course Date of Admission: Nov 02, 2020 at 15:40 Admission Diagnosis : Hyperemesis gravidarum Hyponatremia Hypokalemia Elevated liver enzymes Second trimester [facility] Date of Discharge: 11/06/20 Discharge Diagnosis: Hyperemesis gravidarum Gall bladder sludge Second trimester Hospital Course: Pt admitted and electrolytes replaced, GB US showed sludge, surgery consulted, conservative management for now. On day of d/c, K was normal and she tolerated chicken sandwich and brazilian fries and was requesting d/c. Labs and Pending Lab Test: Laboratory Tests 11/06/20 05:05: White Blood Count 11.6H, Red Blood Count 3.49L, Hemoglobin 10.7L, Hematocrit 33L , Mean Corpuscular Volume 95, Mean Corpuscular Hemoglobin 31, Mean Corpuscular Hemoglobin Concent 32, Red Cell Distribution Width 15.9H, Platelet Count 165, Mean Platelet Volume 12.6H, Immature Granulocyte % (Auto) 2, Neutrophils (%) (Auto) 80H, Lymphocytes (%) (Auto) 14, Monocytes (%) (Auto) 3, Eosinophils (%) (Auto) 1, Basophils (%) (Auto) 0, Neutrophils # (Auto) 9.2H, Lymphocytes # (Auto) 1.7, Monocytes # (Auto) 0.3, Eosinophils # (Auto) 0.1, Basophils # (Auto) 0.0, Immature Granulocyte # (Auto) 0.2H, Sodium Level 135, Potassium Level 3.8, Chloride Level 107, Carbon Dioxide Level 19L, Anion Gap 9, Blood Urea Nitrogen 7, Creatinine 0.47L, Estimat Glomerular Filtration Rate > 60, BUN/Creatinine Ratio 15, Glucose Level 97, Calcium Level 8.4L, Corrected Calcium 9.4, Magnesium Level 1.3L, Total Bilirubin 0.2, Aspartate Amino Transf (AST/SGOT) 151H, Alanine Aminotransferase (ALT/SGPT) 202H, Alkaline Phosphatase 47, Total Protein 5.1L, Albumin 2.7L Microbiology 11/02/20 MRSA Screen - Final, Complete MRSA not isolated 11/02/20 Urine Culture - Preliminary, Resulted >=3 Gram Positive Isolates YEAST Home Meds Active Reported Formula ( Vit W-Ca,Fe,FA(<1 mg)) 1 Each Tablet 1 Each PO DAILY Ondansetron Odt (Ondansetron) 4 Mg Tab.rapdis 4 Mg PO Q4H PRN Assessment/Pt DC Instructions Follow up with Dr. Elkins within a few days of discharge. Discharge Diet: Eat Small Frequent Meals Activity as Tolerated: Yes Discharge Physical Examination Allergies: Coded Allergies: tramadol (Verified Allergy, Unknown, RASH, 04/27/16) General Appearance: No Apparent Distress, WD/WN Respiratory: Lungs Clear, Normal Breath Sounds Cardiovascular: Regular Rate, Rhythm, No Murmur Gastrointestinal: Normal Bowel Sounds, Non Tender, Soft Skin: Normal Color, Warm/Dry Neurologic/Psychiatric: Alert, No Motor/Sensory Deficits Copy Copies To 1: DONTA ELKINS BETHANY N MD Nov 06, 2020 12:20
[2020-11-06 12:46] VITALS: BP 131/81
--- NOTE | 2020-11-06 13:21 | Progress Note - Cardiology ---
Cardiology SOAP Progress Note Subjective: Some gen malaise No cp or palp or syncope Nausea and vomiting have improved but not completely resolved Wishes to go home Objective: I&O/Vital Signs 11/06/20 11/06/20 11/06/20 08:00 08:24 12:46 Temp 36.9 36.9 Pulse 88 88 Resp 16 16 B/P (MAP) 131/81 (98) 131/81 Pulse Ox 99 99 O2 Delivery Room Air Room Air Room Air 11/06/20 00:00 Intake Total 2784 ml Balance 2784 ml Weight (Pounds): 125 Weight (Ounces): 4.0 Weight (Calculated Kilograms): 56.885453 Constitutional: AAO x 3, well-developed, well-nourished Respiratory: No accessory muscle use, No respiratory distress; chest expansion is symmetric, chest is bilaterally symmetric Cardiovascular: regular rate-rhythm; No JVD; S1 and S2 Gastrointestional: soft, audible bowel sounds Extremities: no lower extremity edema bilateral Neurologic/Psychiatric: grossly intact (moves all extremities) Skin: No rash on exposed areas, No ulcerations on exposed areas Results/Procedures: Labs Laboratory Tests 11/06/20 05:05: White Blood Count 11.6H, Red Blood Count 3.49L, Hemoglobin 10.7L, Hematocrit 33L , Mean Corpuscular Volume 95, Mean Corpuscular Hemoglobin 31, Mean Corpuscular Hemoglobin Concent 32, Red Cell Distribution Width 15.9H, Platelet Count 165, Mean Platelet Volume 12.6H, Immature Granulocyte % (Auto) 2, Neutrophils (%) (Auto) 80H, Lymphocytes (%) (Auto) 14, Monocytes (%) (Auto) 3, Eosinophils (%) (Auto) 1, Basophils (%) (Auto) 0, Neutrophils # (Auto) 9.2H, Lymphocytes # (Auto) 1.7, Monocytes # (Auto) 0.3, Eosinophils # (Auto) 0.1, Basophils # (Auto) 0.0, Immature Granulocyte # (Auto) 0.2H, Sodium Level 135, Potassium Level 3.8, Chloride Level 107, Carbon Dioxide Level 19L, Anion Gap 9, Blood Urea Nitrogen 7, Creatinine 0.47L, Estimat Glomerular Filtration Rate > 60, BUN/Creatinine Ratio 15, Glucose Level 97, Calcium Level 8.4L, Corrected Calcium 9.4, Magnesium Level 1.3L, Total Bilirubin 0.2, Aspartate Amino Transf (AST/SGOT) 151H, Alanine Aminotransferase (ALT/SGPT) 202H, Alkaline Phosphatase 47, Total Protein 5.1L, Albumin 2.7L Microbiology 11/02/20 MRSA Screen - Final, Complete MRSA not isolated 11/02/20 Urine Culture - Preliminary, Resulted >=3 Gram Positive Isolates YEAST A/P: Assessment: Palpitations secondary to sinus tachycardia likely d/t electrolyte abnormalities and volume depletion. No significant arrhythmia seen during hospitalization Chest wall pain on 11/04/20, now resolved Echo on 11/03/20: LVEF 55-60% 16 weeks Hyperemesis gravidarum UTI, managed by the Med Svce Marijuana use Elevated liver enzymes of undetermined etiology - managment per Medical services Plan: * Cardiac status stable * Management of by OB services * Management of UTI by Medical services * Advise cessation of marijuana PAVAN MONTERO MD FACP FAC CCDS Nov 06, 2020 13:21
== END 2020-11-06 13:02 | disposition home or self-care (01) | DRG 832 ==
LOC: EDUNIT# 13:51 → ER 13:53 → ICU 15:40 → 4TH 11-03 13:40
PROVIDERS: ADMIT Internal Medicine; ATTEND Family Medicine
DX: O21.1 Hyperemesis gravidarum with metabolic disturbance (principal); O23.42 Unspecified infection of urinary tract in pregnancy, second trimester; O99.322 Drug use complicating pregnancy, second trimester; O26.612 Liver and biliary tract disorders in pregnancy, second trimester; O99.412 Diseases of the circulatory system complicating pregnancy, second trimester; E86.0 Dehydration; N28.9 Disorder of kidney and ureter, unspecified; Z3A.16 16 weeks gestation of pregnancy; F15.10 Other stimulant abuse, uncomplicated; F12.10 Cannabis abuse, uncomplicated; R00.0 Tachycardia, unspecified
CPT/HCPCS: 36415; 76705; 80048; 80053; 80306; 81000; 83735; 84100; 84132; 84702; 85007; 85025; 85027; 87081; 87088; 93005; 93306

== ENCOUNTER 2020-11-22 11:04 | Emergency (ER) | payer MEDICAID ==
[~2020-11-22] VITALS: Ht 165 cm; Wt 68.0 kg
[~2020-11-22 11:04] MED LIST changes: +ONDA4TAB11 PO; +PREN-8 PO
--- NOTE | 2020-11-22 11:41 | ED Abdominal Pain ---
General Chief Complaint: Abdominal/GI Problems Stated Complaint: N/V,DEHYDRATION- 19 WKS Nursing Triage Note: ARRIVED VIA AMB TO ROOM 09. N/V X2 DAYS. 19WEEKS GESTATION. STATES SHE HAS BEEN PUT IN THE HOSPITAL FOR LOW K+ 2-3 WEEKS AGO. Sepsis Screen: No Definite Risk Source of Information: Patient Exam Limitations: No Limitations History of Present Illness Date Seen by Provider: November 22, 2020 Time Seen by Provider: 11:33 Initial Comments Patient is a 30-year-old female who is a G4, P3 (19 weeks 3 days) who presents to the emergency department today with a chief complaint of epigastric abdominal discomfort nausea and vomiting. Patient states her symptoms have been going on for about 2 days. She states that she cannot keep anything down. She is used Zofran and Phenergan at home without any relief of symptoms. Patient relates to me that she was hospitalized 3 weeks ago in the intensive care unit for sign ificant dehydration related to her same symptoms. Patient was concerned that she was starting to feel the same way and decided to come to the emergency room for IV fluids. Patient denies any chronic medical problems. She is not on any potassium replacement currently. No fevers or chills. She states she has a mild sore throat she believes from vomiting. She believes her abdominal discomfort is secondary to dry heaving. She states she has had a little bit of vaginal discharge and itching in her genitalia most likely related to a yeast infection which she has had in the past. She has a little bit of burning with urination. She states she is constipated. It has been 2 or 3 days since she is had a bowel movement. All other review of systems reviewed and negative except as stated above. Timing/Duration: 1-2 Days Severity/Quality: Severe, Aching, Cramping Location: Epigastric Radiation: No Radiation Activities at Onset: None Associated Symptoms: Nausea/Vomiting Allergies and Home Medications Allergies Coded Allergies: tramadol (Verified Allergy, Unknown, RASH, 04/27/16) Home Medications Ondansetron 4 Mg Tab.rapdis, 4 MG PO Q4H PRN for NAUSEA/VOMITING-1ST LINE, (Reported) Vit W-Ca,Fe,FA(<1 mg) 1 Each Tablet, 1 EACH PO DAILY, (Reported) Promethazine HCl 25 Mg Tablet, 25 MG PO Q6H PRN for NAUSEA/VOMITING Prescribed by: SANDOVAL LOPEZ on 11/06/20 1218 Patient Home Medication List Home Medication List Reviewed: Yes Review of Systems Review of Systems Constitutional: see HPI EENTM: Throat Pain Respiratory: No Symptoms Reported Cardiovascular: No Symptoms Reported Gastrointestinal: Abdominal Pain, Constipated, Nausea, Poor Appetite, Vomiting Genitourinary: Burning, Discharge Musculoskeletal: no symptoms reported Skin: no symptoms reported All Other Systems Reviewed Negative Unless Noted: Yes Past Nbvpcfd-Bpotce-Udzgcm Hx Patient Social History Alcohol Use: Denies Use Smoking Status: Never a Smoker Recent Infectious Disease Expo: No Recent Hopitalizations: No Immunizations Up To Date Tetanus Booster (TDap): Unknown Seasonal Allergies Seasonal Allergies: No Past Medical History Surgeries: No Respiratory: No Cardiac: No Neurological: No : Yes Expected Date of Delivery: May 02, 2021 Reproductive Disorders: No Female Reproductive Disorders: Denies Sexually Transmitted Disease: No HIV/AIDS: No Gastrointestinal: No Musculoskeletal: No Endocrine: No Cancer: No Psychosocial: No Integumentary: No Blood Disorders: No Adverse Reaction/Blood Tranf: No Family Medical History Congenital heart disease (PT'S FATHER) Family history: Diabetes mellitus (GRANDMOTHER) Physical Exam Vital Signs Vital Signs - First Documented 11/22/20 11:15 Temp 36.7 Pulse 105 Resp 16 B/P (MAP) 131/91 (104) Pulse Ox 99 O2 Delivery Room Air Capillary Refill : Less Than 3 Seconds Height/Weight/BMI Height: 5'5" Weight: 125lbs. 4.0oz. 56.266576gw; 24.00 BMI Method:Stated General Appearance: WD/WN, no apparent distress HEENT: PERRL/EOMI, other (Dry oral mucosa) Neck: normal inspection Respiratory: lungs clear, normal breath sounds, no respiratory distress, no accessory muscle use Cardiovascular: regular rate, rhythm Gastrointestinal: soft, tenderness (Mild epigastric tenderness) Extremities: normal range of motion, non-tender, normal inspection, no pedal edema Neurologic/Psychiatric: alert, normal mood/affect, oriented x 3 Skin: normal color, warm/dry Progress/Results/Core Measures Results/Orders Lab Results Laboratory Tests Test 11/22/20 11:22 11/22/20 11:50 Range/Units White Blood Count 13.2 H 4.3-11.0 10^3/uL Red Blood Count 3.73 L 3.80-5.11 10^6/uL Hemoglobin 11.6 11.5-16.0 g/dL Hematocrit 35 35-52 % Mean Corpuscular Volume 94 80-99 fL Mean Corpuscular Hemoglobin 31 25-34 pg Mean Corpuscular Hemoglobin Concent 33 32-36 g/dL Red Cell Distribution Width 16.1 H 10.0-14.5 % Platelet Count 298 130-400 10^3/uL Mean Platelet Volume 11.5 9.0-12.2 fL Immature Granulocyte % (Auto) 2 % Neutrophils (%) (Auto) 84 H 42-75 % Lymphocytes (%) (Auto) 10 L 12-44 % Monocytes (%) (Auto) 3 0-12 % Eosinophils (%) (Auto) 0 0-10 % Basophils (%) (Auto) 0 0-10 % Neutrophils # (Auto) 11.2 H 1.8-7.8 10^3/uL Lymphocytes # (Auto) 1.3 1.0-4.0 10^3/uL Monocytes # (Auto) 0.4 0.0-1.0 10^3/uL Eosinophils # (Auto) 0.0 0.0-0.3 10^3/uL Basophils # (Auto) 0.0 0.0-0.1 10^3/uL Immature Granulocyte # (Auto) 0.3 H 0.0-0.1 10^3/uL Sodium Level 136 135-145 MMOL/L Potassium Level 3.7 3.6-5.0 MMOL/L Chloride Level 105 98-107 MMOL/L Carbon Dioxide Level 18 L 21-32 MMOL/L Anion Gap 13 5-14 MMOL/L Blood Urea Nitrogen 5 L 7-18 MG/DL Creatinine 0.61 0.60-1.30 MG/DL Estimat Glomerular Filtration Rate > 60 BUN/Creatinine Ratio 8 Glucose Level 122 H 70-105 MG/DL Calcium Level 8.7 8.5-10.1 MG/DL Corrected Calcium 9.3 8.5-10.1 MG/DL Total Bilirubin 0.4 0.1-1.0 MG/DL Aspartate Amino Transf (AST/SGOT) 12 5-34 U/L Alanine Aminotransferase (ALT/SGPT) 16 0-55 U/L Alkaline Phosphatase 62 40-136 U/L Total Protein 6.2 L 6.4-8.2 GM/DL Albumin 3.3 3.2-4.5 GM/DL Lipase 23 8-78 U/L Urine Color ORANGE Urine Clarity CLEAR Urine pH 5.5 5-9 Urine Specific [place] >=1.030 1.016-1.022 Urine Protein NEGATIVE NEGATIVE Urine Glucose (UA) NEGATIVE NEGATIVE Urine Ketones 3+ H NEGATIVE Urine Nitrite NEGATIVE NEGATIVE Urine Bilirubin 1+ H NEGATIVE Urine Urobilinogen 0.2 < = 1.0 MG/DL Urine Leukocyte Esterase NEGATIVE NEGATIVE Urine RBC (Auto) NEGATIVE NEGATIVE Urine RBC 0-2 /HPF Urine WBC 0-2 /HPF Urine Squamous Epithelial Cells 5-10 /HPF Urine Crystals NONE /LPF Urine Bacteria TRACE /HPF Urine Casts NONE /LPF Urine Mucus LARGE H /LPF Urine Culture Indicated NO My Orders Orders - MELONIE SOFIA MD Ed Iv/Invasive Line Start (11/22/20 11:43) Cbc With Automated Diff (11/22/20 11:43) Comprehensive Metabolic Panel (11/22/20 11:43) Lipase (11/22/20 11:43) Ua Culture If Indicated (11/22/20 11:43) Ns Iv 1000 Ml (Sodium Chloride 0.9%) (11/22/20 11:45) Metoclopramide Injection (Reglan Injecti (11/22/20 11:45) Diphenhydramine Injection (Benadryl Inje (11/22/20 11:45) Medications Given in ED Current Medications Medications Dose Ordered Sig/Dede Route Start Time Stop Time Status Last Admin Dose Admin Diphenhydramine HCl 25 mg ONCE ONCE IV 11/22/20 11:45 11/22/20 11:46 DC 11/22/20 11:54 25 MG Metoclopramide HCl 10 mg ONCE ONCE IVP 11/22/20 11:45 11/22/20 11:46 DC 11/22/20 11:53 10 MG Vital Signs/I&O 11/22/20 11:15 Temp 36.7 Pulse 105 Resp 16 B/P (MAP) 131/91 (104) Pulse Ox 99 O2 Delivery Room Air Blood Pressure Mean: 104 Progress Progress Note : Time: 12:36 Progress Note Patient is feeling much better after fluids and Reglan and Benadryl. I have advised her to continue taking her Phenergan and Zofran as needed [id number]. She needs to drink lots of fluids to help combat her constipation. I will recommend a stool softener daily. Patient is advised to follow-up with Dr. 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 She is given good return precautions. She verbalized understanding. All questions were sought and answered. Patient is stable for discharge. Departure Impression Primary Impression: Vomiting complicating Disposition: HOME, SELF-CARE Condition: Stable Departure-Patient Inst. Decision time for Depature: 12:37 Referrals: DONTA ELKINS DO (PCP/Family) Primary Care Physician Patient Instructions: Nausea and Vomiting of Add. Discharge Instructions: Try to drink plenty of fluids to stay well-hydrated. Continue to use your Phenergan and Zofran as needed for vomiting and nausea. Take a daily stool softener to help combat constipation. Use an [id number] medication such as Monistat for your vaginal itching. Follow-up with Dr. Elkins. Return to the emergency room for any new, concerning or worsening symptoms. MELONIE SOFIA MD November 22, 2020 11:41
[2020-11-22] MEDS ORDERED: diphenhydrAMINE 50 MG/ML INJ (BENADRYL) IV ONE (11:45)
[2020-11-22] MEDS ORDERED: NS IV 1000 ML 1,000 ML IV SCH (11:45)
[2020-11-22] MEDS ORDERED: METOCLOPRAMIDE INJ 10 MG/2 ML (REGLAN) IVP ONE (11:45)
[2020-11-22 11:51] LABS: BASOPHILS % (AUTO) 0 % (0-10); EOSINOPHILS % (AUTO) 0 % (0-10); HEMATOCRIT 35 % (35-52); HEMOGLOBIN 11.6 g/dL (11.5-16.0); LYMPHOCYTES # (AUTO) 1.3 10^3/uL (1.0-4.0); LYMPHOCYTES % (AUTO) 10 % (12-44); MEAN CORPUSCULAR HEMOGLOBIN 31 pg (25-34); MEAN CORPUSCULAR HGB CONC 33 g/dL (32-36); MEAN CORPUSCULAR VOLUME 94 fL (80-99); MEAN PLATELET VOLUME 11.5 fL (9.0-12.2); MONOCYTES # (AUTO) 0.4 10^3/uL (0.0-1.0); MONOCYTES % (AUTO) 3 % (0-12); NEUTROPHILS # (AUTO) 11.2 10^3/uL (1.8-7.8); NEUTROPHILS % (AUTO) 84 % (42-75); PLATELET COUNT 298 10^3/uL (130-400); WHITE BLOOD COUNT 13.2 10^3/uL (4.3-11.0)
[2020-11-22 11:53] LABS: ALBUMIN 3.3 GM/DL (3.2-4.5)
[2020-11-22 11:54] LABS: CHLORIDE 105 MMOL/L (98-107); POTASSIUM 3.7 MMOL/L (3.6-5.0); SODIUM 136 MMOL/L (135-145)
[2020-11-22 11:55] LABS: CALCIUM 8.7 MG/DL (8.5-10.1)
[2020-11-22 11:56] LABS: GLUCOSE 122 MG/DL (70-105); TOTAL PROTEIN 6.2 GM/DL (6.4-8.2)
[2020-11-22 11:57] LABS: BILIRUBIN,URINE 1+ (NEGATIVE); CLARITY,URINE CLEAR; COLOR,URINE ORANGE; GLUCOSE, URINE (UA) NEGATIVE (NEGATIVE); KETONES,URINE 3+ (NEGATIVE); LEUKOCYTE ESTERASE ,URINE NEGATIVE (NEGATIVE); NITRITE,URINE NEGATIVE (NEGATIVE); PH,URINE 5.5 (5-9); PROTEIN,URINE NEGATIVE (NEGATIVE)
[2020-11-22 11:57] LABS: CARBON DIOXIDE 18 MMOL/L (21-32)
[2020-11-22 11:58] LABS: BILIRUBIN,TOTAL 0.4 MG/DL (0.1-1.0)
[2020-11-22 11:59] LABS: ALKALINE PHOSPHATASE 62 U/L (40-136)
[2020-11-22 12:00] LABS: CREATININE SERUM 0.61 MG/DL (0.60-1.30); GFR ESTIMATED > 60
[2020-11-22 12:01] LABS: BUN/CREATININE RATIO 8
[2020-11-22 12:03] LABS: ALANINE AMINOTRANSFERASE 16 U/L (0-55); LIPASE 23 U/L (8-78)
[2020-11-22 12:09] LABS: BACTERIA,URINE TRACE /HPF; RBC,URINE 0-2 /HPF; WBC,URINE 0-2 /HPF
[2020-11-22 12:48] VITALS: BP 131/91
== END 2020-11-22 12:48 | disposition home or self-care (01) ==
LOC: EDUNIT# 11:04 → ER 11:07
DX: O21.0 Mild hyperemesis gravidarum (principal); Z3A.19 19 weeks gestation of pregnancy; Z88.5 Allergy status to narcotic agent
CPT/HCPCS: 36415; 80053; 81000; 83690; 85025

== ENCOUNTER → 2020-11-23 | Outpatient (CLI) | payer MEDICAID ==
--- NOTE | 2020-11-23 12:54 | Diagnostic Imaging Report ---
INDICATION: survey. TECHNIQUE: Multiple real-time grayscale images were obtained over the gravid uterus. COMPARISON: None FINDINGS: There is a single live fetus in a cephalic presentation. heart rate was recorded at 140 bpm. Placenta is posterior. Amniotic fluid volume appears normal. Cervical length is approximately 3.5 cm. survey demonstrates kidneys, bladder and stomach to be unremarkable. brain is unremarkable. There is a four-chamber heart. There is a three-vessel cord with normal insertion. spine evaluation is suboptimal due to positioning. Biometrical measurements are as follows: Biparietal 4.72 cm, age 20 weeks 2 days. Head circumference 17.91 cm, age 20 weeks 3 days. Abdominal circumference 14.88 cm, age 20 weeks 1 days. Femur length 3.22 cm, age 20 weeks 1 days. Sonographic estimate age: 20 weeks 2 days. Sonographic estimated date of delivery: 04/10/2021. Estimated Weight: 334 gm (+/- 49 gm). LMP percentile: 69%. heart rate: 140 beats per minute. number: 1 of 1. IMPRESSION: Single live IUP 20 weeks 2 days gestational age. Estimated date of confinement sonographically is 04/10/2021. Dictated by: Dictated on workstation # [id number]
== END ==
LOC: RAD 10:04
PROVIDERS: ATTEND Nurse Practitioner Women's Health
DX: Z34.02 Encounter for supervision of normal first pregnancy, second trimester (principal); Z3A.20 20 weeks gestation of pregnancy
CPT/HCPCS: 76805

== ENCOUNTER 2020-12-04 08:04 | Outpatient (CLI) | payer MEDICAID ==
[~2020-12-04] VITALS: Ht 165.1 cm; Wt 68.5 kg
[2020-12-04] MEDS ORDERED: D5 LR IV SOLUTION 1,000 ML IV ONE (08:35)
[2020-12-04] MEDS ORDERED: ONDANSETRON 4 MG/2 ML (SDV) Z0FRAN ONE (08:35)
[2020-12-04] MEDS ORDERED: PROMETHAZINE INJ 25 MG/ML (PHENERGAN) AMP ONE (08:36)
[2020-12-04 08:39] LABS: CLARITY,URINE CLEAR; COLOR,URINE YELLOW; GLUCOSE, URINE (UA) NEGATIVE (NEGATIVE); KETONES,URINE 2+ (NEGATIVE); LEUKOCYTE ESTERASE ,URINE NEGATIVE (NEGATIVE); NITRITE,URINE NEGATIVE (NEGATIVE); PROTEIN,URINE 1+ (NEGATIVE)
[2020-12-04 08:45] VITALS: BP 109/62
[2020-12-04] MEDS ORDERED: ONDANSETRON 4 MG/2 ML (SDV) Z0FRAN IVP PRN (08:45)
[2020-12-04] MEDS ORDERED: PROMETHAZINE INJ 25 MG/ML (PHENERGAN) AMP IVP PRN (08:45)
[2020-12-04] MEDS ORDERED: D5 LR IV SOLUTION 1,000 ML IV SCH (08:45)
[2020-12-04 08:48] LABS: BACTERIA,URINE FEW /HPF
[2020-12-04 09:14] LABS: BASOPHILS % (AUTO) 0 % (0-10); EOSINOPHILS % (AUTO) 0 % (0-10); HEMATOCRIT 36 % (35-52); HEMOGLOBIN 11.6 g/dL (11.5-16.0); LYMPHOCYTES # (AUTO) 1.3 10^3/uL (1.0-4.0); LYMPHOCYTES % (AUTO) 8 % (12-44); MEAN CORPUSCULAR HEMOGLOBIN 31 pg (25-34); MEAN CORPUSCULAR HGB CONC 32 g/dL (32-36); MEAN CORPUSCULAR VOLUME 97 fL (80-99); MEAN PLATELET VOLUME 11.9 fL (9.0-12.2); MONOCYTES # (AUTO) 0.4 10^3/uL (0.0-1.0); MONOCYTES % (AUTO) 3 % (0-12); NEUTROPHILS # (AUTO) 13.3 10^3/uL (1.8-7.8); NEUTROPHILS % (AUTO) 87 % (42-75); PLATELET COUNT 210 10^3/uL (130-400); WHITE BLOOD COUNT 15.3 10^3/uL (4.3-11.0)
[2020-12-04 09:30] VITALS: BP 113/73
[2020-12-04 09:38] LABS: ALANINE AMINOTRANSFERASE 7 U/L (0-55); ALBUMIN 3.3 GM/DL (3.2-4.5); ALKALINE PHOSPHATASE 62 U/L (40-136); BILIRUBIN,TOTAL 0.2 MG/DL (0.1-1.0); BUN/CREATININE RATIO 8; CALCIUM 8.5 MG/DL (8.5-10.1); CARBON DIOXIDE 23 MMOL/L (21-32); CHLORIDE 105 MMOL/L (98-107); CREATININE SERUM 0.66 MG/DL (0.60-1.30); GFR ESTIMATED > 60; GLUCOSE 93 MG/DL (70-105); POTASSIUM 4.6 MMOL/L (3.6-5.0); SODIUM 136 MMOL/L (135-145); TOTAL PROTEIN 6.5 GM/DL (6.4-8.2)
[2020-12-04 10:07] LABS: ANISOCYTOSIS SLIGHT; BAND NEUTROPHILS 1 %; BASOPHILS % (MANUAL) 0 %; EOSINOPHILS % (MANUAL) 0 %; LYMPHOCYTES % (MANUAL) 7 %; METAMYELOCYTES % 1 %; MONOCYTES % (MANUAL) 2 %; NEUTROPHILS % (MANUAL) 89 %
[2020-12-04 11:36] LABS: BILIRUBIN,URINE 1+ (NEGATIVE)
--- NOTE | 2020-12-05 07:47 | Physician Query-Final Dx ---
KEITH UNDERWOOD 12/05/20 0747: Clinic Account Progress/Dx Physician Query: Please give diagnosis Please include # weeks gestation Date of Service December 04, 2020 at 08:04 KANWAL JJ DO 12/06/20 0706: Clinic Account Progress/Dx DIAGNOSIS: Diagnosis 20 week gestation Nausea vomiting dehydration hyperemesis KEITH UNDERWOOD December 05, 2020 07:47 KANWAL JJ DO December 06, 2020 07:06
== END 2020-12-04 12:12 | disposition home or self-care (01) ==
LOC: WSo 08:04 → LDRP 08:07 → WSo 12:12
PROVIDERS: ATTEND Obstetrics & Gynecology
DX: O26.892 Other specified pregnancy related conditions, second trimester (principal); Z3A.21 21 weeks gestation of pregnancy
CPT/HCPCS: 80053; 81000; 85007; 85027; 96361; 96374; 96375; G0463; 36415; 99213

== ENCOUNTER 2021-01-31 19:59 | Outpatient (CLI) | payer MEDICAID ==
[~2021-01-31] VITALS: Ht 165.1 cm; Wt 71.2 kg
[2021-01-31] MEDS ORDERED: D5 LR IV SOLUTION 1,000 ML IV SCH (20:30)
[2021-01-31] MEDS ORDERED: ONDANSETRON 4 MG/2 ML (SDV) Z0FRAN IVP ONE ×2 (20:45→22:45)
[2021-01-31] MEDS ORDERED: ONDANSETRON 4 MG/2 ML (SDV) Z0FRAN ONE ×2 (20:48→22:52)
[2021-01-31] MEDS ORDERED: D5 LR IV SOLUTION 1,000 ML IV ONE (20:56)
[2021-01-31 21:29] VITALS: BP 126/76
[2021-01-31 21:36] VITALS: BP 126/76
[2021-01-31] MEDS ORDERED: PROMETHAZINE 25 MG (PHENERGAN) SUPP PR ONE (22:45)
[2021-01-31] MEDS: D5 LR IV SOLUTION 1,000 ML IV SCH (23:14)
[2021-01-31 23:43] LABS: BASOPHILS % (AUTO) 0 % (0-10); EOSINOPHILS # (AUTO) 0.1 10^3/uL (0.0-0.3); EOSINOPHILS % (AUTO) 1 % (0-10); HEMATOCRIT 31 % (35-52); HEMOGLOBIN 9.4 g/dL (11.5-16.0); LYMPHOCYTES # (AUTO) 2.3 10^3/uL (1.0-4.0); LYMPHOCYTES % (AUTO) 16 % (12-44); MEAN CORPUSCULAR HEMOGLOBIN 28 pg (25-34); MEAN CORPUSCULAR HGB CONC 31 g/dL (32-36); MEAN CORPUSCULAR VOLUME 92 fL (80-99); MEAN PLATELET VOLUME 11.6 fL (9.0-12.2); MONOCYTES # (AUTO) 0.6 10^3/uL (0.0-1.0); MONOCYTES % (AUTO) 4 % (0-12); NEUTROPHILS # (AUTO) 11.5 10^3/uL (1.8-7.8); NEUTROPHILS % (AUTO) 78 % (42-75); PLATELET COUNT 190 10^3/uL (130-400); WHITE BLOOD COUNT 14.8 10^3/uL (4.3-11.0)
[2021-01-31 23:56] LABS: EOSINOPHILS % (MANUAL) 1 %; LYMPHOCYTES % (MANUAL) 18 %; MONOCYTES % (MANUAL) 4 %; NEUTROPHILS % (MANUAL) 77 %; RBC MORPH NORMAL
[2021-02-01 00:09] LABS: POTASSIUM 3.3 MMOL/L (3.6-5.0)
[2021-02-01 00:10] LABS: CALCIUM 7.8 MG/DL (8.5-10.1)
[2021-02-01 00:13] LABS: BILIRUBIN,TOTAL 0.2 MG/DL (0.1-1.0)
[2021-02-01 00:15] LABS: CREATININE SERUM 0.6 MG/DL (0.60-1.30)
[2021-02-01 00:30] VITALS: BP 112/74
[2021-02-01] MEDS ORDERED: methylPREDNISolone 40 MG/ML (Solu-MEDROL) VIAL IV ONE (02:30)
[2021-02-01] MEDS ORDERED: METOCLOPRAMIDE INJ 10 MG/2 ML (REGLAN) IVP ONE (02:30)
[2021-02-01] MEDS ORDERED: PROMETHAZINE 25 MG (PHENERGAN) SUPP PR ONE (02:30)
[2021-02-01] MEDS ORDERED: methylPREDNISolone 40 MG/ML (Solu-MEDROL) VIAL ONE (02:37)
[2021-02-01] MEDS: D5 LR IV SOLUTION 1,000 ML IV SCH (03:28)
[2021-02-01 06:46] VITALS: BP 120/70
[2021-02-01 07:15] VITALS: BP 121/65
--- NOTE | 2021-02-01 08:57 | Physician Query-Final Dx ---
KEITH UNDERWOOD 02/01/21 0857: Clinic Account Progress/Dx Physician Query: Please give diagnosis Please include # weeks gestation Date of Service Jan 31, 2021 at 19:59 EROS BHAKTA MD 02/02/21 1242: Clinic Account Progress/Dx DIAGNOSIS: Diagnosis 29 weeks gestation with hyperemesis gravidarum KEITH UNDERWOOD Feb 01, 2021 08:57 EROS BHAKTA MD Feb 02, 2021 12:42
== END 2021-02-01 07:45 | disposition home or self-care (01) ==
LOC: WSo 19:59 → LDRP 20:00 → WSo 02-01 07:45
PROVIDERS: ATTEND Obstetrics & Gynecology
DX: O21.9 Vomiting of pregnancy, unspecified (principal); Z3A.00 Weeks of gestation of pregnancy not specified
CPT/HCPCS: 36415; 80053; 85007; 85027; 96361; 96374; 96375; 96376

== ENCOUNTER 2021-02-03 21:08 | Outpatient (CLI) | payer MEDICAID ==
[~2021-02-03] VITALS: Ht 165.1 cm; Wt 71.2 kg
[2021-02-03 21:23] VITALS: BP 121/74
[2021-02-03 21:34] LABS: BILIRUBIN,URINE NEGATIVE (NEGATIVE); CLARITY,URINE SL CLOUDY; COLOR,URINE YELLOW; GLUCOSE, URINE (UA) NEGATIVE (NEGATIVE); KETONES,URINE 2+ (NEGATIVE); LEUKOCYTE ESTERASE ,URINE NEGATIVE (NEGATIVE); NITRITE,URINE NEGATIVE (NEGATIVE); PROTEIN,URINE NEGATIVE (NEGATIVE)
[2021-02-03 21:46] LABS: BACTERIA,URINE NEGATIVE /HPF; WBC,URINE 0-2 /HPF
[2021-02-03] MEDS ORDERED: NS IV 1000 ML 1,000 ML ONE (22:00)
[2021-02-03] MEDS ORDERED: NS IV 1000 ML 1,000 ML IV SCH (22:00)
[2021-02-03] MEDS ORDERED: PROCHLORPERAZINE 10 MG/2ML INJ (COMPAZINE) IV ONE (22:00)
[2021-02-03 22:45] LABS: ALBUMIN 2.8 GM/DL (3.2-4.5); POTASSIUM 2.9 MMOL/L (3.6-5.0)
[2021-02-03 22:46] LABS: CALCIUM 8.2 MG/DL (8.5-10.1)
[2021-02-03 22:47] LABS: TOTAL PROTEIN 5.7 GM/DL (6.4-8.2)
[2021-02-03 22:49] LABS: BILIRUBIN,TOTAL 0.2 MG/DL (0.1-1.0)
[2021-02-03 22:51] LABS: CREATININE SERUM 0.65 MG/DL (0.60-1.30)
[2021-02-04] MEDS ORDERED: D5 1/2 NS W/KCL 40 MEQ/L 1,000 ML IV ONE ×2 (01:39→01:45)
[2021-02-04] MEDS ORDERED: ONDANSETRON 4 MG/2 ML (SDV) Z0FRAN IVP PRN (01:45)
[2021-02-04] MEDS ORDERED: PROCHLORPERAZINE 10 MG/2ML INJ (COMPAZINE) IV PRN (01:45)
[2021-02-04] MEDS ORDERED: KCL 20 MEQ TAB (K-DUR) PO ONE ×2 (02:10)
--- NOTE | 2021-02-04 06:25 | History & Physical-OB ---
OB - Chief Complaint & HPI Date/Time Date of Admission: Date of Admission: 02/03/21 Date seen by a Provider: Feb 04, 2021 Time Seen by a Provider: 06:30 Chief Complaint/History OB-Reason for Admission/Chief: nausea/vomiting/hypokalemia Hx : 5 Hx Para: 3 Expected Date of Delivery: Apr 14, 2021 Gestational Age in Weeks: 30 Gestational Age in Days: 0 Admission Nurse Assessment Rev: Yes Allergies and Home Medications Allergies Coded Allergies: tramadol (Verified Allergy, Unknown, RASH, 04/27/16) Home Medications Ondansetron 4 Mg Tab.rapdis, 4 MG PO Q4H PRN for NAUSEA/VOMITING-1ST LINE, (Reported) Vit W-Ca,Fe,FA(<1 mg) 1 Each Tablet, 1 EACH PO DAILY, (Reported) Promethazine HCl 25 Mg Tablet, 25 MG PO Q6H PRN for NAUSEA/VOMITING Prescribed by: SANDOVAL LOPEZ on 11/06/20 1218 OB - History Hx of Present Care: Yes Obstetrical History Hx : 5 Hx Para: 3 Hx Termination: No Hx Total # of Abortions (Spona: 1 Hx Multiple Gestation: No Hx Stillbirth: No Hx Complication: No Hx Induced Hypertens: No Hx Maternal Gestational Diabet: No Delivery History Hx Dystocia: No Hx Large For Gestational Age I: No Hx Small for Gestational Age I: No Hx Section: No Hx Vaginal Delivery Post C-Sec: No Hx Blood Disorders: No Adverse Rxn to Tranfusion: No Patient Past Medical History Remote hx of seizures Social History/Family History Alcohol Use: Denies Use Recreational Drug Use: Yes (Marijuana - pt reports last using in June (not correct, positive 11/01)) 2nd Hand Smoke Exposure: No Immunizations Tetanus Booster (TDap): Unknown OB - Admission Exam Physical Exam Vitals: Vital Signs Labs Laboratory Tests Test 02/03/21 21:25 02/03/21 22:00 Range/Units Urine Color YELLOW Urine Clarity SL CLOUDY Urine pH 6.0 5-9 Urine Specific [place] >=1.030 1.016-1.022 Urine Protein NEGATIVE NEGATIVE Urine Glucose (UA) NEGATIVE NEGATIVE Urine Ketones 2+ H NEGATIVE Urine Nitrite NEGATIVE NEGATIVE Urine Bilirubin NEGATIVE NEGATIVE Urine Urobilinogen 0.2 < = 1.0 MG/DL Urine Leukocyte Esterase NEGATIVE NEGATIVE Urine RBC (Auto) NEGATIVE NEGATIVE Urine RBC 2-5 H /HPF Urine WBC 0-2 /HPF Urine Squamous Epithelial Cells 5-10 /HPF Urine Renal Epithelial Cells NONE /HPF Urine Crystals NONE /LPF Urine Bacteria NEGATIVE /HPF Urine Casts NONE /LPF Urine Mucus NEGATIVE /LPF Urine Culture Indicated NO Sodium Level 139 135-145 MMOL/L Potassium Level 2.9 L 3.6-5.0 MMOL/L Chloride Level 107 98-107 MMOL/L Carbon Dioxide Level 19 L 21-32 MMOL/L Anion Gap 13 5-14 MMOL/L Blood Urea Nitrogen 5 L 7-18 MG/DL Creatinine 0.65 0.60-1.30 MG/DL Estimat Glomerular Filtration Rate 106 BUN/Creatinine Ratio 8 Glucose Level 96 70-105 MG/DL Calcium Level 8.2 L 8.5-10.1 MG/DL Corrected Calcium 9.2 8.5-10.1 MG/DL Total Bilirubin 0.2 0.1-1.0 MG/DL Aspartate Amino Transf (AST/SGOT) 9 5-34 U/L Alanine Aminotransferase (ALT/SGPT) 7 0-55 U/L Alkaline Phosphatase 90 40-136 U/L Total Protein 5.7 L 6.4-8.2 GM/DL Albumin 2.8 L 3.2-4.5 GM/DL KANWAL JJ DO Feb 04, 2021 06:25
[2021-02-04] MEDS ORDERED: KCL 20 MEQ TAB (K-DUR) PO SCH (07:00)
[2021-02-04] MEDS ORDERED: ANTACID SUSP 30 ML UDC (MYLANTA) PO PRN (07:15)
[2021-02-04] MEDS ORDERED: D5 1/2 NS W/KCL 40 MEQ/L 1,000 ML IV SCH (07:15)
[2021-02-04] MEDS ORDERED: FAMO-119 PO (07:18)
[2021-02-04] MEDS ORDERED: PROC25SU27 RC (07:18)
[2021-02-04] MEDS ORDERED: POTA10TA36 PO (07:18)
[2021-02-04] MEDS ORDERED: MTC10T PO (07:18)
[2021-02-04 07:22] LABS: POTASSIUM 3.6 MMOL/L (3.6-5.0)
[2021-02-04 07:23] LABS: CALCIUM 7.1 MG/DL (8.5-10.1)
[2021-02-04 07:28] LABS: CREATININE SERUM 0.57 MG/DL (0.60-1.30)
[2021-02-04 08:09] VITALS: BP 118/77
[2021-02-04] MEDS ORDERED: FAMOTIDINE 20MG/2ML IV (PEPCID) IVP SCH (09:00)
[2021-02-05] MEDS ORDERED: KCL 20 MEQ TAB (K-DUR) PO ONE (01:45)
[2021-02-06] MEDS ORDERED: PANT40SU PO (17:28)
[2021-02-06] MEDS ORDERED: PANT40TA2 PO (17:33)
[2021-02-07] MEDS ORDERED: LORA-404 PO (06:54)
== END 2021-02-04 10:08 | disposition home or self-care (01) ==
LOC: WSo 21:08 → LDRP 21:08 → WSo 02-04 10:08
PROVIDERS: ATTEND Obstetrics & Gynecology
DX: O21.9 Vomiting of pregnancy, unspecified (principal); Z3A.30 30 weeks gestation of pregnancy
CPT/HCPCS: 36415; 80048; 80053; 81000; 93005; 96361; 96374; 96375; 96376; 99211; G0378

== ENCOUNTER 2021-02-06 12:19 | Outpatient (CLI) | payer MEDICAID ==
[~2021-02-06] VITALS: Ht 165.1 cm; Wt 71.8 kg
[~2021-02-06 12:19] MED LIST changes: +MTC10T PO; +POTA10TA36 PO; +PROC25SU27 RC
[2021-02-06 12:54] VITALS: BP 137/84
[2021-02-06 13:00] VITALS: BP 137/84
[2021-02-06] MEDS ORDERED: SCOPOLAMINE 1.5 MG (TRANSDERM-SCOP) PATCH TD ONE (13:15)
[2021-02-06] MEDS ORDERED: ANTACID SUSP 30 ML UDC (MYLANTA) PO ONE (13:15)
[2021-02-06] MEDS ORDERED: LACTATED RINGERS 1,000 ML IV SCH ×2 (13:15→15:00)
[2021-02-06] MEDS ORDERED: PROCHLORPERAZINE 10 MG/2ML INJ (COMPAZINE) IV ONE (13:15)
[2021-02-06 13:30] VITALS: BP 137/84
[2021-02-06 14:10] VITALS: BP 122/75
[2021-02-06] MEDS ORDERED: PANTOPRAZOLE 40 MG (PROTONIX) VIAL IV ONE (15:00)
[2021-02-06 15:39] VITALS: BP 114/72
[2021-02-06] MEDS ORDERED: PANT40SU PO ×2 (17:28)
[2021-02-06] MEDS ORDERED: PANT40TA2 PO ×2 (17:33)
[2021-02-06 17:50] VITALS: BP 114/72
[2021-02-07] MEDS ORDERED: LORA-404 PO ×2 (06:54)
--- NOTE | 2021-02-07 09:55 | Physician Query-Final Dx ---
Clinic Account Progress/Dx Physician Query: Please give diagnosis Please include # weeks gestation Date of Service Feb 06, 2021 at 12:19 KEITH UNDERWOOD Feb 07, 2021 09:55
== END 2021-02-06 17:50 | disposition home or self-care (01) ==
LOC: WSo 12:19 → LDRP 12:21 → WSo 17:50
PROVIDERS: ATTEND Obstetrics & Gynecology
DX: Z34.90 Encounter for supervision of normal pregnancy, unspecified, unspecified trimester (principal); Z3A.00 Weeks of gestation of pregnancy not specified
CPT/HCPCS: 36415; 80306; 81000; 83880; 96361; 96374; 96375; 99213

== ENCOUNTER 2021-02-06 20:27 | Outpatient (CLI) | payer MEDICAID ==
[~2021-02-06 20:27] MED LIST changes: +PANT40SU PO; +PANT40TA2 PO
[2021-02-06] MEDS ORDERED: PROCHLORPERAZINE 10 MG TAB (COMPAZINE) PO PRN (21:15)
[2021-02-06] MEDS ORDERED: LORazepam 1 MG (ATIVAN) TAB PO ONE (21:15)
[2021-02-06] MEDS ORDERED: ACETAMINOPHEN 500 MG TAB (TYLENOL) PO PRN (21:15)
[2021-02-06] MEDS ORDERED: ACETAMINOPHEN 500 MG TAB (TYLENOL) ONE (21:19)
[2021-02-07] MEDS ORDERED: LORA-404 PO ×2 (06:54)
[2021-02-07 07:09] VITALS: BP 127/39
--- NOTE | 2021-02-07 09:56 | Physician Query-Final Dx ---
Clinic Account Progress/Dx Physician Query: Please give diagnosis Please include # weeks gestation Date of Service Feb 06, 2021 at 20:27 KEITH UNDERWOOD Feb 07, 2021 09:56
== END 2021-02-07 07:05 | disposition home or self-care (01) ==
LOC: LDRP 20:27 → WSo 20:27
PROVIDERS: ATTEND Obstetrics & Gynecology
DX: O21.9 Vomiting of pregnancy, unspecified (principal); Z3A.30 30 weeks gestation of pregnancy

== ENCOUNTER 2021-02-09 19:57 | Outpatient (CLI) | payer MEDICAID ==
[~2021-02-09] VITALS: Ht 165.1 cm; Wt 71.8 kg
[~2021-02-09 19:57] MED LIST changes: +LORA-404 PO
[2021-02-09 20:11] VITALS: BP 127/79
[2021-02-09 20:35] LABS: BILIRUBIN,URINE NEGATIVE (NEGATIVE); CLARITY,URINE CLEAR; COLOR,URINE YELLOW; GLUCOSE, URINE (UA) NEGATIVE (NEGATIVE); KETONES,URINE NEGATIVE (NEGATIVE); LEUKOCYTE ESTERASE ,URINE 2+ (NEGATIVE); NITRITE,URINE NEGATIVE (NEGATIVE); PROTEIN,URINE NEGATIVE (NEGATIVE)
[2021-02-09 21:13] LABS: AMORPHOUS SEDIMENT,UR FEW AMOR URATES /LPF; BACTERIA,URINE NEGATIVE /HPF
== END 2021-02-09 21:35 | disposition home or self-care (01) ==
LOC: LDRP 19:57 → WSo 19:57
PROVIDERS: ATTEND Obstetrics & Gynecology
DX: O26.893 Other specified pregnancy related conditions, third trimester (principal); R10.9 Unspecified abdominal pain; Z3A.30 30 weeks gestation of pregnancy
CPT/HCPCS: 81000; 99212

== ENCOUNTER 2021-02-18 17:59 | Outpatient (CLI) | payer MEDICAID ==
[~2021-02-18] VITALS: Ht 165.1 cm; Wt 71.7 kg
[2021-02-18 18:15] VITALS: BP 135/80
[2021-02-18 18:20] LABS: BILIRUBIN,URINE NEGATIVE (NEGATIVE); CLARITY,URINE CLEAR; COLOR,URINE YELLOW; GLUCOSE, URINE (UA) NEGATIVE (NEGATIVE); KETONES,URINE 3+ (NEGATIVE); LEUKOCYTE ESTERASE ,URINE TRACE (NEGATIVE); NITRITE,URINE NEGATIVE (NEGATIVE); PH,URINE 6.5 (5-9); PROTEIN,URINE NEGATIVE (NEGATIVE)
[2021-02-18 18:25] VITALS: BP 135/80
[2021-02-18 18:33] LABS: BACTERIA,URINE NEGATIVE /HPF; WBC,URINE RARE /HPF
[2021-02-18] MEDS ORDERED: AMOX500C2 PO (18:35)
[2021-02-18] MEDS ORDERED: FERR-65 PO (18:35)
[2021-02-18] MEDS ORDERED: PHENERGAN SUPPOS RC (18:35)
[2021-02-18] MEDS ORDERED: LACTATED RINGERS 1,000 ML IV SCH (18:45)
[2021-02-18] MEDS ORDERED: ONDANSETRON 4 MG/2 ML (SDV) Z0FRAN IVP ONE (18:45)
[2021-02-18 18:55] LABS: ALBUMIN 2.9 GM/DL (3.2-4.5); POTASSIUM 3.3 MMOL/L (3.6-5.0)
[2021-02-18 18:57] LABS: CALCIUM 8.2 MG/DL (8.5-10.1)
[2021-02-18 18:58] LABS: TOTAL PROTEIN 5.6 GM/DL (6.4-8.2)
[2021-02-18 19:00] LABS: BILIRUBIN,TOTAL 0.4 MG/DL (0.1-1.0)
[2021-02-18 19:01] LABS: CREATININE SERUM 0.61 MG/DL (0.60-1.30)
[2021-02-18] MEDS ORDERED: D5 1/2 NS W/KCL 20 MEQ/L 1,000 ML IV SCH (19:45)
[2021-02-18 20:07] VITALS: BP 134/80
--- NOTE | 2021-02-19 08:16 | Physician Query-Final Dx ---
Clinic Account Progress/Dx Physician Query: Please give diagnosis Please include # weeks gestation Date of Service Feb 18, 2021 at 17:59 KEITH UNDERWOOD Feb 19, 2021 08:16
== END 2021-02-18 23:00 | disposition home or self-care (01) ==
LOC: WSo 17:59 → LDRP 18:01 → WSo 23:00
PROVIDERS: ATTEND Obstetrics & Gynecology
DX: O21.2 Late vomiting of pregnancy (principal); Z3A.32 32 weeks gestation of pregnancy
CPT/HCPCS: 36415; 80053; 81000; 96361; 96374; 96375; 99213

== ENCOUNTER 2021-02-20 11:51 | Outpatient (CLI) | payer MEDICAID ==
[~2021-02-20] VITALS: Ht 165.1 cm; Wt 71.2 kg
[~2021-02-20 11:51] MED LIST changes: +AMOX500C2 PO; +FERR-65 PO; +PHENERGAN SUPPOS RC
[2021-02-20 12:07] VITALS: BP 124/73
[2021-02-20 12:19] LABS: CLARITY,URINE CLOUDY; COLOR,URINE YELLOW; GLUCOSE, URINE (UA) NEGATIVE (NEGATIVE); KETONES,URINE 2+ (NEGATIVE); LEUKOCYTE ESTERASE ,URINE 3+ (NEGATIVE); NITRITE,URINE NEGATIVE (NEGATIVE); PROTEIN,URINE TRACE (NEGATIVE)
[2021-02-20 12:42] VITALS: BP 124/73
[2021-02-20 12:57] LABS: BILIRUBIN,URINE 1+ (NEGATIVE)
[2021-02-20 12:58] LABS: BACTERIA,URINE LARGE /HPF; SQUAMOUS EPITHELIAL CELL,UR TNTC /HPF; WBC,URINE 50-100 /HPF
[2021-02-20 13:40] LABS: BILIRUBIN,URINE NEGATIVE (NEGATIVE); CLARITY,URINE CLEAR; COLOR,URINE YELLOW; GLUCOSE, URINE (UA) NEGATIVE (NEGATIVE); KETONES,URINE 3+ (NEGATIVE); LEUKOCYTE ESTERASE ,URINE NEGATIVE (NEGATIVE); NITRITE,URINE NEGATIVE (NEGATIVE); PROTEIN,URINE TRACE (NEGATIVE)
[2021-02-20 13:54] LABS: BACTERIA,URINE FEW /HPF
--- NOTE | 2021-02-21 07:45 | Physician Query-Final Dx ---
Clinic Account Progress/Dx Physician Query: Please give diagnosis Please include # weeks gestation Date of Service Feb 20, 2021 at 11:51 KEITH UNDERWOOD Feb 21, 2021 07:45
== END 2021-02-20 14:35 | disposition home or self-care (01) ==
LOC: WSo 11:51 → LDRP 11:52 → WSo 14:35
PROVIDERS: ATTEND Obstetrics & Gynecology
DX: Z34.90 Encounter for supervision of normal pregnancy, unspecified, unspecified trimester (principal); Z3A.00 Weeks of gestation of pregnancy not specified
CPT/HCPCS: 81000; 87077; 87088; G0463; 87186; 99213

== ENCOUNTER 2021-02-25 19:10 | Outpatient (CLI) | payer MEDICAID ==
[~2021-02-25] VITALS: Ht 165.1 cm; Wt 71.8 kg
[2021-02-25 19:30] VITALS: BP 138/83
[2021-02-25 19:35] LABS: BILIRUBIN,URINE NEGATIVE (NEGATIVE); CLARITY,URINE CLEAR; COLOR,URINE YELLOW; GLUCOSE, URINE (UA) NEGATIVE (NEGATIVE); KETONES,URINE 1+ (NEGATIVE); LEUKOCYTE ESTERASE ,URINE NEGATIVE (NEGATIVE); NITRITE,URINE NEGATIVE (NEGATIVE); PROTEIN,URINE TRACE (NEGATIVE)
[2021-02-25 19:36] VITALS: BP 138/83
[2021-02-25 19:38] VITALS: BP 138/83
[2021-02-25 19:51] LABS: BACTERIA,URINE FEW /HPF; CALCIUM OXALATE CRYSTALS,UR LARGE /LPF; WBC,URINE 0-2 /HPF
--- NOTE | 2021-02-26 08:13 | Physician Query-Final Dx ---
KEITH UNDERWOOD 02/26/21 0813: Clinic Account Progress/Dx Physician Query: Please give diagnosis Please include # weeks gestation Date of Service Feb 25, 2021 at 19:10 DONTA ELKINS DO 02/26/21 0844: Clinic Account Progress/Dx DIAGNOSIS: Diagnosis 32 week IUP Nausea/ vomitting Headache KEITH UNDERWOOD Feb 26, 2021 08:13 DONTA ELKINS DO Feb 26, 2021 08:44
== END 2021-02-25 20:54 ==
LOC: WSo 19:10
PROVIDERS: ATTEND Obstetrics & Gynecology
DX: O26.893 Other specified pregnancy related conditions, third trimester (principal); R11.2 Nausea with vomiting, unspecified; R51.9 Headache, unspecified; Z3A.32 32 weeks gestation of pregnancy
CPT/HCPCS: 81000; 87088; G0463; 99212

== ENCOUNTER → 2021-03-29 | Outpatient (CLI) | payer MEDICAID | LOC: LABNPT 11:10 | PROVIDERS: ATTEND Obstetrics & Gynecology | DX: O13.9 Gestational [pregnancy-induced] hypertension without significant proteinuria, unspecified trimester (principal); Z3A.00 Weeks of gestation of pregnancy not specified | CPT/HCPCS: 82570; 84156 ==

== ENCOUNTER 2021-03-30 08:45 | Outpatient (CLI) | payer MEDICAID ==
[~2021-03-30] VITALS: Ht 165 cm; Wt 71.9 kg
[2021-03-30 09:30] VITALS: BP 123/83
[2021-03-30] MEDS ORDERED: D5 LR IV SOLUTION 1,000 ML IV ONE (09:43)
[2021-03-30 10:15] VITALS: BP 119/73
[2021-03-30] MEDS ORDERED: D5 LR IV SOLUTION 1,000 ML IV SCH (10:30)
[2021-03-30 10:34] LABS: BASOPHILS % (AUTO) 0 % (0-10); EOSINOPHILS # (AUTO) 0.1 10^3/uL (0.0-0.3); EOSINOPHILS % (AUTO) 1 % (0-10); HEMATOCRIT 36 % (35-52); HEMOGLOBIN 11.2 g/dL (11.5-16.0); LYMPHOCYTES # (AUTO) 1.7 10^3/uL (1.0-4.0); LYMPHOCYTES % (AUTO) 14 % (12-44); MEAN CORPUSCULAR HEMOGLOBIN 30 pg (25-34); MEAN CORPUSCULAR HGB CONC 31 g/dL (32-36); MEAN CORPUSCULAR VOLUME 97 fL (80-99); MEAN PLATELET VOLUME 12.3 fL (9.0-12.2); MONOCYTES # (AUTO) 0.4 10^3/uL (0.0-1.0); MONOCYTES % (AUTO) 3 % (0-12); NEUTROPHILS # (AUTO) 9.6 10^3/uL (1.8-7.8); NEUTROPHILS % (AUTO) 80 % (42-75); PLATELET COUNT 268 10^3/uL (130-400); WHITE BLOOD COUNT 11.9 10^3/uL (4.3-11.0)
[2021-03-30 10:38] LABS: ALBUMIN 2.9 GM/DL (3.2-4.5)
[2021-03-30 10:39] LABS: POTASSIUM 3.4 MMOL/L (3.6-5.0)
[2021-03-30 10:40] LABS: CALCIUM 8.5 MG/DL (8.5-10.1)
[2021-03-30 10:41] LABS: TOTAL PROTEIN 5.7 GM/DL (6.4-8.2)
[2021-03-30 10:43] LABS: BILIRUBIN,TOTAL 0.4 MG/DL (0.1-1.0)
[2021-03-30 10:45] LABS: CREATININE SERUM 0.63 MG/DL (0.60-1.30)
[2021-03-30 10:48] LABS: URIC ACID 3.5 MG/DL (2.6-7.2)
--- NOTE | 2021-04-02 08:50 | Physician Query-Final Dx ---
KEITH UNDERWOOD 04/02/21 0850: Clinic Account Progress/Dx Physician Query: Please give diagnosis Please include # weeks gestation Date of Service Mar 30, 2021 at 08:45 EROS BHAKTA MD 04/02/21 1511: Clinic Account Progress/Dx DIAGNOSIS: Diagnosis 37 weeks gestation with false labor KEITH UNDERWOOD Apr 02, 2021 08:50 EROS BHAKTA MD Apr 02, 2021 15:11
== END 2021-03-30 13:45 | disposition home or self-care (01) ==
LOC: WSo 08:45 → LDRP 08:47 → WSo 13:45
PROVIDERS: ATTEND Obstetrics & Gynecology
DX: O62.9 Abnormality of forces of labor, unspecified (principal); Z3A.00 Weeks of gestation of pregnancy not specified
CPT/HCPCS: 80053; 82570; 83615; 84156; 84550; 85025; 86850; 86900; 86901; 96360; 96361; G0463; 36415; 99214

== ENCOUNTER 2021-04-01 05:17 | Outpatient (CLI) | payer MEDICAID ==
[2021-04-01] MEDS ORDERED: ONDANSETRON 4 MG/2 ML (SDV) Z0FRAN ONE (05:44)
[2021-04-01] MEDS ORDERED: D5 LR IV SOLUTION 1,000 ML IV ONE (05:44)
[2021-04-01] MEDS ORDERED: LOPERAMIDE 2 MG (IMODIUM) TABLET PO PRN (05:45)
[2021-04-01] MEDS ORDERED: LOPERAMIDE 2 MG (IMODIUM) TABLET PO ONE (05:45)
[2021-04-01] MEDS ORDERED: ONDANSETRON 4 MG/2 ML (SDV) Z0FRAN IVP ONE (05:45)
[2021-04-01] MEDS ORDERED: D5 LR IV SOLUTION 1,000 ML IV SCH ×2 (05:45→06:45)
[2021-04-01 05:52] LABS: BILIRUBIN,URINE NEGATIVE (NEGATIVE); CLARITY,URINE CLEAR; COLOR,URINE YELLOW; GLUCOSE, URINE (UA) NEGATIVE (NEGATIVE); KETONES,URINE NEGATIVE (NEGATIVE); LEUKOCYTE ESTERASE ,URINE TRACE (NEGATIVE); NITRITE,URINE NEGATIVE (NEGATIVE); PROTEIN,URINE NEGATIVE (NEGATIVE)
[2021-04-01 05:59] LABS: BACTERIA,URINE TRACE /HPF; WBC,URINE RARE /HPF
[2021-04-01 06:00] VITALS: BP 120/79
[2021-04-01 06:07] VITALS: BP 120/79
[2021-04-01 06:07] LABS: BASOPHILS % (AUTO) 0 % (0-10); EOSINOPHILS # (AUTO) 0.1 10^3/uL (0.0-0.3); EOSINOPHILS % (AUTO) 1 % (0-10); HEMATOCRIT 34 % (35-52); HEMOGLOBIN 10.7 g/dL (11.5-16.0); LYMPHOCYTES # (AUTO) 1.9 10^3/uL (1.0-4.0); LYMPHOCYTES % (AUTO) 16 % (12-44); MEAN CORPUSCULAR HEMOGLOBIN 31 pg (25-34); MEAN CORPUSCULAR HGB CONC 32 g/dL (32-36); MEAN CORPUSCULAR VOLUME 97 fL (80-99); MEAN PLATELET VOLUME 12.2 fL (9.0-12.2); MONOCYTES # (AUTO) 0.4 10^3/uL (0.0-1.0); MONOCYTES % (AUTO) 4 % (0-12); NEUTROPHILS # (AUTO) 9.3 10^3/uL (1.8-7.8); NEUTROPHILS % (AUTO) 78 % (42-75); PLATELET COUNT 239 10^3/uL (130-400); WHITE BLOOD COUNT 11.9 10^3/uL (4.3-11.0)
[2021-04-01] MEDS ORDERED: LOPERAMIDE 2 MG (IMODIUM) TABLET ONE (06:08)
[2021-04-01 06:16] LABS: ALBUMIN 2.9 GM/DL (3.2-4.5)
[2021-04-01 06:17] LABS: POTASSIUM 3.5 MMOL/L (3.6-5.0)
[2021-04-01 06:18] LABS: CALCIUM 8.3 MG/DL (8.5-10.1)
[2021-04-01 06:19] LABS: TOTAL PROTEIN 5.5 GM/DL (6.4-8.2)
[2021-04-01 06:21] LABS: BILIRUBIN,TOTAL 0.4 MG/DL (0.1-1.0)
[2021-04-01 06:23] LABS: CREATININE SERUM 0.65 MG/DL (0.60-1.30)
[2021-04-01 08:00] VITALS: BP 137/85
[2021-04-01 09:00] VITALS: BP 118/80
[2021-04-01 10:10] VITALS: BP 120/79
== END 2021-04-01 10:25 ==
LOC: WSo 05:17 → LDRP 05:18 → WSo 10:25
PROVIDERS: ATTEND Obstetrics & Gynecology
DX: O62.9 Abnormality of forces of labor, unspecified (principal); Z3A.00 Weeks of gestation of pregnancy not specified
CPT/HCPCS: 36415; 80053; 81000; 85025

== ENCOUNTER 2021-04-05 03:15 | Inpatient (IN) | payer MEDICAID ==
[2021-04-05] VITALS (19 sets, daily range): BP systolic 121–174; BP diastolic 70–98
[~2021-04-05] VITALS: Ht 165.1 cm; Wt 72.7 kg
[2021-04-05] MEDS ORDERED: D5 LR IV SOLUTION 1,000 ML IV ONE (03:35)
[2021-04-05] MEDS ORDERED: D5 LR IV SOLUTION 1,000 ML IV SCH (03:45)
[2021-04-05] MEDS ORDERED: HYDROmorphone 2 MG/ML VIAL (DILAUDID) IV ONE ×2 (04:15→07:30)
[2021-04-05] MEDS ORDERED: ONDANSETRON 4 MG/2 ML (SDV) Z0FRAN ONE (04:18)
[2021-04-05] MEDS ORDERED: HYDROmorphone 2 MG/ML VIAL (DILAUDID) ONE ×2 (04:18→07:24)
[2021-04-05] MEDS ORDERED: OXYTOCIN PRE-MIX DRIP 500 ML IV ONE (04:19)
[2021-04-05] MEDS: ONDANSETRON 4 MG/2 ML (SDV) Z0FRAN IVP PRN ×3 (04:21→14:57)
[2021-04-05 04:34] LABS: BASOPHILS % (AUTO) 0 % (0-10); EOSINOPHILS # (AUTO) 0.1 10^3/uL (0.0-0.3); EOSINOPHILS % (AUTO) 1 % (0-10); HEMATOCRIT 36 % (35-52); HEMOGLOBIN 11.5 g/dL (11.5-16.0); LYMPHOCYTES # (AUTO) 2.1 10^3/uL (1.0-4.0); LYMPHOCYTES % (AUTO) 18 % (12-44); MEAN CORPUSCULAR HEMOGLOBIN 31 pg (25-34); MEAN CORPUSCULAR HGB CONC 32 g/dL (32-36); MEAN CORPUSCULAR VOLUME 97 fL (80-99); MEAN PLATELET VOLUME 12.2 fL (9.0-12.2); MONOCYTES # (AUTO) 0.6 10^3/uL (0.0-1.0); MONOCYTES % (AUTO) 5 % (0-12); NEUTROPHILS % (AUTO) 75 % (42-75); PLATELET COUNT 263 10^3/uL (130-400); WHITE BLOOD COUNT 11.9 10^3/uL (4.3-11.0)
[2021-04-05] MEDS: CATHETER FLUSH 10 ML SYR IV SCH ×2 (07:59→14:57)
[2021-04-05] MEDS ORDERED: LIDOCAINE/EPI 2% 1:200,00 (XYLOCAINE) 20 ML VIAL ONE (08:36)
--- NOTE | 2021-04-05 08:37 | History & Physical-OB ---
OB - Chief Complaint & HPI Date/Time Date of Admission: Date of Admission: Apr 05, 2021 at 03:35 Date seen by a Provider: Apr 05, 2021 Time Seen by a Provider: 07:55 Chief Complaint/History OB-Reason for Admission/Chief: Onset of Labor Hx : 5 Hx Para: 3 Expected Date of Delivery: Apr 14, 2021 Gestational Age in Weeks: 38 Gestational Age in Days: 5 History of Labs A pos Antibody neg RI RPR NR HBsAg NR HIV NR GC neg GBS neg Allergies and Home Medications Allergies Coded Allergies: tramadol (Verified Allergy, Unknown, RASH, 04/27/16) Patient Home Medication List Home Medication List Reviewed: Yes Famotidine (Pepcid) 20 Mg Tablet, 20 MG PO BID Prescribed by: KANWAL JJ on 02/04/21717 Last Action: Reviewed Metoclopramide HCl (Metoclopramide HCl) 10 Mg Tablet, 10 MG PO Q6H Prescribed by: KANWAL JJ on 02/04/21717 Last Action: Reviewed Vit W-Ca,Fe,FA(<1 mg) ( Formula) 1 Each Tablet, 1 EACH PO DAILY, (Reported) Entered as Reported by: LYNDA MCNAIR on 11/03/20 0857 Last Action: Reviewed Discontinued Medications Ferrous Sulfate (Feosol) 325 Mg Tablet, 325 MG PO BID, (Reported) Discontinued Reason: No Longer Taking Entered as Reported by: ALY GARCÍA on 02/18/21 1835 Lorazepam (Ativan) 0.5 Mg Tablet, 0.5 MG PO once daily PRN for SLEEP Discontinued Reason: No Longer Taking Prescribed by: KANWAL JJ on 02/07/21 0654 Ondansetron (Ondansetron Odt) 4 Mg Tab.rapdis, 4 MG PO Q4H PRN for NAUSEA/VOMITING-1ST LINE, (Reported) Discontinued Reason: No Longer Taking Entered as Reported by: LYNDA MCNAIR on 11/03/20 0857 Pantoprazole Sodium (Protonix) 40 Mg Tablet.dr, 40 MG PO HS Discontinued Reason: No Longer Taking Prescribed by: RUFINA ROBBINS on 02/06/21 1733 Last Action: Discontinued Potassium Chloride (Potassium Chloride) 10 Meq Tab.er.prt, 10 MEQ PO DAILY Discontinued Reason: No Longer Taking Prescribed by: KANWAL JJ on 02/04/21717 Prochlorperazine Maleate (Compazine) 25 Mg Supp.rect, 25 MG RC Q6H Discontinued Reason: No Longer Taking Prescribed by: KANWAL JJ on 02/04/21717 Promethazine HCl (Promethazine Tablet) 25 Mg Tablet, 25 MG PO Q6H PRN for NAUSEA/VOMITING Discontinued Reason: No Longer Taking Prescribed by: SANDOVAL LOPEZ on 11/06/20 1218 [phenergan suppos] , RC Q6H, (Reported) Discontinued Reason: No Longer Taking Entered as Reported by: ALY GARCÍA on 02/18/21 1835 OB - History Hx of Present Care: Yes Ultrasounds: Normal mid trimester US Obstetrical Complications: Hyperemesis Medical Complications: Other (ICU admission for severe hyponatremia, and hypokalemia around 20 weeks) Obstetrical History Hx Termination: No Hx Multiple Gestation: No Hx Stillbirth: No Hx Complication: No Hx Induced Hypertens: No Hx Maternal Gestational Diabet: No Delivery History Hx Dystocia: No Hx Large For Gestational Age I: No Hx Small for Gestational Age I: No Hx Section: No Hx Vaginal Delivery Post C-Sec: No Hx Blood Disorders: No Adverse Rxn to Tranfusion: No Patient Past Medical History Remote hx of seizures Social History/Family History 2nd Hand Smoke Exposure: No Immunizations Tetanus Booster (TDap): Unknown OB - Admission Exam Physical Exam Vitals: Vital Signs 04/05/21 04/05/21 07:30 08:00 Temp 36.1 Pulse 97 Resp 18 B/P (MAP) 143/93 (110) Pulse Ox 99 O2 Delivery Room Air HEENT: NCAT Heart: Rhythm Normal Lungs: Clear Abdomen: Gravid Extremities: Normal Reflexes: Normal Cervical Dilatation: 4cm Effacement: 75% Station: -1 Membranes: Intact Heart Rate: 120's Accelerations: Accelerations Present Decelerations: No Decelerations Short Term Variability: Present Tactical Debriefer Officer Variability: Average (6-25) Contractions on Admission: < 5 Minutes Apart Intensity: Firm Labs Laboratory Tests Test 04/05/21 03:45 Range/Units White Blood Count 11.9 H 4.3-11.0 10^3/uL Red Blood Count 3.75 L 3.80-5.11 10^6/uL Hemoglobin 11.5 11.5-16.0 g/dL Hematocrit 36 35-52 % Mean Corpuscular Volume 97 80-99 fL Mean Corpuscular Hemoglobin 31 25-34 pg Mean Corpuscular Hemoglobin Concent 32 32-36 g/dL Red Cell Distribution Width 19.5 H 10.0-14.5 % Platelet Count 263 130-400 10^3/uL Mean Platelet Volume 12.2 9.0-12.2 fL Immature Granulocyte % (Auto) 1 % Neutrophils (%) (Auto) 75 42-75 % Lymphocytes (%) (Auto) 18 12-44 % Monocytes (%) (Auto) 5 0-12 % Eosinophils (%) (Auto) 1 0-10 % Basophils (%) (Auto) 0 0-10 % Neutrophils # (Auto) 9.0 H 1.8-7.8 10^3/uL Lymphocytes # (Auto) 2.1 1.0-4.0 10^3/uL Monocytes # (Auto) 0.6 0.0-1.0 10^3/uL Eosinophils # (Auto) 0.1 0.0-0.3 10^3/uL Basophils # (Auto) 0.0 0.0-0.1 10^3/uL Immature Granulocyte # (Auto) 0.1 0.0-0.1 10^3/uL OB - Assessment/Plan/Diagnosis Assessment Assessment: active labor Admission Dx 30 yo @ 38.5 weeks Active labor at term HEG GBS neg Admission Status: Inpatient Order (span 2 midnights) Reason for Inpatient Admission: Active labor at term Plan Plan: Expectant Management DONTA ELKINS DO Apr 05, 2021 08:37
[2021-04-05] MEDS ORDERED: MEASLES,MUMPS,RUBELLA 1 EA INJ SQ ONE (08:45)
[2021-04-05] MEDS ORDERED: BENZOCAINE/MENTHOL (DERMOPLAST) 56 ML CAN TP PRN (08:45)
[2021-04-05] MEDS ORDERED: NALOXONE 0.4 MG/ML 1 ML (NARCAN) VIAL IV PRN (08:45)
[2021-04-05] MEDS ORDERED: WITCH HAZEL(TUCKS) 40 EA JAR TOP PRN (08:45)
[2021-04-05] MEDS ORDERED: OXYTOCIN PRE-MIX DRIP 500 ML IV SCH (08:45)
[2021-04-05] MEDS ORDERED: TETANUS,DIPTH,PERTUSS P/F (BOOSTRIX) 0.5 ML VIAL IM ONE (08:45)
[2021-04-05] MEDS ORDERED: DIBUCAINE 1% OINTMENT 30 GM TUBE TOP PRN (08:45)
[2021-04-05] MEDS ORDERED: HYDROcodone/APAP 5 MG/325 MG (LORTAB) TAB PO PRN (08:45)
--- NOTE | 2021-04-05 09:07 | OB Labor & Delivery Record ---
L&D History Date of Service Date of Service: Apr 05, 2021 History Expected Date of Delivery: Apr 14, 2021 Gestational Age in Weeks: 38 Hx : 5 Hx Para: 3 Complications Events: Routine care (hyperemesis gravidarum) Operative Indications (Cesarea: N/A-Vaginal Delivery Intrapartal Events: None L&D Stage1 Stage One Onset of Labor - Date: Apr 05, 2021 Monitors and Tracing Monitor Mode: External Heart Rate: 105 Station: -1 Short Term Variability: Present Presentation: Vertex Vital Signs VS - Last 72 Hours, by Label 04/05/21 04/05/21 04/05/21 04/05/21 03:30 03:53 04:09 04:12 Temp 36.5 36.5 Pulse 87 85 85 Resp 18 18 18 B/P (MAP) 130/87 (101) 174/97 (122) 147/87 (107) Pulse Ox 98 97 97 O2 Delivery Room Air Room Air 04/05/21 04/05/21 04/05/21 04/05/21 04:25 04:55 05:25 05:55 Pulse 97 105 99 99 Resp 18 18 18 18 B/P (MAP) 142/77 (98) 125/83 (97) 140/81 (100) 121/70 (87) Pulse Ox 98 04/05/21 04/05/21 04/05/21 04/05/21 06:25 06:50 07:30 07:45 Temp 36.1 Pulse 101 98 94 Resp 18 18 18 B/P (MAP) 150/98 (115) 150/91 (110) 139/94 (109) Pulse Ox 98 99 97 O2 Delivery Room Air Room Air 04/05/21 08:00 Pulse 97 Resp 18 B/P (MAP) 143/93 (110) Pulse Ox 99 O2 Delivery Room Air Rupture of Membranes Spontaneous Ruture of Membrane: No Amniotic Membrane Rupture Time: 07:55 Amniotic Membrane Fluid Desc.: Clear Vaginal Bleeding Description: Normal Show Progress/Notes Patient admitted in active labor this morning. She received 2 doses of IV dilaudid for pain management with her labor, she did not want an epidural. SHe progressed rapidly after AROM to complete and +1 station L&D Stage2 Stage Two Stage II Date: Apr 05, 2021 Monitors and Tracing Monitor Mode: External Heart Rate: 105 Monitor Accelerations: Uniform Monitor Decelerations: Variable Fpc Variability: Average (6-10) Short Term Variability: Present Position: Right Occiput Anterior Presentation: Vertex Cord Descript/Complications Cord Vessel Description: 3 Vessels Complications nuchal cord reduced x 1 Delivery Type Infant Delivery Method: Spontaneous Vaginal Anterior Shoulder: Right Episiotomy/Perineal Laceration Laceraction(s)/Extensions: Yes Degree (describe repair) right periurethral, clitoral, and 1st degree vaginal laceration all repaired using 3-0 rapide in usual fashion. Condition of Infant Delivery 1 minute Comment: 8 5 minute Comment: 9 Notes Live female weight 7lbs 9 oz Condition of Infant Condition of : Living Exam: No Observed Abnormalities Resuscitation Resuscitation: N/A - Spontaneous Resp L&D Stage3 Stage Three Stage III Date: Apr 05, 2021 Pictocin Pitocin Administration Comment: 30 mu wide open at delivery of placenta Placenta Delivery Placenta Delivery: Spontaneous Delivery Summary Summary Estimated blood loss (mL): 250 Attending at delivery: Donta Elkins DO Condition of Delivery Examined: Cervix Examined, Uterus Explored Post Hemorrhage: No Condition of Mother stable Condition of Infant (s) stable DONTA ELKINS DO Apr 05, 2021 09:07
--- NOTE | 2021-04-05 09:08 | Discharge Inst-Women's Service ---
Discharge Inst-Women's Serv Depart Medication/Instructions New, Converted or Re-Newed RX: RX on Chart Final Diagnosis PPD 1 NVD Problems Reviewed?: Yes Consults/Follow Up Additional Follow Up: Yes Orders/Referrals DR. Elkins in 6 weeks Activity Activity: Activity as Tolerated Driving Instructions: No Driving for 1 Week NO SMOKING: NO SMOKING Nothing Inside Vagina: No Douching, No [place], No Tampons Diet Discharge Diet: No Restrictions Symptoms to Report to : Bleeding Excessive, Pain Increased, Fever Over 101 Degrees F, Vaginal Bleeding Increase, Questions/Concerns For Any Problems or Questions: Contact Your Physician DONTA ELKINS DO Apr 05, 2021 09:08
[2021-04-05] MEDS ORDERED: BENZ78AE5 TP (09:09)
[2021-04-05] MEDS ORDERED: IBUP-844 PO (09:09)
[2021-04-05] MEDS ORDERED: DIBU30OI TOP (09:09)
[2021-04-05] MEDS ORDERED: DOCU-239 PO (09:09)
[2021-04-05] MEDS ORDERED: FERR325T24 PO (09:09)
[2021-04-05] MEDS ORDERED: ACHD5005 PO (09:09)
[2021-04-05] MEDS: IBUPROFEN 600 MG (MOTRIN) TAB PO SCH ×2 (12:36→18:45)
[2021-04-05] MEDS: DOCUSATE SODIUM 100 MG (COLACE) CAP PO SCH ×2 (12:37→20:55)
[2021-04-05] MEDS: FERROUS SULF 325 MG (IRON) TAB PO SCH (12:37)
[2021-04-05] MEDS ORDERED: CATHETER FLUSH 10 ML SYR IV SCH (14:00)
[2021-04-06] MEDS: IBUPROFEN 600 MG (MOTRIN) TAB PO SCH ×3 (00:26→14:34)
[2021-04-06 00:50] VITALS: BP 130/78
[2021-04-06 04:13] VITALS: BP 115/72
[2021-04-06 05:52] LABS: BASOPHILS % (AUTO) 0 % (0-10); EOSINOPHILS # (AUTO) 0.1 10^3/uL (0.0-0.3); EOSINOPHILS % (AUTO) 0 % (0-10); HEMATOCRIT 36 % (35-52); HEMOGLOBIN 11.2 g/dL (11.5-16.0); LYMPHOCYTES # (AUTO) 1.7 10^3/uL (1.0-4.0); LYMPHOCYTES % (AUTO) 12 % (12-44); MEAN CORPUSCULAR HEMOGLOBIN 31 pg (25-34); MEAN CORPUSCULAR HGB CONC 32 g/dL (32-36); MEAN CORPUSCULAR VOLUME 97 fL (80-99); MEAN PLATELET VOLUME 11.8 fL (9.0-12.2); MONOCYTES # (AUTO) 0.5 10^3/uL (0.0-1.0); MONOCYTES % (AUTO) 4 % (0-12); NEUTROPHILS # (AUTO) 11.6 10^3/uL (1.8-7.8); NEUTROPHILS % (AUTO) 83 % (42-75); PLATELET COUNT 262 10^3/uL (130-400); WHITE BLOOD COUNT 14.1 10^3/uL (4.3-11.0)
[2021-04-06] MEDS ORDERED: PRENATAL VITAMIN 1 EA TAB PO SCH (07:00)
--- NOTE | 2021-04-06 07:50 | Postpartum Progress Note ---
Note Note Day # 1 Subjective: Patient is without complaints. Ambulating, voiding. Tolerating a regular diet without nausea or vomiting. Normal lochia. Pain is well controlled with oral pain medications. Breast feeding. Objective: Physical Exam: General - Alert and oriented, no apparent distress Abdomen - Soft, appropriately tender to palpation, non-distended, fundus firm at umbilicus Extremities - no edema, negative Tonia's bilaterally Assessment: Post- day # 1, status post spontaneous vaginal delivery. Recovering well, hemodynamically stable Acute blood loss anemia Plan: Routine care. Encourage breast feeding. Encourage ambulation. Ferrous sulfate supplementation. Plan for discharge this afternoon or tomorrow morning Vitals - Labs Vital Signs - I&O Vital Signs Date Time Temp Pulse Resp B/P (MAP) Pulse Ox O2 Delivery O2 Flow Rate FiO2 04/06/21 04:13 35.8 82 18 115/72 (86) 98 Room Air 04/06/21 00:50 36.5 72 18 130/78 (95) 97 Room Air 04/05/21 19:49 36.7 74 18 138/86 (103) 99 Room Air 04/05/21 16:00 36.5 78 16 138/90 (106) 98 Room Air 04/05/21 12:38 36.6 76 16 128/82 (97) 97 Room Air 04/05/21 09:33 98 16 126/79 (95) Room Air 04/05/21 09:18 36.4 105 16 130/77 (94) Room Air 04/05/21 09:03 36.3 106 18 134/79 (97) Room Air 04/05/21 08:46 Room Air 04/05/21 08:30 121 18 169/97 (121) Room Air 04/05/21 08:15 110 18 99 Room Air 04/05/21 08:00 97 18 143/93 (110) 99 Room Air 04/05/21 07:45 Room Air I & O 04/06/21 07:00 Intake Total 1700 ml Balance 1700 ml Labs Laboratory Tests 04/06/21 05:34: White Blood Count 14.1H, Red Blood Count 3.66L, Hemoglobin 11.2L, Hematocrit 36, Mean Corpuscular Volume 97, Mean Corpuscular Hemoglobin 31, Mean Corpuscular Hemoglobin Concent 32, Red Cell Distribution Width 19.2H, Platelet Count 262, Mean Platelet Volume 11.8, Immature Granulocyte % (Auto) 1, Neutrophils (%) ( Auto) 83H, Lymphocytes (%) (Auto) 12, Monocytes (%) (Auto) 4, Eosinophils (%) (Auto) 0, Basophils (%) (Auto) 0, Neutrophils # (Auto) 11.6H, Lymphocytes # (Auto) 1.7, Monocytes # (Auto) 0.5, Eosinophils # (Auto) 0.1, Basophils # (Auto) 0.0, Immature Granulocyte # (Auto) 0.1 GLORIA COVINGTON APRN Apr 06, 2021 07:50
[2021-04-06] MEDS: DOCUSATE SODIUM 100 MG (COLACE) CAP PO SCH (08:22)
[2021-04-06] MEDS: FERROUS SULF 325 MG (IRON) TAB PO SCH (08:22)
[2021-04-06 08:24] VITALS: BP 126/76
== END 2021-04-06 17:00 | disposition home or self-care (01) | DRG 768 ==
LOC: WSo 03:15 → LDRP 03:17 → WSo 03:35 → LDRP 12:30
PROVIDERS: ADMIT Obstetrics & Gynecology; ATTEND Obstetrics & Gynecology
PROC: 10E0XZZ Delivery of Products of Conception, External Approach (ICD-10-PCS; principal; 2021-04-05)
PROC: 0UQJXZZ Repair Clitoris, External Approach (ICD-10-PCS; 2021-04-05)
PROC: 0HQ9XZZ Repair Perineum Skin, External Approach (ICD-10-PCS; 2021-04-05)
PROC: 0UQMXZZ Repair Vulva, External Approach (ICD-10-PCS; 2021-04-05)
DX: O70.0 First degree perineal laceration during delivery (principal); Z37.0 Single live birth; D62 Acute posthemorrhagic anemia; O71.82 Other specified trauma to perineum and vulva; Z3A.38 38 weeks gestation of pregnancy; O90.81 Anemia of the puerperium
CPT/HCPCS: 36415; 85025; 86850; 86900; 86901; 99212

== ENCOUNTER 2021-11-28 22:01 | Emergency (ER) | payer MEDICAID ==
[~2021-11-28] VITALS: Ht 165 cm; Wt 70.3 kg
[~2021-11-28 22:01] MED LIST changes: +ACET-11 PO; -ACET1TAB43 PO; +ACHD5005 PO; +BENZ78AE5 TP; +DIBU30OI TOP; +DOCU-239 PO; +FERR325T24 PO; +IBUP-844 PO; -POTA10TA36 PO; +POTA10TA37 PO
[2021-11-28 23:43] LABS: BASOPHILS % (AUTO) 0 % (0-10); EOSINOPHILS % (AUTO) 3 % (0-10); MEAN CORPUSCULAR HEMOGLOBIN 26 pg (25-34); MEAN CORPUSCULAR HGB CONC 30 g/dL (32-36); MONOCYTES # (AUTO) 0.6 10^3/uL (0.0-1.0)
[2021-11-28 23:45] LABS: EOSINOPHILS # (AUTO) 0.3 10^3/uL (0.0-0.3); HEMATOCRIT 36 % (35-52); HEMOGLOBIN 10.9 g/dL (11.5-16.0); LYMPHOCYTES # (AUTO) 1.8 10^3/uL (1.0-4.0); LYMPHOCYTES % (AUTO) 18 % (12-44); MEAN CORPUSCULAR VOLUME 86 fL (80-99); MEAN PLATELET VOLUME 13.3 fL (9.0-12.2); MONOCYTES % (AUTO) 6 % (0-12); NEUTROPHILS # (AUTO) 6.9 10^3/uL (1.8-7.8); NEUTROPHILS % (AUTO) 72 % (42-75); PLATELET COUNT 224 10^3/uL (130-400); WHITE BLOOD COUNT 9.6 10^3/uL (4.3-11.0)
[2021-11-28 23:54] LABS: AMPHETAMINE SCREEN, URINE NEGATIVE (NEGATIVE); BARBITURATE SCREEN URINE NEGATIVE (NEGATIVE); BENZODIAZEPINES SCREEN URINE NEGATIVE (NEGATIVE); CANNABINOID SCREEN, URINE POSITIVE (NEGATIVE); COCAINE SCREEN URINE NEGATIVE (NEGATIVE); METHADONE STAT NEGATIVE (NEGATIVE); OPIATE SCREEN URINE NEGATIVE (NEGATIVE); OXYCODONE STAT NEGATIVE (NEGATIVE); PROPOXYPHENE STAT NEGATIVE (NEGATIVE); TRICYCLIC ANTIDEPRESSANTS SCRE NEGATIVE (NEGATIVE)
--- NOTE | 2021-11-28 23:54 | ED EENT ---
History of Present Illness General Chief Complaint: Dental Problems/Pain Stated Complaint: FACIAL SWELLING Nursing Triage Note: c/o left upper broken tooth with mild facial swelling x2 days. pt reports facial swelling became worse this afternoon. Source: patient History of Present Illness Date Seen by Provider: November 28, 2021 Time Seen by Provider: 23:21 Initial Comments PT ARRIVES VIA POV FROM HOME HAS HAD "TEETH PROBLEMS" "FOR AWHILE" PT HAS NOT SEEN A DENTIST IN OVER A YEAR--GOES TO [facility], AND WAS TOLD AT THAT TIME THAT SHE NEEDED A ROOT CANAL--DOES NOT KNOW WHAT TEETH NEEDED ROOT CANAL. NEVER FOLLOWED UP WITH DENTIST, AND HAD NOT SEEN A DENTIST FOR A VERY LONG TIME BEFORE THAT VISIT STATES SHE HAS HAD A TOOTH THAT HAS BEEN "BROKEN OFF" "FOR AWHILE" BUT HAS HAD INCREASED PAIN TO THE TOOTH LATELY, AND HAD SOME SWELLING TO THE GUMS FOR THE LAST FEW DAYS, AND A LITTLE BIT OF SWELLING TO THE LEFT SIDE OF HER FACE. SWELLING HAS BEEN WORSE TODAY TOOK A NAP AND WOKE UP AT 2145 TONIGHT AND HAD MUCH WORSE SWELLING, SO CAME HERE NO KNOWN FEVER TOOK 1 IBUPROFEN AT 2130 TONIGHT, OTHERWISE HAS NOT TAKEN ANYTHING ELSE FOR PAIN PT STATES SHE CALLED [facility] TODAY, BUT DID NOT MAKE AN APPOINTMENT. PT STATES THEY TOLD HER TO "JUST CALL BACK" PT STATES SHE HAS NOT SMOKED CIGARETTES OR MARIJUANA OR USED ANY ALCOHOL "IN YEARS" LMP 11/11/21, NORMAL. NO CONTROL PT DELIVERED 8 MONTHS AGO, IS NOT . PCP: [facility] Allergies and Home Medications Allergies Coded Allergies: tramadol (Verified Allergy, Unknown, RASH, 04/27/16) Patient Home Medication List Home Medication List Reviewed: Yes Clindamycin HCl (Clindamycin HCl) 300 Mg Capsule, 300 MG PO QID Prescribed by: PORSHA URIARTE on 11/29/21 0128 Ketorolac Tromethamine (Ketorolac Tromethamine) 10 Mg Tablet, 10 MG PO Q6H Prescribed by: PORSHA URIARTE on 11/29/21 0128 Discontinued Medications Benzocaine/Menthol (Dermoplast Pain Relieving Sudley) 78 Gm Aerosol, 56 EA TP UD PRN for PAIN- SEE INSTRUCTIONS Discontinued Reason: No Longer Taking Prescribed by: DONTA ELKINS on 04/05/21 0909 Last Action: Discontinued Dibucaine (Dibucaine) 30 Gm Oint, 0 GM TOP UD PRN for PAIN- SEE INSTRUCTIONS Discontinued Reason: No Longer Taking Prescribed by: DONTA ELKINS on 04/05/21908 Last Action: Discontinued Docusate Sodium (Dok) 100 Mg Capsule, 100 MG PO BID PRN for CONSTIPATION-1ST LINE Discontinued Reason: No Longer Taking Prescribed by: DONTA ELKINS on 04/05/21908 Last Action: Discontinued Ferrous Sulfate (Ferosul) 325 Mg Tablet, 325 MG PO DAILY Discontinued Reason: No Longer Taking Prescribed by: DONTA ELKINS on 04/05/21908 Last Action: Discontinued Hydrocodone Bit/Acetaminophen (HYDROcodone/APAP 5 MG/325 MG TAB) 1 Tab Tab, 1 EA PO Q4H PRN for PAIN-MODERATE (5-7) Discontinued Reason: No Longer Taking Prescribed by: DONTA ELKINS on 04/05/21908 Last Action: Discontinued Ibuprofen (Ibu) 600 Mg Tablet, 600 MG PO Q6HR Discontinued Reason: No Longer Taking Prescribed by: DONTA ELKINS on 04/05/21908 Last Action: Discontinued Vit W-Ca,Fe,FA(<1 mg) ( Formula) 1 Each Tablet, 1 EACH PO DAILY, (Reported) Discontinued Reason: No Longer Taking Entered as Reported by: LYNDA MCNAIR on 11/03/20856 Last Action: Discontinued Review of Systems Review of Systems Constitutional: no symptoms reported Eyes: Other (SWELLING AROUND LEFT EYE) Ears: No Symptoms Reported Nose: no symptoms reported Mouth: see HPI Throat: no symptoms reported Respiratory: no symptoms reported Cardiovascular: no symptoms reported Gastrointestinal: no symptoms reported LMP: November 11, 2021 Musculoskeletal: no symptoms reported Skin: other (REDNESS TO LEFT SIDE OF FACE AND AROUND LEFT EYE) Neurological: No Symptoms Reported Hematologic/Lymphatic: No Symptoms Reported Immunological/Allergic: no symptoms reported Past Azfibfr-Szchnb-Wncebx Hx Patient Social History Tobacco Use?: Yes Tobacco type used: Cigarettes Smoking Status: Former Smoker Substance use?: Yes Substance type: Marijuana Alcohol Use?: Yes Pt feels they are or have been: No Immunizations Up To Date Tetanus Booster (TDap): Unknown Seasonal Allergies Seasonal Allergies: No Past Medical History Surgery/Hospitalization HX: wisdom teeth Surgeries: Yes (WISDOM TEETH REMOVED) Respiratory: No Cardiac: No Neurological: No : No Last Menstrual Period: November 11, 2021 Reproductive Disorders: No Female Reproductive Disorders: Denies Sexually Transmitted Disease: No HIV/AIDS: No Gastrointestinal: No Musculoskeletal: No Endocrine: No HEENT: Yes (CHRONIC DENTAL ISSUES, DENTAL CARIES) Cancer: No Psychosocial: No Integumentary: No Blood Disorders: No Adverse Reaction/Blood Tranf: No Family Medical History Congenital heart disease (PT'S FATHER) Family history: Diabetes mellitus (GRANDMOTHER) SOCIAL HISTORY: -SMOKED 1 PPD, "QUIT YEARS AGO" -USED TO DRINK ALCOHOL, "QUIT YEARS AGO" -USED TO SMOKE MARIJUANA, "QUIT YEARS AGO"--UDS + FOR THC 11/28/21 Physical Exam Vital Signs Vital Signs - First Documented 11/28/21 23:09 Temp 36.4 Pulse 78 Resp 16 B/P (MAP) 140/104 (116) Pulse Ox 100 O2 Delivery Room Air Height, Weight, BMI Height: 5'5" Weight: 125lbs. 4.0oz. [id number]; 25.00 BMI Method:Stated General Appearance: WD/WN, no apparent distress Eyes: left eye other (MODERATE LEFT PERIORBITAL EDEMA WITH ERYTHEMA UP TO LEFT LOWER LID); bilateral eye PERRL, bilateral eye EOMI Ears: bilateral ear TM normal Nose: normal inspection Mouth/Throat: pharynx normal, dental tenderness; No mandibular swelling; maxillary swelling; No trismus; other (EXTENSIVE DENTAL CARIES, WITH MULTIPLE MISSING TEETH AND REMAINING TEETH DECAYED DOWN TO GUMS., LEFT UPPER CANINE/PREMOLAR AREA WITH GUM SWELLING AND ERYTHEMA. MODERATE SWELLING AND ERYTHEMA TO LEFT MAXILLA UP TO LEFT PERIORBITAL AREA. ) Neck: normal inspection Cardiovascular: regular rate, rhythm, no murmur Respiratory: normal breath sounds Neurologic/Psychiatric: osha inspector II-XII nml as tested, no motor/sensory deficits, alert, normal mood/affect, oriented x 3 Skin: normal color, warm/dry Progress/Results/Core Measures Results/Orders Lab Results Laboratory Tests Test 11/28/21 22:25 11/28/21 22:35 Range/Units Urine Opiates Screen NEGATIVE NEGATIVE Urine Oxycodone Screen NEGATIVE NEGATIVE Urine Methadone Screen NEGATIVE NEGATIVE Urine Propoxyphene Screen NEGATIVE NEGATIVE Urine Barbiturates Screen NEGATIVE NEGATIVE Ur Tricyclic Antidepressants Screen NEGATIVE NEGATIVE Urine Phencyclidine Screen NEGATIVE NEGATIVE Urine Amphetamines Screen NEGATIVE NEGATIVE Urine Methamphetamines Screen NEGATIVE NEGATIVE Urine Benzodiazepines Screen NEGATIVE NEGATIVE Urine Cocaine Screen NEGATIVE NEGATIVE Urine Cannabinoids Screen POSITIVE H NEGATIVE White Blood Count 9.6 4.3-11.0 10^3/uL Red Blood Count 4.21 3.80-5.11 10^6/uL Hemoglobin 10.9 L 11.5-16.0 g/dL Hematocrit 36 35-52 % Mean Corpuscular Volume 86 80-99 fL Mean Corpuscular Hemoglobin 26 25-34 pg Mean Corpuscular Hemoglobin Concent 30 L 32-36 g/dL Red Cell Distribution Width 15.7 H 10.0-14.5 % Platelet Count 224 130-400 10^3/uL Mean Platelet Volume 13.3 H 9.0-12.2 fL Immature Granulocyte % (Auto) 0 % Neutrophils (%) (Auto) 72 42-75 % Lymphocytes (%) (Auto) 18 12-44 % Monocytes (%) (Auto) 6 0-12 % Eosinophils (%) (Auto) 3 0-10 % Basophils (%) (Auto) 0 0-10 % Neutrophils # (Auto) 6.9 1.8-7.8 10^3/uL Lymphocytes # (Auto) 1.8 1.0-4.0 10^3/uL Monocytes # (Auto) 0.6 0.0-1.0 10^3/uL Eosinophils # (Auto) 0.3 0.0-0.3 10^3/uL Basophils # (Auto) 0.0 0.0-0.1 10^3/uL Immature Granulocyte # (Auto) 0.0 0.0-0.1 10^3/uL Percent Immature Platelet Fraction 8.2 H 0.0-7.6 % Erythrocyte Sedimentation Rate 10 0-20 MM/HR Sodium Level 143 135-145 MMOL/L Potassium Level 3.7 3.6-5.0 MMOL/L Chloride Level 111 H 98-107 MMOL/L Carbon Dioxide Level 21 21-32 MMOL/L Anion Gap 11 5-14 MMOL/L Blood Urea Nitrogen 13 7-18 MG/DL Creatinine 0.85 0.60-1.30 MG/DL Estimat Glomerular Filtration Rate 93 BUN/Creatinine Ratio 15 Glucose Level 91 70-105 MG/DL Calcium Level 8.8 8.5-10.1 MG/DL Corrected Calcium 8.7 8.5-10.1 MG/DL Total Bilirubin 0.3 0.1-1.0 MG/DL Aspartate Amino Transf (AST/SGOT) 12 5-34 U/L Alanine Aminotransferase (ALT/SGPT) 12 0-55 U/L Alkaline Phosphatase 49 40-136 U/L C-Reactive Protein High Sensitivity 0.78 H 0.00-0.50 MG/DL Total Protein 6.8 6.4-8.2 GM/DL Albumin 4.1 3.2-4.5 GM/DL My Orders Orders - PORSHA URIARTE DO Ed Iv/Invasive Line Start (11/28/21 23:29) Urine Bedside (11/28/21 23:29) Cbc With Automated Diff (11/28/21:) Comprehensive Metabolic Panel (11/28/21:) Hs C Reactive Protein (11/28/21:) Drug Screen Stat (Urine) (11/28/21:) Erythrocyte Sedimentation Rate (11/28/21:) Ketorolac Injection (Toradol Injection) (11/29/21 00:00) Clindamycin 900 Mg/50 Ml Ivpb (Cleocin P (11/29/21 00:00) Ct Maxillofacial Wo (11/29/21 00:01) Medications Given in ED Current Medications Medications Dose Ordered Sig/Dede Route Start Time Stop Time Status Last Admin Dose Admin Clindamycin Phosphate/Dextrose 50 ml @ 100 mls/hr ONCE ONCE IV 11/29/21 00:00 11/29/21 00:29 DC 11/28/21 23:59 100 MLS/HR Ketorolac Tromethamine 30 mg ONCE ONCE IVP 11/29/21 00:00 11/29/21 00:01 DC 11/28/21 23:59 30 MG Vital Signs/I&O 11/28/21 11/29/21 23:09 01:32 Temp 36.4 36.6 Pulse 78 67 Resp 16 18 B/P (MAP) 140/104 (116) 135/84 Pulse Ox 100 98 O2 Delivery Room Air Room Air Blood Pressure Mean: 116 Progress Progress Note : Progress Note GIVEN TORADOL AND CLINDAMYCIN SWELLING AND ERYTHEMA TO LEFT SIDE OF FACE HAS DECREASED MILDLY PRIOR TO DISMISSAL Diagnostic Imaging Comments CT MAXILLOFACIALS--LEFT FACIAL SOFT TISSUE SWELLING, NO AIR FLUID LEVELS IN SINUSES. NO FRACTURE--PER [facility] VIA FAX AT 0122 Reviewed: Reviewed by Me Departure Impression Primary Impression: DENTAL ABSCESS WITH FACIAL CELLULITIS Additional Impression: Dental caries Disposition: HOME, SELF-CARE Condition: Stable Departure-Patient Inst. Decision time for Depature: 01:25 Referrals: [facility] Patient Instructions: Tooth Decay, Adult, Tooth Abscess (DC) Add. Discharge Instructions: FREQUENT [place] FOLLOW UP WITH [facility] IN 2-3 DAYS FOR FURTHER CARE, OR FOLLOW UP WITH [facility] IF YOU ARE UNABLE TO GET INTO DENTIST THIS WEEK. YOU NEED TO GO AHEAD AND MAKE AN APPOINTMENT WITH DENTIST, REGARDLESS OF HOW LONG IT WILL TAKE BEFORE YOU CAN GET AN APPOINTMENT All discharge instructions reviewed with patient and/or family. Voiced understanding. Scripts Ketorolac Tromethamine (Ketorolac Tromethamine) 10 Mg Tablet 10 MG PO Q6H for Pain, #15 TAB Prov: PORSHA URIARTE DO 11/29/21 Clindamycin HCl (Clindamycin HCl) 300 Mg Capsule 300 MG PO QID for 10 Days, #40 CAP Prov: PORSHA URIARTE DO 11/29/21 PORSHA URIARTE DO November 28, 2021 23:54
[2021-11-29] LABS: ALBUMIN 4.1 GM/DL (3.2-4.5); POTASSIUM 3.7 MMOL/L (3.6-5.0)
[2021-11-29] MEDS ORDERED: KETOROLAC 30 MG/ML VIAL IVP ONE
[2021-11-29] MEDS ORDERED: CLINDAMYCIN 900 MG/50 ML IVPB 50 ML IV ONE
[2021-11-29 00:01] LABS: CALCIUM 8.8 MG/DL (8.5-10.1)
[2021-11-29 00:02] LABS: TOTAL PROTEIN 6.8 GM/DL (6.4-8.2)
[2021-11-29 00:03] LABS: ERYTHROCYTE SEDIMENTATION RATE 10 MM/HR (0-20)
[2021-11-29 00:04] LABS: BILIRUBIN,TOTAL 0.3 MG/DL (0.1-1.0)
[2021-11-29 00:06] LABS: CREATININE SERUM 0.85 MG/DL (0.60-1.30)
[2021-11-29] MEDS ORDERED: KETO10TA PO (01:28)
[2021-11-29] MEDS ORDERED: CLIN-144 PO (01:28)
[2021-11-29 01:32] VITALS: BP 135/84
--- NOTE | 2021-11-29 05:54 | Diagnostic Imaging Report ---
PROCEDURE: CT maxillofacial without contrast. TECHNIQUE: Multiple contiguous axial images were obtained through the facial bones without the use of intravenous contrast. Auto Exposure Controls were utilized during the CT exam to meet ALARA standards for radiation dose reduction. INDICATION: Facial trauma. FINDINGS: There is soft tissue swelling over the left malar eminence. There is membrane thickening in left maxillary sinus. The orbital dumont and rims appear to be intact. Mandible appears to be intact. Nasal bones appear to be intact. IMPRESSION: There are no facial fractures seen. There is soft tissue swelling over the left malar eminence. I agree with preliminary interpretation. Dictated by: Dictated on workstation # [id number]
== END 2021-11-29 01:35 | disposition home or self-care (01) ==
LOC: EDUNIT# 22:01 → ER 22:02
DX: L03.211 Cellulitis of face (principal); K04.7 Periapical abscess without sinus; K02.9 Dental caries, unspecified; Z87.891 Personal history of nicotine dependence
CPT/HCPCS: 36415; 70486; 80053; 80306; 84703; 85025; 85652; 86141

== ENCOUNTER 2022-01-16 08:36 | Emergency (ER) | payer MEDICAID ==
[~2022-01-16] VITALS: Ht 165.1 cm; Wt 72.5 kg
[~2022-01-16 08:36] MED LIST changes: +CLIN-144 PO; +KETO10TA PO
[2022-01-16 09:04] VITALS: BP 145/83
[2022-01-16] MEDS ORDERED: cefTRIAXone 1,000 MG VIAL IM ONE (09:30)
[2022-01-16] MEDS ORDERED: LIDOCAINE 2% VISCOUS 15 ML UDC PO ONE (09:30)
[2022-01-16] MEDS ORDERED: BUPIVACAINE 0.5% 30 ML (SENSORCAINE) VIAL INJ ONE (09:30)
[2022-01-16] MEDS ORDERED: LIDOCAINE 1% INJ 20 ML VIAL INJ ONE (09:30)
[2022-01-16] MEDS ORDERED: KETOROLAC 60 MG/2 ML VIAL IM ONE (09:45)
[2022-01-16] MEDS ORDERED: CLIN150C20 PO (10:08)
--- NOTE | 2022-01-16 10:08 | ED EENT ---
History of Present Illness General Chief Complaint: Dental Problems/Pain Stated Complaint: ABCESS TOOTH Nursing Triage Note: PT AMB TO TRIAGE WITH COMPLAINT OF HEADACHE, DENTAL ABSCESS. STATES IS ON PENICILLIN. Source: patient Exam Limitations: no limitations History of Present Illness Date Seen by Provider: Jan 16, 2022 Time Seen by Provider: 09:22 Initial Comments Patient ER by private conveyance chief complaint she is been dealing with about 5 days of dental pain and swelling that started to get a little better after starting antibiotics 3 days ago. She was put on penicillin at [facility]. She does not feel it is getting any better now and is having increasing pain in her right jaw. She has been using Tylenol Motrin but not topicals. No fevers chills nausea vomiting difficulty swallowing Allergies and Home Medications Allergies Coded Allergies: tramadol (Verified Allergy, Unknown, RASH, 04/27/16) Patient Home Medication List Home Medication List Reviewed: Yes Clindamycin HCl (Clindamycin HCl) 300 Mg Capsule, 300 MG PO QID Prescribed by: PORSHA URIARTE on 11/29/21 0128 Clindamycin HCl (Clindamycin HCl) 150 Mg Capsule, 450 MG PO TID Prescribed by: DEION CLARKE on 01/16/22 1008 Ketorolac Tromethamine (Ketorolac Tromethamine) 10 Mg Tablet, 10 MG PO Q6H Prescribed by: PORSHA URIARTE on 11/29/21 0128 Review of Systems Review of Systems Constitutional: No chills, No diaphoresis Eyes: Denies Blindness, Denies Drainage Ears: Denies Dizziness, Denies Pain Nose: denies clots, denies congestion Mouth: see HPI; denies clots, denies loose teeth Throat: see HPI; denies pain, denies swelling All Other Systems Reviewed Negative Unless Noted: Yes Past Ejqdbfk-Jyaaph-Sxtkvb Hx Patient Social History Tobacco Use?: No Smoking Status: Never a Smoker Use of E-Cig and/or Vaping dev: No Substance use?: Yes Substance type: Marijuana Alcohol Use?: No Pt feels they are or have been: No Immunizations Up To Date Tetanus Booster (TDap): Unknown Seasonal Allergies Seasonal Allergies: No Past Medical History Surgery/Hospitalization HX: wisdom teeth Surgeries: Yes (WISDOM TEETH REMOVED) Respiratory: No Cardiac: No Neurological: No Reproductive Disorders: No Female Reproductive Disorders: Denies Sexually Transmitted Disease: No HIV/AIDS: No Gastrointestinal: No Musculoskeletal: No Endocrine: No HEENT: Yes (CHRONIC DENTAL ISSUES, DENTAL CARIES) Cancer: No Psychosocial: No Integumentary: No Blood Disorders: No Adverse Reaction/Blood Tranf: No Family Medical History Congenital heart disease (PT'S FATHER) Family history: Diabetes mellitus (GRANDMOTHER) SOCIAL HISTORY: -SMOKED 1 PPD, "QUIT YEARS AGO" -USED TO DRINK ALCOHOL, "QUIT YEARS AGO" -USED TO SMOKE MARIJUANA, "QUIT YEARS AGO"--UDS + FOR THC 11/28/21 Physical Exam Vital Signs Vital Signs - First Documented 01/16/22 09:04 Temp 35.9 Pulse 98 Resp 14 B/P (MAP) 145/83 (103) Pulse Ox 98 O2 Delivery Room Air Height, Weight, BMI Height: 5'5" Weight: 125lbs. 4.0oz. [id number]; 26.00 BMI Method:Stated General Appearance: WD/WN, mild distress Eyes: bilateral eye normal inspection, bilateral eye PERRL, bilateral eye EOMI Ears: bilateral ear auricle normal, bilateral ear canal normal, bilateral ear TM normal Nose: normal inspection; No active bleeding Mouth/Throat: other (Soft tissue swelling of the right face without erythema or induration. Right mandible anteriorly has a large fluctuant area with pointing) Neck: non-tender, full range of motion, supple, normal inspection Cardiovascular: normal peripheral pulses, regular rate, rhythm Procedures/Interventions Progress Right mandibular infra alveolar nerve block usual procedure. Half cc of Marcaine half percent without epinephrine and 1/2 cc of lidocaine half percent without epinephrine. We injected 1/2 cc of the solution into the usual site and patient tolerated procedure well. We did not aspirate any blood on withdrawal of the plunger prior to injecting. Drain the abscess that was pointing on the right anterior mandible with a 22- gauge 1-1/2 inch needle and produced serosanguineous purulent material about 5- 10 cc. Progress/Results/Core Measures Results/Orders My Orders Orders - DEION CLARKE Lidocaine 2% Viscous 15 Ml (Xylocaine Vi (01/16/22 09:30) Bupivacaine 0.5% Injection (Sensorcaine (01/16/22 09:30) Ceftriaxone (Rocephin) (01/16/22 09:30) Lidocaine 1% Inj 20 Ml (Xylocaine 1% Inj (01/16/22 09:30) Ketorolac Injection (Toradol Injection) (01/16/22 09:45) Medications Given in ED Current Medications Medications Dose Ordered Sig/Dede Route Start Time Stop Time Status Last Admin Dose Admin Bupivacaine HCl 30 ml ONCE ONCE INJ 01/16/22 09:30 01/16/22 09:31 DC 01/16/22 09:42 30 ML Ceftriaxone Sodium 1,000 mg ONCE ONCE IM 01/16/22 09:30 01/16/22 09:31 DC 01/16/22 09:42 1,000 MG Ketorolac Tromethamine 60 mg ONCE ONCE IM 01/16/22 09:45 01/16/22 09:46 DC 01/16/22 09:49 60 MG Lidocaine HCl 2.1 ml ONCE ONCE INJ 01/16/22 09:30 01/16/22 09:31 DC 01/16/22 09:42 2.1 ML Lidocaine HCl 5 ml ONCE ONCE PO 01/16/22 09:30 01/16/22 09:31 DC 01/16/22 09:42 5 ML Vital Signs/I&O 01/16/22 09:04 Temp 35.9 Pulse 98 Resp 14 B/P (MAP) 145/83 (103) Pulse Ox 98 O2 Delivery Room Air Blood Pressure Mean: 103 Progress Progress Note : Time: 10:04 Progress Note Infra alveolar nerve block on the right side, viscous lidocaine, Toradol and Rocephin. We will switch her from penicillin to clindamycin and have her follow-up with the dentist next week Departure Impression Primary Impression: Dental abscess Disposition: 01 HOME, SELF-CARE Condition: Improved Departure-Patient Inst. Decision time for Depature: 10:06 Referrals: NO,LOCAL PHYSICIAN (PCP/Family) Primary Care Physician Patient Instructions: Tooth Abscess (DC) Add. Discharge Instructions: Stop taking the penicillin. Clindamycin 3 tablets 3 times a day for a week. Probiotics 1 capsule twice a day at least half an hour before or after antibiotics. Drink plenty fluids. If your pain is intolerable then you can use viscous lidocaine 5 cc on gauze applied directly over the tooth that is causing the most pain and hold for 30 minutes without eating or drinking. You can do this every 6 hours. Tylenol 1000 mg every 8 hours needed for pain. Ibuprofen 800 mg every 8 hours needed for pain. Expect to see improvement in the next 3 to 4 days on antibiotics. Follow-up with your dentist in 1 week. All discharge instructions reviewed with patient and/or family. Voiced understanding. Scripts Clindamycin HCl (Clindamycin HCl) 150 Mg Capsule 450 MG PO TID for 7 Days, #63 CAP 0 Refills Prov: DEION CLARKE 01/16/22 DEION CLARKE Jan 16, 2022 10:08
[2022-01-16] MEDS ORDERED: ONDA4TAB11 PO (19:02)
== END 2022-01-16 10:45 | disposition home or self-care (01) ==
LOC: EDUNIT# 08:36 → ER 08:37
DX: K04.7 Periapical abscess without sinus (principal); Z87.891 Personal history of nicotine dependence
CPT/HCPCS: 99284

== ENCOUNTER 2022-01-16 16:15 | Emergency (ER) | payer MEDICAID ==
[~2022-01-16] VITALS: Ht 165 cm; Wt 73.0 kg
[~2022-01-16 16:15] MED LIST changes: +CLIN150C20 PO
[2022-01-16] MEDS ORDERED: NS IV 1000 ML 1,000 ML IV ONE (17:15)
[2022-01-16] MEDS ORDERED: ONDANSETRON 4 MG/2 ML (SDV) Z0FRAN IVP ONE (17:15)
[2022-01-16] MEDS ORDERED: diphenhydrAMINE 50 MG/ML INJ (BENADRYL) IVP ONE (17:15)
[2022-01-16 17:38] LABS: BILIRUBIN,URINE NEGATIVE (NEGATIVE); CLARITY,URINE CLEAR; COLOR,URINE YELLOW; GLUCOSE, URINE (UA) NEGATIVE (NEGATIVE); KETONES,URINE 2+ (NEGATIVE); LEUKOCYTE ESTERASE ,URINE 2+ (NEGATIVE); NITRITE,URINE NEGATIVE (NEGATIVE); PROTEIN,URINE TRACE (NEGATIVE)
--- NOTE | 2022-01-16 17:38 | ED Abdominal Pain ---
General Chief Complaint: Abdominal/GI Problems Stated Complaint: NAUSEA, VOMITING, WEAKNESS Nursing Triage Note: pt. seen today in ED for dental pain. reports going home. reports nausea and multiple episodes of emesis, accomp w/ nonproductive cough and aching. here for eval. Source of Information: Patient Exam Limitations: No Limitations History of Present Illness Date Seen by Provider: Jan 16, 2022 Time Seen by Provider: 17:38 Allergies and Home Medications Allergies Coded Allergies: tramadol (Verified Allergy, Unknown, RASH, 04/27/16) Patient Home Medication List Clindamycin HCl (Clindamycin HCl) 300 Mg Capsule, 300 MG PO QID Prescribed by: PORSHA URIARTE on 11/29/21 0128 Clindamycin HCl (Clindamycin HCl) 150 Mg Capsule, 450 MG PO TID Prescribed by: DEION CLARKE on 01/16/22 1008 Ketorolac Tromethamine (Ketorolac Tromethamine) 10 Mg Tablet, 10 MG PO Q6H Prescribed by: PORSHA URIARTE on 11/29/21 0128 Past Vfrdyvj-Dkrulw-Zksuqu Hx Immunizations Up To Date Tetanus Booster (TDap): Unknown Influenza Vaccine Up-to-Date: No; Not Current Seasonal Allergies Seasonal Allergies: No Past Medical History Surgery/Hospitalization HX: wisdom teeth Surgeries: Yes (WISDOM TEETH REMOVED) Respiratory: No Cardiac: No Neurological: No Reproductive Disorders: No Female Reproductive Disorders: Denies Sexually Transmitted Disease: No HIV/AIDS: No Gastrointestinal: No Musculoskeletal: No Endocrine: No HEENT: Yes (CHRONIC DENTAL ISSUES, DENTAL CARIES) Cancer: No Psychosocial: No Integumentary: No Blood Disorders: No Adverse Reaction/Blood Tranf: No Family Medical History Congenital heart disease (PT'S FATHER) Family history: Diabetes mellitus (GRANDMOTHER) SOCIAL HISTORY: -SMOKED 1 PPD, "QUIT YEARS AGO" -USED TO DRINK ALCOHOL, "QUIT YEARS AGO" -USED TO SMOKE MARIJUANA, "QUIT YEARS AGO"--UDS + FOR THC 11/28/21 Physical Exam Vital Signs Vital Signs - First Documented 01/16/22 16:40 Temp 37.0 Pulse 110 Pulse Ox 97 O2 Delivery Room Air Capillary Refill : Less Than 3 Seconds Height/Weight/BMI Height: 5'5" Weight: 125lbs. 4.0oz. 56.026164rw; 26.00 BMI Method:Stated Progress/Results/Core Measures Results/Orders Lab Results Laboratory Tests Test 01/16/22 16:52 01/16/22 17:00 01/16/22 17:31 Range/Units Influenza Type A (RT-PCR) Not Detected Not Detecte Influenza Type B (RT-PCR) Not Detected Not Detecte SARS-CoV-2 RNA (RT-PCR) Detected H Not Detecte White Blood Count 4.3 4.3-11.0 10^3/uL Red Blood Count 3.99 3.80-5.11 10^6/uL Hemoglobin 10.0 L 11.5-16.0 g/dL Hematocrit 33 L 35-52 % Mean Corpuscular Volume 83 80-99 fL Mean Corpuscular Hemoglobin 25 25-34 pg Mean Corpuscular Hemoglobin Concent 30 L 32-36 g/dL Red Cell Distribution Width 15.9 H 10.0-14.5 % Platelet Count 176 130-400 10^3/uL Mean Platelet Volume 13.4 H 9.0-12.2 fL Immature Granulocyte % (Auto) 0 % Neutrophils (%) (Auto) 87 H 42-75 % Lymphocytes (%) (Auto) 5 L 12-44 % Monocytes (%) (Auto) 7 0-12 % Eosinophils (%) (Auto) 1 0-10 % Basophils (%) (Auto) 0 0-10 % Neutrophils # (Auto) 3.8 1.8-7.8 10^3/uL Lymphocytes # (Auto) 0.2 L 1.0-4.0 10^3/uL Monocytes # (Auto) 0.3 0.0-1.0 10^3/uL Eosinophils # (Auto) 0.0 0.0-0.3 10^3/uL Basophils # (Auto) 0.0 0.0-0.1 10^3/uL Immature Granulocyte # (Auto) 0.0 0.0-0.1 10^3/uL Neutrophils % (Manual) 87 % Lymphocytes % (Manual) 4 % Eosinophils % (Manual) 9 % Percent Immature Platelet Fraction 6.5 0.0-7.6 % Hypochromasia SLIGHT Microcytosis SLIGHT Sodium Level 140 135-145 MMOL/L Potassium Level 3.7 3.6-5.0 MMOL/L Chloride Level 107 98-107 MMOL/L Carbon Dioxide Level 22 21-32 MMOL/L Anion Gap 11 5-14 MMOL/L Blood Urea Nitrogen 13 7-18 MG/DL Creatinine 0.87 0.60-1.30 MG/DL Estimat Glomerular Filtration Rate 90 BUN/Creatinine Ratio 15 Glucose Level 105 70-105 MG/DL Calcium Level 8.9 8.5-10.1 MG/DL Corrected Calcium 8.8 8.5-10.1 MG/DL Total Bilirubin 0.2 0.1-1.0 MG/DL Aspartate Amino Transf (AST/SGOT) 15 5-34 U/L Alanine Aminotransferase (ALT/SGPT) 15 0-55 U/L Alkaline Phosphatase 45 40-136 U/L Total Protein 7.1 6.4-8.2 GM/DL Albumin 4.1 3.2-4.5 GM/DL Urine Color YELLOW Urine Clarity CLEAR Urine pH 6.0 5-9 Urine Specific [place] >=1.030 1.016-1.022 Urine Protein TRACE H NEGATIVE Urine Glucose (UA) NEGATIVE NEGATIVE Urine Ketones 2+ H NEGATIVE Urine Nitrite NEGATIVE NEGATIVE Urine Bilirubin NEGATIVE NEGATIVE Urine Urobilinogen 0.2 < = 1.0 MG/DL Urine Leukocyte Esterase 2+ H NEGATIVE Urine RBC (Auto) NEGATIVE NEGATIVE Urine RBC NONE /HPF Urine WBC 5-10 H /HPF Urine Squamous Epithelial Cells >50 H /HPF Urine Crystals NONE /LPF Urine Bacteria MODERATE H /HPF Urine Casts NONE /LPF Urine Mucus NEGATIVE /LPF Urine Yeast LARGE H /HPF Urine Culture Indicated YES Urine Test NEGATIVE NEGATIVE My Orders Orders - SANJAY MARQUEZ [employer] Ua Culture If Indicated (01/16/22 16:38) Urine Bedside (01/16/22 16:38) Covid 19 Inhouse Test (01/16/22 16:39) Influenza A And B By Pcr (01/16/22 16:39) Ondansetron Injection (Zofran Injectio (01/16/22 17:15) Diphenhydramine Injection (Benadryl Inje (01/16/22 17:15) Ns Iv 1000 Ml (Sodium Chloride 0.9%) (01/16/22 17:15) Ct Abdomen/Pelvis Wo (01/16/22 17:17) Cbc With Automated Diff (01/16/22 17:45) Comprehensive Metabolic Panel (01/16/22 17:45) Urine Culture (01/16/22 17:31) Manual Differential (01/16/22 17:00) Prochlorperazine Injection (Compazine In (01/16/22 18:15) Medications Given in ED Current Medications Medications Dose Ordered Sig/Dede Route Start Time Stop Time Status Last Admin Dose Admin Diphenhydramine HCl 25 mg ONCE ONCE IVP 01/16/22 17:15 01/16/22 17:16 DC 01/16/22 17:17 25 MG Ondansetron HCl 4 mg ONCE ONCE IVP 01/16/22 17:15 01/16/22 17:16 DC 01/16/22 17:16 4 MG Prochlorperazine Edisylate 10 mg ONCE ONCE IV 01/16/22 18:15 01/16/22 18:16 DC 01/16/22 18:23 10 MG Sodium Chloride 1,000 ml @ 999 mls/hr Q1H ONCE IV 01/16/22 17:15 01/16/22 18:15 DC 01/16/22 17:16 999 MLS/HR Vital Signs/I&O 01/16/22 16:40 Temp 37.0 Pulse 110 B/P (MAP) Pulse Ox 97 O2 Delivery Room Air Departure Impression Primary Impression: COVID-19 Additional Impressions: Nausea and vomiting Abdominal pain Disposition: 01 HOME, SELF-CARE Condition: Improved Departure-Patient Inst. Decision time for Depature: 18:59 Referrals: NO,LOCAL PHYSICIAN (PCP/Family) Primary Care Physician Patient Instructions: COVID-19 (DC) Add. Discharge Instructions: Plan: 1. Take your antibiotics as previously directed. 2. Rest. Drink plenty of fluids to stay hydrated, isolate at home for 5 days, then mask for an additional 5 days. 3. Take Zofran 4mg by mouth every 6 hours as needed for nausea. Take Phenergan 25mg suppository for refractory nausea vomiting. 4. Return for any new, concerning, or worsening symptoms. 5. You can take Miralax over the counter for constipation as directed per navneet pozo. All discharge instructions reviewed with patient and/or family. Voiced understanding. Scripts Ondansetron (Ondansetron Odt) 4 Mg Tab.rapdis 4 MG PO Q6H PRN for NAUSEA/VOMITING-1ST LINE, #30 TAB 0 Refills Prov: SANJAY MARQUEZ APRN 01/16/22 SANJAY MARQUEZ APRN Jan 16, 2022 17:38
[2022-01-16 17:51] LABS: BASOPHILS % (AUTO) 0 % (0-10)
[2022-01-16 17:52] LABS: ALBUMIN 4.1 GM/DL (3.2-4.5)
[2022-01-16 17:53] LABS: EOSINOPHILS % (AUTO) 1 % (0-10); HEMATOCRIT 33 % (35-52); LYMPHOCYTES # (AUTO) 0.2 10^3/uL (1.0-4.0); LYMPHOCYTES % (AUTO) 5 % (12-44); MEAN CORPUSCULAR HEMOGLOBIN 25 pg (25-34); MEAN CORPUSCULAR HGB CONC 30 g/dL (32-36); MEAN CORPUSCULAR VOLUME 83 fL (80-99); MEAN PLATELET VOLUME 13.4 fL (9.0-12.2); MONOCYTES # (AUTO) 0.3 10^3/uL (0.0-1.0); MONOCYTES % (AUTO) 7 % (0-12); NEUTROPHILS # (AUTO) 3.8 10^3/uL (1.8-7.8); NEUTROPHILS % (AUTO) 87 % (42-75); PLATELET COUNT 176 10^3/uL (130-400); POTASSIUM 3.7 MMOL/L (3.6-5.0); WHITE BLOOD COUNT 4.3 10^3/uL (4.3-11.0)
[2022-01-16 17:54] LABS: CALCIUM 8.9 MG/DL (8.5-10.1)
[2022-01-16 17:55] LABS: TOTAL PROTEIN 7.1 GM/DL (6.4-8.2)
[2022-01-16 17:56] LABS: BACTERIA,URINE MODERATE /HPF; SQUAMOUS EPITHELIAL CELL,UR >50 /HPF
[2022-01-16 17:57] LABS: BILIRUBIN,TOTAL 0.2 MG/DL (0.1-1.0)
[2022-01-16 17:57] LABS: YEAST,URINE LARGE /HPF
[2022-01-16 17:59] LABS: CREATININE SERUM 0.87 MG/DL (0.60-1.30)
[2022-01-16] MEDS ORDERED: PROCHLORPERAZINE 10 MG/2ML INJ (COMPAZINE) IV ONE (18:15)
[2022-01-16 18:31] LABS: EOSINOPHILS % (MANUAL) 9 %; HYPOCHROMASIA SLIGHT; LYMPHOCYTES % (MANUAL) 4 %; MICROCYTOSIS SLIGHT; NEUTROPHILS % (MANUAL) 87 %
--- NOTE | 2022-01-16 18:52 | Diagnostic Imaging Report ---
PROCEDURE: CT abdomen and pelvis without contrast. TECHNIQUE: Multiple contiguous axial images were obtained through the abdomen and pelvis without the use of intravenous contrast. Auto Exposure Controls were utilized during the CT exam to meet ALARA standards for radiation dose reduction. INDICATION: Nausea, emesis, pain. COMPARISON: 10/21/2011. FINDINGS: The lung bases are clear. The gallbladder is at the upper limits of normal in size without adjacent inflammatory stranding. The unenhanced liver is unremarkable. The unenhanced spleen is unremarkable. The adrenal glands are unremarkable. The unenhanced pancreas is unremarkable. The unenhanced bilateral kidneys and ureters are unremarkable. No aneurysmal dilatation of the abdominal aorta. The appendix is unremarkable. The urinary bladder is decompressed, therefore not well evaluated. The uterus and adnexal structures are unremarkable for age. Moderate amount of stool is identified throughout the colon without evidence of bowel obstruction. No significant adenopathy, free air or free fluid within the abdomen or pelvis. No acute osseous abnormality. IMPRESSION: 1. Moderate amount of stool throughout the colon, which may relate to constipation. No evidence of bowel obstruction. 2. Otherwise, essentially unremarkable unenhanced examination. Dictated by: Dictated on workstation # [id number]
[2022-01-16] MEDS ORDERED: ONDA4TAB11 PO (19:02)
[2022-01-16] MEDS ORDERED: RX-PHENERGAN 25 MG SUPP PPK#3 PR STA (19:02)
[2022-01-16 19:31] VITALS: BP 135/86
== END 2022-01-16 19:32 | disposition home or self-care (01) ==
LOC: EDUNIT# 16:15 → ER 16:18
DX: U07.1 COVID-19 (principal); R11.2 Nausea with vomiting, unspecified; R10.9 Unspecified abdominal pain; Z87.891 Personal history of nicotine dependence; Z28.310 Unvaccinated for COVID-19; Z32.02 Encounter for pregnancy test, result negative
CPT/HCPCS: 36415; 74176; 80053; 81000; 84703; 85007; 85027; 87088; 87636